=== PATIENT | male | born 1995 | race Caucasian/White ===

== ENCOUNTER 2023-01-29 21:25 | Inpatient (IN) ==
[2023-01-29] MEDS ORDERED: SODIUM CHLORIDE 0.9% 500 ML IV STA (22:14)
[2023-01-29 22:34] LABS: Basophils # (auto) 0.02 K/uL (0-0.2); Basophils % (auto) 0.1 %; Hematocrit (blood only) 40.9 % (42.0-52.0); Hemoglobin 14.8 g/dl (14.0-18.0); Immature Granulocytes # (auto) 0.35 K/uL (0.01-0.20); Immature Granulocytes % (auto) 2.4 %; Lymphocytes # (auto) 1.27 K/uL (1.2-3.4); Lymphocytes % (auto) 8.5 %; Mean Corpuscular Hemoglobin 31.3 pg (25.0-34.0); Mean Corpuscular Hgb Conc 36.2 g/dL (32.0-36.0); Mean Corpuscular Volume 86.5 fL (80.0-100.0); Mean Platelet Volume 11.3 fL (9.4-12.4); Monocytes # (auto) 0.65 K/uL (0.11-0.59); Monocytes % (auto) 4.4 %; Neutrophils % (auto) 84.6 %; Platelet Count 280 K/uL (130-400); RDW Coefficient of Variation 12.8 % (11.5-14.5); Red Blood Count 4.73 M/uL (4.70-6.10); White Blood Count 14.89 K/ul (4.8-10.8)
[2023-01-29 22:42] LABS: Albumin Globulin Ratio 0.9 (0.9-2); Albumin Level 3.5 gm/dl (3.4-5.0); BUN Creatinine Ratio 12.9 (10-20); Bilirubin,Total 0.7 mg/dl (0.2-1.0); Calcium 8.8 mg/dl (8.6-10.3); Creatinine Clr Calc Pharmacy 159.5 ml/min; Est GFR (African American) 117.6 ml/min; Est GFR (Non-African American) 101.5 ml/min; Total Protein 7.5 gm/dl (6.0-8.3)
[2023-01-29] MEDS ORDERED: PANTOprazole 40 MG in SYRINGE 0 ML IV ONE (23:22)
[2023-01-29] MEDS ORDERED: SODIUM CHLORIDE 0.9% 1000ML 1,000 ML IV ONE (23:22)
[2023-01-29] MEDS ORDERED: ACETAMINOPHEN 1,000 MG/100 ML VIAL IV STA (23:22)
--- NOTE | 2023-01-29 23:49 | Emergency Department Note ---
Impression & Plan Abdominal pain, Nausea & vomiting, Diarrhea, Pleural effusion ED Provider Note ED Provider Note NAME: LEONORA SHEARER AGE:27 SEX: Male : 1995 ARRIVES VIA: Private vehicle INFORMANT: Patient ED PROVIDER(s): Alda Estrada DO CHIEF COMPLAINT: Nausea, vomiting, diarrhea, abdominal pain HPI: This is a 27-year-old male presents emergency department due to concern for nausea, vomiting, diarrhea, abdominal pain. Patient states he first started feeling nauseated 1-1/2 to 2 weeks ago. He states several days later he began noticing some intermittent crampy abdominal pain. He states he did see his PCP and was given Zofran that did not improve his nausea. He states he then began having dry heaving was bringing up small bits of mucus and bile. He states he then began having diarrhea that was initially soft but is now fulminant watery diarrhea that is nonbloody. He denies any known sick contacts, change in medications, recent travel. Patient has had multiple prior abdominal surgeries including a fundoplication. PAST MEDICAL HISTORY:See Below PAST SURGICAL HISTORY:See Below FAMILY HISTORY:See Below SOCIAL HISTORY:See Below HOME MEDICATIONS:See Below ALLERGIES:See Below VITALS:See Below PHYSICAL EXAMINATION: GENERAL: alert, uncomfortable appearing, well nourished, no distress, non-toxic, BMI 41 EYE EXAM: normal conjunctiva, PERRL and EOM's grossly intact OROPHARYNX: no exudate, no erythema, lips, buccal mucosa, and tongue normal and mucous membranes are moist NECK: supple, no nuchal rigidity, no adenopathy, non-tender LUNGS: Clear to auscultation. Normal chest wall mechanics, no w/r/r HEART: no murmurs, S1 normal and S2 normal ABDOMEN: abdomen soft, diffuse abdominal tenderness with palpation, umbilical hernia noted with coughing although this is reducible, normo-active bowel sounds, no rebound or guarding. BACK: Back is symmetrical on inspection and there is no deformity, no midline tenderness, no CVA tenderness. SKIN: no rashes, petechiae, orbruising UPPER EXTREMITIES: upper extremities are grossly normal. FROM, nml pulses b/l. LOWER EXTREMITIES: No pitting edema. FROM, nml pulses b/l. NEURO EXAM: Normal sensorium, cranial nerves II-XII grossly intact, normal speech, no facial droop,nogross weakness of arms, no gross weakness of legs. Gross sensation intact. No ataxia. Vital Signs: reviewed and remarkable Differential Diagnosis: colitis, sbo, viral syndrome, diverticulitis, PUD, GI bleed, perforation, pancreatitis, as well as others were considered MEDICAL DECISION MAKING: This is a 27 yo male who presents with concern for 1.5-2 weeks of worsening GI symptoms. Patient was tachycardia on arrival, but other VS stable. Labs drawn and sent, IV established, EKG and CXR performed and interpreted at bedside, and patient placed on telemetry. Patient given IV fluids, IV tylenol, IV protonix, IV metoclopromide, and IV benadryl. He was sent for CT a/p. Umbilical hernia noted, not incarcerated, no SBO, no acute GI pathology, however left pleural effusion noted. CXR then added which revealed left pleural effusion additionally. I discussed all results with patient and family at bedside. Patient does have hx of asthma and states he previously had pna as a child. Blood cultures, covid swab, procal added and patient started on IV antibiotics. Case discussed with hospitalist for additional evaluation and mgmt. Patient without any respiratory distress or hypoxia in the ER. Mild hyponatremia and hypokalemia also noted. Consultation(s): [] ER Treatment Provided: See below Diagnostics Interpreted By Me: -ECG: sinus tachycardia at 124, nml axis, nml intervals, nonspecific ST/T wave changes -Cardiac Monitoring: An order was placed for continuous cardiac monitoring. The monitor shows a rate of 113 with sinus tachycardia rhythm. -Laboratory studies: As stated above and show below. -Imaging studies: X-ray Chest: A single view study of the chest was reviewed and was negative for cardiomegaly, focal infiltrate, pulmonary edema, or wide me diastinum. Left pleural effusion noted. Triage Nursing Note Reviewed Prior/Outside Records Reviewed Past Med/Surg History Medical History Anxiety and depression Asthma last exacerbation > 3 months ago, rescue inhaler use daily in the morning and HS Cervical radiculopathy Environmental and seasonal allergies Eosinophilic esophagitis GERD (gastroesophageal reflux disease) no current medications, controlled per pt History of atrial septal defect "spontaneous ASD closure on echo 12/1998" History of COVID-19 06/14/20-denies residual issues Hypertension controlled, stable per pt Post traumatic stress disorder denies concerns regarding upcoming surgery, OR room securing restraints/claustrophobia Pre-diabetes pt denies, states was on metformin and then d/c by PCP. Pre-op A1c 5.1% Sleep apnea not currently on treatment Tachycardia reports intermittent history, denies palpitations, dizziness, lightheadedness Temporomandibular joint disorder JAW CLICKING/has locked twice-last 3 yrs ago-unrelated to procedure per pt Surgical History Family history of reaction to anesthesia FATHER-WAKES UP IN MIDDLE OF PROCEDURE History of anesthesia reaction WAKES UP WITH ANESTHESIA-endoscopy History of appendectomy History of bronchoscopy MULTIPLE TIMES History of colonoscopy History of esophagogastroduodenoscopy (EGD) History of Katherine fundoplication 2009 AT [facility] Hx laparoscopic cholecystectomy FREDY ortiz Family History Grandfather (Maternal) Family history of diabetes mellitus Social History Smoking Status: Never smoker Tobacco Type: Smokeless Tobacco (Dip or Chew) Second Hand Exposure: No; Do You Dip or Chew Tobacco: Yes ("rarely"); Hx Alcohol Use: Yes Alcohol type: hard liquor Hx Substance Use: No Preferred Language: Frisian Communication Ability: Effective Kiln Hand Required: No Beliefs That Will Affect Care: None Current Living Situation: Alone Feels Safe at Home: Yes Assistive Devices: Contacts Allergies Allergies Allergy/AdvReac Type Severity Reaction Status Date / Time nitroglycerin Allergy Severe TROUBLE Verified 01/30/23 01:09 BREATHING Sulfa (Sulfonamide Allergy Intermediate EYES Verified 01/30/23 01:09 Antibiotics) SWELLING/WITH EYE DROPS sulfamethoxazole Allergy Intermediate EYES Verified 01/30/23 01:09 SWELLING trimethoprim Allergy Intermediate EYES Verified 01/30/23 01:09 SWELLING Bactrim Allergy Unknown UNK Verified 11/16/15 23:40 Home Meds Home Medications Medication Instructions Recorded Confirmed dupilumab 100 mg/0.67 mL 100 mg subcut Q14D 08/31/21 01/30/23 subcutaneous syringe (Gorb) buspirone 10 mg tablet 10 mg PO TID 01/30/23 01/30/23 cyclobenzaprine 10 mg tablet 10 mg PO TID PRN Spasms 01/30/23 01/30/23 gabapentin 300 mg capsule 300 mg PO TID 01/30/23 01/30/23 mirtazapine 15 mg disintegrating 15 mg translingual HS 01/30/23 01/30/23 tablet naltrexone 50 mg tablet 50 mg PO DAILY 01/30/23 01/30/23 ondansetron 4 mg disintegrating 4 mg translingual BID PRN Nausea 01/30/23 01/30/23 tablet prednisone 20 mg tablet 20 mg PO UD 01/30/23 01/30/23 Previous Rx's Medication Instructions Recorded albuterol sulfate 2.5 mg/3 mL 2.5 mg (3 mL) inhalation Q4H PRN 12/07/19 (0.083 %) solution for nebulization shortness of breath or wheezing #180 mL albuterol sulfate 90 mcg/actuation 2 puffs inhalation QID PRN 12/07/19 aerosol inhaler (Ventolin HFA) shortness of breath or wheezing #18 grams Results & Data (ED) Vital Signs Vital Signs - 24 hr 01/29/23 21:30 01/29/23 22:35 01/29/23 22:36 Temperature 36.7 C Temperature Source Temporal Artery Scan Pulse Rate 131 H 123 H Pulse Rate [Apical] 121 H Pulse Rate from SpO2 Sensor Respiratory Rate 16 20 Respiratory Effort / Characteristics Non-Labored Spontaneous Respiratory Depth Normal Blood Pressure 145/90 H Blood Pressure [Right Arm] 124/92 Blood Pressure Mean 108 Blood Pressure Mean [Right Arm] 102 Blood Pressure Position Sitting Pulse Oximetry 94 98 Oxygen Delivery Method Room Air Room Air Sepsis Recent Fever Within 48 Hours No Sepsis New/Unexplained Change in Mental Status No Sepsis Action Taken by Nursing No Action Required 01/29/23 23:30 01/30/23 02:00 01/30/23 02:34 Temperature Temperature Source Pulse Rate 113 H Pulse Rate [Apical] 121 H 112 H Pulse Rate from SpO2 Sensor Respiratory Rate 20 20 Respiratory Effort / Characteristics Respiratory Depth Blood Pressure Blood Pressure [Right Arm] 117/76 126/93 Blood Pressure Mean Blood Pressure Mean [Right Arm] 89 104 Blood Pressure Position Pulse Oximetry 96 92 Oxygen Delivery Method Room Air Room Air Sepsis Recent Fever Within 48 Hours Sepsis New/Unexplained Change in Mental Status Sepsis Action Taken by Nursing 01/29/23 22:33 01/29/23 22:34 01/29/23 23:00 Temperature Temperature Source Pulse Rate 121 H Pulse Rate [Apical] Pulse Rate from SpO2 Sensor Respiratory Rate 22 Respiratory Effort / Characteristics Respiratory Depth Blood Pressure 124/92 122/78 Blood Pressure [Right Arm] Blood Pressure Mean 105 89 Blood Pressure Mean [Right Arm] Blood Pressure Position Pulse Oximetry Oxygen Delivery Method Sepsis Recent Fever Within 48 Hours Sepsis New/Unexplained Change in Mental Status Sepsis Action Taken by Nursing 01/29/23 23:00 01/29/23 23:30 01/29/23 23:30 Temperature Temperature Source Pulse Rate 124 H 119 H Pulse Rate [Apical] Pulse Rate from SpO2 Sensor Respiratory Rate 17 10 L Respiratory Effort / Characteristics Respiratory Depth Blood Pressure 117/76 Blood Pressure [Right Arm] Blood Pressure Mean 91 Blood Pressure Mean [Right Arm] Blood Pressure Position Pulse Oximetry Oxygen Delivery Method Sepsis Recent Fever Within 48 Hours Sepsis New/Unexplained Change in Mental Status Sepsis Action Taken by Nursing 01/30/23 00:00 01/30/23 00:00 01/30/23 00:25 Temperature Temperature Source Pulse Rate 116 H Pulse Rate [Apical] Pulse Rate from SpO2 Sensor Respiratory Rate 16 Respiratory Effort / Characteristics Respiratory Depth Blood Pressure 80/54 L 96/79 L Blood Pressure [Right Arm] Blood Pressure Mean 69 86 Blood Pressure Mean [Right Arm] Blood Pressure Position Pulse Oximetry Oxygen Delivery Method Sepsis Recent Fever Within 48 Hours Sepsis New/Unexplained Change in Mental Status Sepsis Action Taken by Nursing 01/30/23 00:25 01/30/23 00:30 01/30/23 00:30 Temperature Temperature Source Pulse Rate 118 H 118 H Pulse Rate [Apical] Pulse Rate from SpO2 Sensor Respiratory Rate 11 L 13 Respiratory Effort / Characteristics Respiratory Depth Blood Pressure 101/72 Blood Pressure [Right Arm] Blood Pressure Mean 82 Blood Pressure Mean [Right Arm] Blood Pressure Position Pulse Oximetry Oxygen Delivery Method Sepsis Recent Fever Within 48 Hours Sepsis New/Unexplained Change in Mental Status Sepsis Action Taken by Nursing 01/30/23 01:00 01/30/23 01:59 01/30/23 01:59 Temperature Temperature Source Pulse Rate 109 H 111 H Pulse Rate [Apical] Pulse Rate from SpO2 Sensor 110 H 112 H Respiratory Rate 20 18 Respiratory Effort / Characteristics Respiratory Depth Blood Pressure 126/93 Blood Pressure [Right Arm] Blood Pressure Mean 104 Blood Pressure Mean [Right Arm] Blood Pressure Position Pulse Oximetry 95 93 Oxygen Delivery Method Sepsis Recent Fever Within 48 Hours Sepsis New/Unexplained Change in Mental Status Sepsis Action Taken by Nursing 01/30/23 02:00 Temperature Temperature Source Pulse Rate 112 H Pulse Rate [Apical] Pulse Rate from SpO2 Sensor 111 H Respiratory Rate 15 Respiratory Effort / Characteristics Respiratory Depth Blood Pressure Blood Pressure [Right Arm] Blood Pressure Mean Blood Pressure Mean [Right Arm] Blood Pressure Position Pulse Oximetry 93 Oxygen Delivery Method Sepsis Recent Fever Within 48 Hours Sepsis New/Unexplained Change in Mental Status Sepsis Action Taken by Nursing Laboratory Data 01/29/23 22:00 01/29/23 22:00 Lab Results 01/29/23 01/29/23 01/29/23 Range/Units 22:00 22:00 22:00 WBC 14.89 H (4.8-10.8) K/ul RBC 4.73 (4.70-6.10) M/uL Hgb 14.8 (14.0-18.0) g/dl Hct 40.9 L (42.0-52.0) % MCV 86.5 (80.0-100.0) fL MCH 31.3 (25.0-34.0) pg MCHC 36.2 H (32.0-36.0) g/dL RDW Std Deviation 40.0 (36.4-46.3) fL RDW Coeff of Pacheco 12.8 (11.5-14.5) % Plt Count 280 (130-400) K/uL MPV 11.3 (9.4-12.4) fL Immature Gran % (Auto) 2.4 % Neut % (Auto) 84.6 % Lymph % (Auto) 8.5 % Gaston % (Auto) 4.4 % Eos % (Auto) 0.0 % Baso % (Auto) 0.1 % Neut # (Auto) 12.60 H (1.40-6.50) K/uL Lymph # (Auto) 1.27 (1.2-3.4) K/uL Gaston # (Auto) 0.65 H (0.11-0.59) K/uL Eos # (Auto) 0.00 (0-0.50) K/uL Baso # (Auto) 0.02 (0-0.2) K/uL Immature Gran # (Auto) 0.35 H (0.01-0.20) K/uL Sodium 129 L (136-145) mmol/L Potassium 3.0 L (3.5-5.1) mmol/L Chloride 90 L (98-107) mmol/L Carbon Dioxide 27 (21-32) mmol/L Anion Gap 12 H (3-11) BUN 13 (6-23) mg/dl Creatinine 1.01 (0.6-1.4) mg/dl Est Cr Clr Drug Dosing 159.5 ml/min Est GFR ( Amer) 117.6 ml/min Est GFR (Non-Af Amer) 101.5 ml/min BUN/Creatinine Ratio 12.9 (10-20) Glucose 123 H (70-99(Fasting)) mg/dl Calcium 8.8 (8.6-10.3) mg/dl Magnesium 2.1 (1.7-2.4) mg/dl Total Bilirubin 0.7 (0.2-1.0) mg/dl AST 42 H (13-39) U/L ALT 29 (7-52) U/L Alkaline Phosphatase 59 (34-104) U/L Total Protein 7.5 (6.0-8.3) gm/dl Albumin 3.5 (3.4-5.0) gm/dl Globulin 4.0 (2.5-4.0) gm/dl Albumin/Globulin Ratio 0.9 (0.9-2) Procalcitonin Cancelled Adenovirus (PCR) (NotDetected) B. pertussis DNA (PCR) (NotDetected) B.parapertussis DNA PCR (NotDetected) C. pneumoniae DNA (PCR) (NotDetected) Coronavirus OC43 (PCR) (NotDetected) Coronavirus HKU1 (PCR) (NotDetected) Coronavirus 229E (PCR) (NotDetected) SARS-CoV-2 (PCR) (NotDetected) Coronavirus NL63 (PCR) (NotDetected) Human Metapneumovir PCR (NotDetected) Influenza Type A (PCR) (NotDetected) Influenza Type B (PCR) (NotDetected) M. pneumoniae (PCR) (NotDetected) Parainfluenza 1 (PCR) (NotDetected) Parainfluenza 2 (PCR) (NotDetected) Parainfluenza 3 (PCR) (NotDetected) Parainfluenza 4 (PCR) (NotDetected) RSV (PCR) (NotDetected) Entero/Rhino (PCR) (NotDetected) 01/30/23 01/30/23 Range/Units 02:09 02:13 WBC (4.8-10.8) K/ul RBC (4.70-6.10) M/uL Hgb (14.0-18.0) g/dl Hct (42.0-52.0) % MCV (80.0-100.0) fL MCH (25.0-34.0) pg MCHC (32.0-36.0) g/dL RDW Std Deviation (36.4-46.3) fL RDW Coeff of Pacheco (11.5-14.5) % Plt Count (130-400) K/uL MPV (9.4-12.4) fL Immature Gran % (Auto) % Neut % (Auto) % Lymph % (Auto) % Gaston % (Auto) % Eos % (Auto) % Baso % (Auto) % Neut # (Auto) (1.40-6.50) K/uL Lymph # (Auto) (1.2-3.4) K/uL Gaston # (Auto) (0.11-0.59) K/uL Eos # (Auto) (0-0.50) K/uL Baso # (Auto) (0-0.2) K/uL Immature Gran # (Auto) (0.01-0.20) K/uL Sodium (136-145) mmol/L Potassium (3.5-5.1) mmol/L Chloride (98-107) mmol/L Carbon Dioxide (21-32) mmol/L Anion Gap (3-11) BUN (6-23) mg/dl Creatinine (0.6-1.4) mg/dl Est Cr Clr Drug Dosing ml/min Est GFR ( Amer) ml/min Est GFR (Non-Af Amer) ml/min BUN/Creatinine Ratio (10-20) Glucose (70-99(Fasting)) mg/dl Calcium (8.6-10.3) mg/dl Magnesium (1.7-2.4) mg/dl Total Bilirubin (0.2-1.0) mg/dl AST (13-39) U/L ALT (7-52) U/L Alkaline Phosphatase (34-104) U/L Total Protein (6.0-8.3) gm/dl Albumin (3.4-5.0) gm/dl Globulin (2.5-4.0) gm/dl Albumin/Globulin Ratio (0.9-2) Procalcitonin 0.72 H Adenovirus (PCR) Not Detected (NotDetected) B. pertussis DNA (PCR) Not Detected (NotDetected) B.parapertussis DNA PCR Not Detected (NotDetected) C. pneumoniae DNA (PCR) Not Detected (NotDetected) Coronavirus OC43 (PCR) Not Detected (NotDetected) Coronavirus HKU1 (PCR) Not Detected (NotDetected) Coronavirus 229E (PCR) Not Detected (NotDetected) SARS-CoV-2 (PCR) Not Detected (NotDetected) Coronavirus NL63 (PCR) Not Detected (NotDetected) Human Metapneumovir PCR Not Detected (NotDetected) Influenza Type A (PCR) Not Detected (NotDetected) Influenza Type B (PCR) Not Detected (NotDetected) M. pneumoniae (PCR) Not Detected (NotDetected) Parainfluenza 1 (PCR) Not Detected (NotDetected) Parainfluenza 2 (PCR) Not Detected (NotDetected) Parainfluenza 3 (PCR) Not Detected (NotDetected) Parainfluenza 4 (PCR) Not Detected (NotDetected) RSV (PCR) Not Detected (NotDetected) Entero/Rhino (PCR) Not Detected (NotDetected) Administered Medications Buspirone HCl (Buspirone 5 Mg Tab) 10 mg PO TID [facility] Stop: 03/01/23 08:59 Last Admin: 01/30/23 09:33 Dose: 10 mg Documented By: JACK Enoxaparin Sodium (Enoxaparin Inj 40 Mg/0.4 Ml Syr) 40 mg SQ QAM OMI Stop: 03/01/23 08:59 Last Admin: 01/30/23 09:34 Dose: Not Given Documented By: JACK Folic Acid (Folic Acid 1 Mg Tab) 1 mg PO QAM OMI Stop: 03/01/23 08:59 Last Admin: 01/30/23 09:33 Dose: 1 mg Documented By: JACK Gabapentin (Gabapentin 300 Mg Cap) 300 mg PO TID OMI Stop: 03/01/23 08:59 Last Admin: 01/30/23 09:33 Dose: 300 mg Documented By: JACK Ampicillin Sodium/Sulbactam Sodium 3,000 mg/ Sodium Chloride 108 mls @ 200 mls/hr IV Q6H OMI; Protocol Stop: 02/06/23 09:59 Last Infusion: 01/30/23 11:55 Dose: 0 mls/hr Documented By: Admin: 01/30/23 10:26 Dose: 200 mls/hr Documented By: LILA Alteplase, Recombinant 10 mg/ (Syringe) 60 mls @ 0.0006 mls/min IPL Q12H OMI; Protocol Stop: 02/02/23 08:59 Last Admin: 01/30/23 10:18 Dose: 0.0006 mls/min Documented By: TRAVIS Co-signed By: LILA Dornase Ang 5 ml/ Syringe 30 mls @ 0.0006 mls/min IPL Q12H OMI; Protocol Stop: 02/02/23 09:59 Last Admin: 01/30/23 11:35 Dose: 0.0006 mls/min Documented By: TRAVIS Morphine Sulfate (Morphine Sulfate 4 Mg/Ml 1 Ml Carp\\Vial) 4 mg IV Q6H PRN PRN Reason: Pain Stop: 02/13/23 02:55 Last Admin: 01/30/23 09:55 Dose: 4 mg Documented By: JACK Multivitamins (Multivitamin Tab) 1 tab PO QAM OMI Stop: 03/01/23 08:59 Last Admin: 01/30/23 09:33 Dose: 1 tab Documented By: JACK Discontinued Medications Diphenhydramine HCl (Diphenhydramine 50 Mg/Ml Vial) 25 mg IV NOW STA Stop: 01/30/23 00:17 Last Admin: 01/30/23 00:32 Dose: 25 mg Documented By: YAQUELIN Sodium Chloride (Nss) 500 mls @ 999 mls/hr IV .Q31M STA Stop: 01/29/23 22:44 Last Infusion: 01/29/23 23:42 Dose: 0 mls/hr Documented By: Admin: 01/29/23 22:33 Dose: 999 mls/hr Documented By: JASPREET Sodium Chloride (Nss 1000ml) 1,000 mls @ 999 mls/hr IV .Q1H1M ONE Stop: 01/30/23 00:22 Last Infusion: 01/30/23 01:06 Dose: 0 mls/hr Documented By: Admin: 01/29/23 23:37 Dose: 999 mls/hr Documented By: YAQUELIN Pantoprazole Sodium 40 mg/ (Syringe) 10 mls @ 5 mls/min IV NOW ONE Stop: 01/29/23 23:23 Last Admin: 01/29/23 23:37 Dose: 5 mls/min Documented By: YAQUELIN Acetaminophen (Ofirmev) 1,000 mg in 100 mls @ 400 mls/hr IV NOW STA Stop: 01/29/23 23:36 Last Infusion: 01/30/23 00:19 Dose: 0 mls/hr Documented By: Admin: 01/29/23 23:37 Dose: 400 mls/hr Documented By: YAQUELIN Ceftriaxone Sodium (Rocephin) 2,000 mg in 70 mls @ 140 mls/hr IV NOW STA Stop: 01/30/23 02:07 Last Infusion: 01/30/23 03:06 Dose: 0 mls/hr Documented By: Admin: 01/30/23 01:57 Dose: 140 mls/hr Documented By: YAQUELIN Metronidazole (Flagyl) 500 mg in 100 mls @ 100 mls/hr IV NOW STA; Protocol Stop: 01/30/23 02:37 Last Infusion: 01/30/23 03:05 Dose: 0 mls/hr Documented By: Admin: 01/30/23 01:58 Dose: 100 mls/hr Documented By: YAQUELIN Sodium Chloride (Nss 1000ml) 1,000 mls @ 125 mls/hr IV .Q8H OMI Stop: 03/01/23 01:44 Last Admin: 01/30/23 03:05 Dose: Not Given Documented By: ALMITA Thiamine HCl 100 mg/ Syringe 10 mls @ 2 mls/min IV NOW STA Stop: 01/30/23 02:39 Last Admin: 01/30/23 04:08 Dose: 2 mls/min Documented By: ALMITA Potassium Chloride (K Matthew / Wtr) 10 meq in 100 mls @ 100 mls/hr IV Q1H OMI Stop: 01/30/23 07:59 Last Admin: 01/30/23 12:37 Dose: 50 mls/hr Documented By: Infusion: 01/30/23 12:37 Dose: 50 mls/hr Documented By: Admin: 01/30/23 11:07 Dose: 50 mls/hr Documented By: Infusion: 01/30/23 09:40 Dose: 0 mls/hr Documented By: Admin: 01/30/23 07:06 Dose: 50 mls/hr Documented By: Infusion: 01/30/23 07:05 Dose: 0 mls/hr Documented By: Infusion: 01/30/23 05:06 Dose: 50 mls/hr Documented By: Admin: 01/30/23 05:05 Dose: 100 mls/hr Documented By: ALMITA Ampicillin Sodium/Sulbactam Sodium 3,000 mg/ Sodium Chloride 108 mls @ 200 mls/hr IV NOW STA Stop: 01/30/23 03:29 Last Infusion: 01/30/23 05:06 Dose: 0 mls/hr Documented By: Admin: 01/30/23 04:07 Dose: 200 mls/hr Documented By: ALMITA Lactated Ringer's (Lr) 1,000 mls @ 100 mls/hr IV .Q10H ONE Stop: 01/30/23 12:55 Last Infusion: 01/30/23 10:20 Dose: 0 mls/hr Documented By: Admin: 01/30/23 04:09 Dose: 100 mls/hr Documented By: ALMITA Ioversol (Ioversol 350 Mg 125ml Prefilled Syringe) 125 ml IV ONCE ONE Stop: 01/30/23 00:25 Last Admin: 01/30/23 00:24 Dose: 114 ml Documented By: BRENDAN Ipratropium Dover (Ipratropium [place] Neb Soln 0.02% 2.5 Ml Vial) 0.5 mg INH NOW STA Stop: 01/30/23 04:32 Last Admin: 01/30/23 05:06 Dose: 0.5 mg Documented By: ALMITA Levalbuterol HCl (Levalbuterol 1.25 Mg/3 Ml Neb) 1.25 mg NEB NOW STA Stop: 01/30/23 04:32 Last Admin: 01/30/23 05:06 Dose: 1.25 mg Documented By: ALMITA Lidocaine HCl (Lidocaine 1% Local 20 Ml Vial) Confirm Administered Dose 1 ml .ROUTE .STK-MED ONE Stop: 01/30/23 08:16 Last Admin: 01/30/23 08:30 Dose: 10 ml Documented By: JACK Metoclopramide HCl (Metoclopramide Hcl Inj 5 Mg/Ml 2 Ml Vial) 5 mg IV ONE ONE Stop: 01/30/23 00:17 Last Admin: 01/30/23 00:32 Dose: 5 mg Documented By: YAQUELIN Imaging Data Radiologist's Impression: Chest X-Ray 01/30/23 01:31 XR chest 1V portable CLINICAL HISTORY: pleural effusion TECHNIQUE: Single frontal radiograph of the chest was obtained. Comparison: Comparison is made to chest radiograph 09/07/2021 FINDINGS: No lines and tubes are seen. Cardiomegaly is noted. Loculated hydropneumothorax is seen in the left pleura. IMPRESSION: Loculated hydropneumothorax is in the left hemithorax. ACT 112: Negative or not required by law. Electronically signed by: Froilan Galvan M.D. 01/30/2023 7:50 AM Discharge Plan Visit Data Chief Complaint: Dehydration Stated Complaint: DEGYDRATED, NOT RETAINING ED Provider: Alda Estrada Discharge Problem: Abdominal pain, Nausea & vomiting, Diarrhea, Pleural effusion Patient Disposition: Admitted As Inpatient Discharge Instructions Interventions: ED Discharge Assessment Last Done: 01/30/23 03:12
[2023-01-30] MEDS ORDERED: diphenhydrAMINE 50 MG/ML VIAL IV STA (00:16)
[2023-01-30] MEDS ORDERED: METOCLOPRAMIDE HCL INJ 5 MG/ML 2 ML VIAL IV ONE (00:16)
[2023-01-30] MEDS ORDERED: IOVERSOL 350 MG 125mL Prefilled Syringe IV ONE (00:24)
--- NOTE | 2023-01-30 01:06 | CT Scan Report ---
Exam(s): CT ABDOMEN + PELVIS With Contrast IV Amt: 114 ML OPTIRAY 350 EXAM: CT Abdomen and Pelvis With Intravenous Contrast CLINICAL HISTORY: Reason for exam: n/v/d, abd pain. TECHNIQUE: Axial computed tomography images of the abdomen and pelvis with intravenous contrast. CTDI is 36 mGy and DLP is 2013.73 mGy-cm. Automated exposure control was utilized for the study. A dose lowering technique was utilized adhering to the principles of ALARA. CONTRAST: Patient received 114 ML OPTIRAY 350 of IV contrast COMPARISON: No relevant prior studies available. FINDINGS: Lung bases: Unremarkable. No mass. No consolidation. Pleural space: Large left pleural effusion which is partially loculated and contains large volume air. Correlate for empyema with possibility of gas-forming bacteria. Chest tube should be considered. ABDOMEN: Liver: Hepatic steatosis. Gallbladder and bile ducts: Cholecystectomy. No ductal dilation. Pancreas: Unremarkable. No mass. No ductal dilation. Spleen: Unremarkable. No splenomegaly. Adrenals: Unremarkable. No mass. Kidneys and ureters: Unremarkable. No solid mass. No hydronephrosis. Stomach and bowel: Unremarkable. No obstruction. No mucosal thickening. PELVIS: Appendix: No findings to suggest acute appendicitis. Bladder: Unremarkable. No mass. Reproductive: Unremarkable as visualized. ABDOMEN and PELVIS: Intraperitoneal space: Unremarkable. No free air. No significant fluid collection. Bones/joints: No acute fracture. No dislocation. Soft tissues: Fat-containing umbilical hernia measures 4.4 x 3.7 cm. Vasculature: Unremarkable. No abdominal aortic aneurysm. Lymph nodes: Unremarkable. No enlarged lymph nodes. IMPRESSION: 1. Large left pleural effusion which is partially loculated and contains large volume air. Correlate for empyema with possibility of gas-forming bacteria. Chest tube should be considered. 2. Hepatic steatosis. 3. Cholecystectomy. 4. Fat-containing umbilical hernia measures 4.4 x 3.7 cm. Electronically signed by: Edis Noyola MD 01/30/23 01:05 AM
[2023-01-30] MEDS ORDERED: cefTRIAXone SODIUM 2,000 MG/70 ML BAG IV STA (01:38)
[2023-01-30] MEDS ORDERED: metroNIDAZOLE 500 MG/100 ML BAG IV STA (01:38)
[2023-01-30] MEDS ORDERED: SODIUM CHLORIDE 0.9% 1000ML 1,000 ML IV SCH (01:45)
[2023-01-30] MEDS ORDERED: THIAMINE HCL 100 MG in SYRINGE 9 ML IV STA (02:35)
--- NOTE | 2023-01-30 02:52 | History & Physical Report ---
Date of Service January 30, 2023 Assessment & Plan (1) Sepsis: Plan: Secondary to left-sided empyema Patient predisposed to aspiration episodes given alcohol abuse. Hypokalemia secondary to gastroenteritis rule out bacterial causes HTN, BP on the lower side, not on maintenance medications hx ASD bronchial asthma, not in acute exacerbation hx eosinophilic esophagitis/GERD prediabetes, hemoglobin A1c of 5.1 last year anxiety/mood disorder, at baseline Medical telemetry CS, Unasyn Dedicated CT chest for empyema Pulmonology consult re: empyema Replace electrolytes stool CS, C. difficile DVT prophylaxis. Lovenox subcu Full code Text document was generated using Voalte voice recognition software. It may contain grammatical or spelling errors. Kindly contact undersigned for clarification of any documentation item in question. History of Present Illness Chief Complaint: Cough, abdominal pain Primary Care Provider: Lorenza Mcdonough DO History obtained from patient, family, and records. Medical history significant for HTN, ASD, bronchial asthma, eosinophilic esophag itis, GERD status post surgery, prediabetes, [place]-Schlatter disease, anxiety/mood disorder, alcohol abuse. Last confinement November 2015 for chest pain. ACS ruled out. 2 weeks ago, patient passed out outside a local gasoline station. Patient evaluated at [facility] ER. Symptoms attributed to alcohol abuse as per patient. Last week, patient noted cough symptoms productive of junky yellow-green sputum. No chest pain, no SOB. Patient unaware of aspiration episodes. Patient noted achy abdominal pain worsened by cough symptoms followed by watery diarrhea symptoms. 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 No recent antibiotic Rx. IV Ceftriaxone and Flagyl administered at the ER for empyema on CT imaging. 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 Allergies Allergy/AdvReac Type Severity Reaction Status Date / Time medel Allergy Severe EOSINPHILS Verified 01/30/23 01:09 IN THROAT corn Allergy Severe EOSINOPHILS Verified 01/30/23 01:09 IN THROAT nitroglycerin Allergy Severe TROUBLE Verified 01/30/23 01:09 BREATHING oats Allergy Severe EOSINOPHILS Verified 09/27/21 14:39 IN THROAT peas Allergy Severe EOSINOPHILS Verified 01/30/23 01:09 IN THROAT pork derived (porcine) Allergy Severe EOSINOPHILS Verified 01/30/23 01:09 IN THROAT soy Allergy Severe ESINOPHILS Verified 01/30/23 01:09 IN THROAT Sulfa (Sulfonamide Allergy Intermediate EYES Verified 01/30/23 01:09 Antibiotics) SWELLING/WITH EYE DROPS sulfamethoxazole Allergy Intermediate EYES Verified 01/30/23 01:09 SWELLING trimethoprim Allergy Intermediate EYES Verified 01/30/23 01:09 SWELLING Bactrim Allergy Unknown UNK Verified 11/16/15 23:40 Home Medications Medication Instructions Recorded Confirmed Type albuterol sulfate 2.5 mg/3 mL 2.5 mg (3 mL) inhalation Q4H PRN 12/07/19 01/30/23 Rx (0.083 %) solution for nebulization shortness of breath or wheezing #180 mL albuterol sulfate 90 mcg/actuation 2 puffs inhalation QID PRN 12/07/19 01/30/23 Rx aerosol inhaler (Ventolin HFA) shortness of breath or wheezing #18 grams dupilumab 100 mg/0.67 mL 100 mg subcut Q14D 08/31/21 01/30/23 History subcutaneous syringe (Dupixent) buspirone 10 mg tablet 10 mg PO TID 01/30/23 01/30/23 History cyclobenzaprine 10 mg tablet 10 mg PO TID PRN Spasms 01/30/23 01/30/23 History gabapentin 300 mg capsule 300 mg PO TID 01/30/23 01/30/23 History mirtazapine 15 mg disintegrating 15 mg translingual HS 01/30/23 01/30/23 History tablet naltrexone 50 mg tablet 50 mg PO DAILY 01/30/23 01/30/23 History ondansetron 4 mg disintegrating 4 mg translingual BID PRN Nausea 01/30/23 01/30/23 History tablet prednisone 20 mg tablet 20 mg PO UD 01/30/23 01/30/23 History Past Med/Surg History Medical History Anxiety and depression Asthma last exacerbation > 3 months ago, rescue inhaler use daily in the morning and HS Cervical radiculopathy Environmental and seasonal allergies Eosinophilic esophagitis GERD (gastroesophageal reflux disease) no current medications, controlled per pt History of atrial septal defect "spontaneous ASD closure on echo 12/1998" History of COVID-19 06/14/20-denies residual issues Hypertension controlled, stable per pt Post traumatic stress disorder denies concerns regarding upcoming surgery, OR room securing restraints/claustrophobia Pre-diabetes pt denies, states was on metformin and then d/c by PCP. Pre-op A1c 5.1% Sleep apnea not currently on treatment Tachycardia reports intermittent history, denies palpitations, dizziness, lightheadedness Temporomandibular joint disorder JAW CLICKING/has locked twice-last 3 yrs ago-unrelated to procedure per pt Surgical History Family history of reaction to anesthesia FATHER-WAKES UP IN MIDDLE OF PROCEDURE History of anesthesia reaction WAKES UP WITH ANESTHESIA-endoscopy History of appendectomy History of bronchoscopy MULTIPLE TIMES History of colonoscopy History of esophagogastroduodenoscopy (EGD) History of Katherine fundoplication 2009 AT [place] Hx laparoscopic cholecystectomy [place] Family History Grandfather (Maternal) Family history of diabetes mellitus Social History Smoking Status: Never smoker Tobacco Type: Smokeless Tobacco (Dip or Chew) Second Hand Exposure: No; Do You Dip or Chew Tobacco: Yes ("rarely"); Hx Alcohol Use: Yes Alcohol type: hard liquor Hx Substance Use: No Preferred Language: Yi Communication Ability: Effective Clothing Man Required: No Beliefs That Will Affect Care: None Current Living Situation: Alone Feels Safe at Home: Yes Safety Concerns: Feels Safe At This Time Assistive Devices: Contacts Review of Systems Review of Systems: As per HPI, all other systems reviewed and negative Physical Exam Physical Exam: GENERAL: Slightly uncomfortable, pleasant, morbidly obese, looks older than stated age, no respiratory distress SKIN: Normal color, warm HEENT: [place] palpebral conjunctivae, no ptosis, dry buccal mucosa NECK : Supple, short neck, no tenderness CHEST : Decreased breath sounds, no tenderness HEART : Tachycardic, no obvious murmurs ABDOMEN: Some distention, central abdominal tenderness EXTREMITIES : Minimal LE swelling, no LE tenderness, no other conspicuous deformities noted NEUROLOGIC : Coherent, no facial asymmetry, no other gross focality Results & Data Results & Data Vital Signs (Past 12 Hours) Vital Signs Temp Pulse Pulse Resp BP BP Pulse Ox 01/30/23 02:34 113 H 01/30/23 02:00 112 H 20 126/93 92 01/29/23 23:30 121 H 20 117/76 96 01/29/23 22:36 123 H 01/29/23 22:35 121 H 20 124/92 98 01/29/23 21:30 36.7 C 131 H 16 145/90 H 94 O2 Del Method 01/30/23 02:34 01/30/23 02:00 Room Air 01/29/23 23:30 Room Air 01/29/23 22:36 01/29/23 22:35 Room Air 01/29/23 21:30 Room Air Laboratory Results Laboratory Results WBC 14.89 K/ul (4.8-10.8) H 01/29/23 22:00 RBC 4.73 M/uL (4.70-6.10) 01/29/23 22:00 Hgb 14.8 g/dl (14.0-18.0) 01/29/23 22:00 Hct 40.9 % (42.0-52.0) L 01/29/23 22:00 MCV 86.5 fL (80.0-100.0) 01/29/23 22:00 MCH 31.3 pg (25.0-34.0) 01/29/23 22:00 MCHC 36.2 g/dL (32.0-36.0) H 01/29/23 22:00 RDW Std Deviation 40.0 fL (36.4-46.3) 01/29/23 22:00 RDW Coeff of Pacheco 12.8 % (11.5-14.5) 01/29/23 22:00 Plt Count 280 K/uL (130-400) 01/29/23 22:00 MPV 11.3 fL (9.4-12.4) 01/29/23 22:00 Immature Gran % (Auto) 2.4 % 01/29/23 22:00 Neut % (Auto) 84.6 % 01/29/23 22:00 Lymph % (Auto) 8.5 % 01/29/23 22:00 [place] % (Auto) 4.4 % 01/29/23 22:00 Eos % (Auto) 0.0 % 01/29/23 22:00 Baso % (Auto) 0.1 % 01/29/23 22:00 Neut # (Auto) 12.60 K/uL (1.40-6.50) H 01/29/23 22:00 Lymph # (Auto) 1.27 K/uL (1.2-3.4) 01/29/23 22:00 [place] # (Auto) 0.65 K/uL (0.11-0.59) H 01/29/23 22:00 Eos # (Auto) 0.00 K/uL (0-0.50) 01/29/23 22:00 Baso # (Auto) 0.02 K/uL (0-0.2) 01/29/23 22:00 Immature Gran # (Auto) 0.35 K/uL (0.01-0.20) H 01/29/23 22:00 Sodium 129 mmol/L (136-145) L 01/29/23 22:00 Potassium 3.0 mmol/L (3.5-5.1) L 01/29/23 22:00 Chloride 90 mmol/L (98-107) L 01/29/23 22:00 Carbon Dioxide 27 mmol/L (21-32) 01/29/23 22:00 Anion Gap 12 (3-11) H 01/29/23 22:00 BUN 13 mg/dl (6-23) 01/29/23 22:00 Creatinine 1.01 mg/dl (0.6-1.4) 01/29/23 22:00 Est Cr Clr Drug Dosing 159.5 ml/min 01/29/23 22:00 Est GFR ( Amer) 117.6 ml/min 01/29/23 22:00 Est GFR (Non-Af Amer) 101.5 ml/min 01/29/23 22:00 BUN/Creatinine Ratio 12.9 (10-20) 01/29/23 22:00 Glucose 123 mg/dl (70-99(Fasting)) H 01/29/23 22:00 Calcium 8.8 mg/dl (8.6-10.3) 01/29/23 22:00 Total Bilirubin 0.7 mg/dl (0.2-1.0) 01/29/23 22:00 AST 42 U/L (13-39) H 01/29/23 22:00 ALT 29 U/L (7-52) 01/29/23 22:00 Alkaline Phosphatase 59 U/L (34-104) 01/29/23 22:00 Total Protein 7.5 gm/dl (6.0-8.3) 01/29/23 22:00 Albumin 3.5 gm/dl (3.4-5.0) 01/29/23 22:00 Globulin 4.0 gm/dl (2.5-4.0) 01/29/23 22:00 Albumin/Globulin Ratio 0.9 (0.9-2) 01/29/23 22:00 Procalcitonin Cancelled 01/29/23 22:00 Impressions Abdomen/Pelvis CT 01/29/23 23:22 Exam(s): CT ABDOMEN + PELVIS With Contrast IV Amt: 114 ML OPTIRAY 350 EXAM: CT Abdomen and Pelvis With Intravenous Contrast CLINICAL HISTORY: Reason for exam: n/v/d, abd pain. TECHNIQUE: Axial computed tomography images of the abdomen and pelvis with intravenous contrast. CTDI is 36 mGy and DLP is 2013.73 mGy-cm. Automated exposure control was utilized for the study. A dose lowering technique was utilized adhering to the principles of ALARA. CONTRAST: Patient received 114 ML OPTIRAY 350 of IV contrast COMPARISON: No relevant prior studies available. FINDINGS: Lung bases: Unremarkable. No mass. No consolidation. Pleural space: Large left pleural effusion which is partially loculated and contains large volume air. Correlate for empyema with possibility of gas-forming bacteria. Chest tube should be considered. ABDOMEN: Liver: Hepatic steatosis. Gallbladder and bile ducts: Cholecystectomy. No ductal dilation. Pancreas: Unremarkable. No mass. No ductal dilation. Spleen: Unremarkable. No splenomegaly. Adrenals: Unremarkable. No mass. Kidneys and ureters: Unremarkable. No solid mass. No hydronephrosis. Stomach and bowel: Unremarkable. No obstruction. No mucosal thickening. PELVIS: Appendix: No findings to suggest acute appendicitis. Bladder: Unremarkable. No mass. Reproductive: Unremarkable as visualized. ABDOMEN and PELVIS: Intraperitoneal space: Unremarkable. No free air. No significant fluid collection. Bones/joints: No acute fracture. No dislocation. Soft tissues: Fat-containing umbilical hernia measures 4.4 x 3.7 cm. Vasculature: Unremarkable. No abdominal aortic aneurysm. Lymph nodes: Unremarkable. No enlarged lymph nodes. IMPRESSION: 1. Large left pleural effusion which is partially loculated and contains large volume air. Correlate for empyema with possibility of gas-forming bacteria. Chest tube should be considered. 2. Hepatic steatosis. 3. Cholecystectomy. 4. Fat-containing umbilical hernia measures 4.4 x 3.7 cm. Electronically signed by: Edis Noyola MD 01/30/23 01:05 AM Diagnostic Findings EKG as per my interpretation :Rate 125, sinus tachycardia, normal axis, T wave abnormalities inferior leads
[2023-01-30 02:53] LABS: Magnesium 2.1 mg/dl (1.7-2.4)
[2023-01-30] MEDS ORDERED: LORazepam 2 MG/1 ML VIAL IV PRN (02:56)
[2023-01-30] MEDS ORDERED: LACTATED RINGER'S 1,000 ML IV ONE (02:56)
[2023-01-30] MEDS ORDERED: AMPICILLIN/SULBACTAM SOD 3,000 MG in 0.9 % SODIUM CHLORIDE 100 ML IV STA (02:57)
[2023-01-30 03:12] LABS: Adenovirus PCR Not Detected (NotDetected); Bordetella parapertussis PCR Not Detected (NotDetected); Bordetella pertussis PCR Not Detected (NotDetected); Chlamydia pneumoniae PCR Not Detected (NotDetected); Coronavirus 229E PCR Not Detected (NotDetected); Coronavirus CoV-2 (COVID19)PCR Not Detected (NotDetected); Coronavirus HKU1 PCR Not Detected (NotDetected); Coronavirus NL63 PCR Not Detected (NotDetected); Coronavirus OC43PCR Not Detected (NotDetected); Human Metapneumovirus PCR Not Detected (NotDetected); Influenza A PCR Not Detected (NotDetected); Influenza B PCR Not Detected (NotDetected); Mycoplasma pneumoniae PCR Not Detected (NotDetected); Parainfluenza Virus 1 PCR Not Detected (NotDetected); Parainfluenza Virus 2 PCR Not Detected (NotDetected); Parainfluenza Virus 3 PCR Not Detected (NotDetected); Parainfluenza Virus 4 PCR Not Detected (NotDetected); Respiratory Syncytial VirusPCR Not Detected (NotDetected); Rhinovirus/Enterovirus PCR Not Detected (NotDetected)
--- NOTE | 2023-01-30 04:20 | CT Scan Report ---
Exam(s): CT CHEST Without Contrast EXAM: CT Chest Without Intravenous Contrast CLINICAL HISTORY: Reason for exam: empyema. TECHNIQUE: Axial computed tomography images of the chest without intravenous contrast. CTDI is Automated exposure control was utilized for the study. A dose lowering technique was utilized adhering to the principles of ALARA. COMPARISON: CT chest August 05, 2018. FINDINGS: Lungs: Unremarkable. No mass. No consolidation. Pleural space: Large left pleural effusion which is partially loculated and contains large volume air. Correlate for empyema with possibility of gas-forming bacteria. Chest tube should be considered. No right infiltrate or pneumothorax. Heart: Mild soft tissue density overlying the pericardium measuring approximately 6 x 1 x 1.4 cm, which is indeterminate (series 400 image 27). This is new when compared to August 05, 2018. Correlate with cardiac echocardiogram. No significant coronary artery calcifications. Normal heart size. Bones/joints: Unremarkable. No acute fracture. No dislocation. Soft tissues: Unremarkable. Vasculature: Unremarkable. No thoracic aortic aneurysm. Lymph nodes: Unremarkable. No enlarged lymph nodes. Liver: Severe hepatic steatosis. Other findings: 28.14 mGy and DLP is 1040.36 mGy-cm. IMPRESSION: 1. Large left pleural effusion which is partially loculated and contains large volume air. Correlate for empyema with possibility of gas-forming bacteria. Chest tube should be considered. 2. Mild soft tissue density overlying the pericardium measuring approximately 6 x 1 x 1.4 cm, which is indeterminate (series 400 image 27). This is new when compared to August 05, 2018. Correlate with cardiac echocardiogram. Electronically signed by: Edis Noyola MD 01/30/23 04:19 AM
[2023-01-30] MEDS ORDERED: IPRATROPIUM BROMIDE NEB SOLN 0.02% 2.5 ML VIAL INH STA (04:31)
[2023-01-30] MEDS ORDERED: XOPENEX/ATROVENT 1.25mg/0.5MG NEB COMBO NEB STA (04:31)
[2023-01-30] MEDS ORDERED: LEVALBUTEROL 1.25 MG/3 ML NEB NEB STA (04:31)
[2023-01-30 04:45] LABS: Thyroid Stimulating Hormone 6.091 uIu/ml (0.300-4.500)
[2023-01-30 04:59] LABS: INR 1.1 (0.9-1.1); Prothrombin Time 12.4 Seconds (9.0-12.0)
[2023-01-30] MEDS: POTASSIUM CHLORIDE / WTR 10 MEQ/100 ML PLCT IV SCH ×5 (05:05→14:47)
[2023-01-30 05:21] LABS: T4 Free Thyroxine 1.07 ng/dl (0.61-1.60)
--- NOTE | 2023-01-30 07:51 | XRay Report ---
XR chest 1V portable CLINICAL HISTORY: pleural effusion TECHNIQUE: Single frontal radiograph of the chest was obtained. Comparison: Comparison is made to chest radiograph 09/07/2021 FINDINGS: No lines and tubes are seen. Cardiomegaly is noted. Loculated hydropneumothorax is seen in the left p leura. IMPRESSION: Loculated hydropneumothorax is in the left hemithorax. ACT 112: Negative or not required by law. Electronically signed by: Froilan Galvan M.D. 01/30/2023 7:50 AM
[2023-01-30] MEDS ORDERED: LIDOCAINE 1% LOCAL 20 ML VIAL ONE (08:15)
--- NOTE | 2023-01-30 08:44 | XRay Report ---
SINGLE VIEW CHEST CLINICAL HISTORY: Status post thoracentesis. Chest tube placement. FINDINGS: An AP, portable, upright chest radiograph is compared to chest x-ray and chest CT dated 01/21. The cardiomediastinal silhouette is top normal for projection. The right lung is clear. A lef t-sided chest tube has been placed. There is a small residual left pleural effusion with consolidatio n of the left lower lung. There is a small to moderate pneumothorax versus collapsing bleb in the lef t lower lung. The trachea is midline. No pneumothorax is seen on the right. The bony thorax is grossl y intact. IMPRESSION: 1. A left-sided chest tube has been placed. 2. There is a small residual left pleural effusion with consolidation in the left lower lung. The eff usion has decreased in size from today's earlier examinations. 3. Pneumothorax versus collapsing bleb in the left lung. ACT 112: Negative or not required by law. Electronically signed by: Avelino Griffin M.D. 01/30/2023 8:43 AM
--- NOTE | 2023-01-30 08:55 | Pulmonary Consultation ---
Date of Consultation January 30, 2023 Assessment & Plan (1) Hydropneumothorax: (2) Parapneumonic effusion: Plan Impression: 27-year-old male with prior history of asthma presenting with loculated likely parapneumonic effusion. Recommendations: 1. Parapneumonic effusion: Discussed with patient and mother at bedside. Recommended catheter drainage. They are agreeable. Will proceed with placement of 14 Persian pigtail catheter and collect pleural fluid for analysis. Given the extensive nature of the disease, consultation with thoracic surgery is recommended as the patient could potentially require VATS. Will initiate mist 2 protocol. Agree with empiric antibiotics in the form of Unasyn for now. Antibiotics will be dictated based on culture data and clinical response to therapy. Daily chest x-rays. 2. Asthma: Not bronchospastic currently. No indication for systemic steroids. Inhalers as needed. 3. Patient's remaining medical issues are deferred to the admitting service. Will follow with you. Feel free to contact us with questions or concerns History of Present Illness Attending Physician: Naresh Segovia MD History of Present Illness Asked by hospitalist to assist in evaluation management this patient with complicated pleural space. History is obtained from discussion with the patient as well as review the electronic medical record. Patient is a 27-year-old male who is followed several years ago by the pulmonary PA at [facility]. He carries a diagnosis of asthma. He states he has had issues for about 2 weeks with low-grade fevers and shortness of breath. He was apparently seen at the emergency room at [facility] as well as urgent care and diagnosed with asthma exacerbation. It is unclear if imaging was performed at that time. He was prescribed prednisone and given an inhaler. The patient does describe a few syncopal episodes a few weeks ago. He states he was evaluated in the emergency room as he passed out several times at a local store. It is unclear what evaluation was conducted but the patient reports that he was advised this was related to alcohol intoxication although he adamantly denies drinking. He was dismissed home without any follow-up or therapy. The patient felt poorly today and had nausea and vomiting. He is also had some intermittent abdominal pain. He does complain of some left-sided chest discomfort. He was seen in the emergency room and found to be septic with tachycardia and elevated white blood cell count. CT of the abdomen was performed which revealed a complicated pleural space on the lung windows. This was followed up with a dedicated CT of the chest which demonstrated septated pleural fluid with a large amount of pleural gas. He was initiated on antibiotics and the form of Unasyn and cultures were obtained. He has been admitted to the hospitalist service and pulmonary was consulted for additional evaluation management. The patient has not had pleural effusion or pleural issues previously. He does report about a 20 pound weight loss over the last 6 to 8 weeks. He had some chills and sweats but no overt fevers. Allergies Allergy/AdvReac Type Severity Reaction Status Date / Time medel Allergy Severe EOSINPHILS Verified 01/30/23 01:09 IN THROAT corn Allergy Severe EOSINOPHILS Verified 01/30/23 01:09 IN THROAT nitroglycerin Allergy Severe TROUBLE Verified 01/30/23 01:09 BREATHING oats Allergy Severe EOSINOPHILS Verified 09/27/21 14:39 IN THROAT peas Allergy Severe EOSINOPHILS Verified 01/30/23 01:09 IN THROAT pork derived (porcine) Allergy Severe EOSINOPHILS Verified 01/30/23 01:09 IN THROAT soy Allergy Severe ESINOPHILS Verified 01/30/23 01:09 IN THROAT Sulfa (Sulfonamide Allergy Intermediate EYES Verified 01/30/23 01:09 Antibiotics) SWELLING/WITH EYE DROPS sulfamethoxazole Allergy Intermediate EYES Verified 01/30/23 01:09 SWELLING trimethoprim Allergy Intermediate EYES Verified 01/30/23 01:09 SWELLING Bactrim Allergy Unknown UNK Verified 11/16/15 23:40 Home Medications Medication Instructions Recorded Confirmed Type albuterol sulfate 2.5 mg/3 mL 2.5 mg (3 mL) inhalation Q4H PRN 12/07/19 01/30/23 Rx (0.083 %) solution for nebulization shortness of breath or wheezing #180 mL albuterol sulfate 90 mcg/actuation 2 puffs inhalation QID PRN 12/07/19 01/30/23 Rx aerosol inhaler (Ventolin HFA) shortness of breath or wheezing #18 grams dupilumab 100 mg/0.67 mL 100 mg subcut Q14D 08/31/21 01/30/23 History subcutaneous syringe ([email or web address]) buspirone 10 mg tablet 10 mg PO TID 01/30/23 01/30/23 History cyclobenzaprine 10 mg tablet 10 mg PO TID PRN Spasms 01/30/23 01/30/23 History gabapentin 300 mg capsule 300 mg PO TID 01/30/23 01/30/23 History mirtazapine 15 mg disintegrating 15 mg translingual HS 01/30/23 01/30/23 History tablet naltrexone 50 mg tablet 50 mg PO DAILY 01/30/23 01/30/23 History ondansetron 4 mg disintegrating 4 mg translingual BID PRN Nausea 01/30/2304/14 History tablet prednisone 20 mg tablet 20 mg PO UD 01/30/23 01/30/23 History Patient History Medical History Anxiety and depression Asthma last exacerbation > 3 months ago, rescue inhaler use daily in the morning and HS Cervical radiculopathy Environmental and seasonal allergies Eosinophilic esophagitis GERD (gastroesophageal reflux disease) no current medications, controlled per pt History of atrial septal defect "spontaneous ASD closure on echo 12/1998" History of COVID-19 06/14/20-denies residual issues Hypertension controlled, stable per pt Post traumatic stress disorder denies concerns regarding upcoming surgery, OR room securing restraints/claustrophobia Pre-diabetes pt denies, states was on metformin and then d/c by PCP. Pre-op A1c 5.1% Sleep apnea not currently on treatment Tachycardia reports intermittent history, denies palpitations, dizziness, lightheadedness Temporomandibular joint disorder JAW CLICKING/has locked twice-last 3 yrs ago-unrelated to procedure per pt Surgical History Family history of reaction to anesthesia FATHER-WAKES UP IN MIDDLE OF PROCEDURE History of anesthesia reaction WAKES UP WITH ANESTHESIA-endoscopy History of appendectomy History of bronchoscopy MULTIPLE TIMES History of colonoscopy History of esophagogastroduodenoscopy (EGD) History of Katherine fundoplication 2009 AT [facility] Hx laparoscopic cholecystectomy 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 This limits the sensitivity of physical exam. Neck: trachea midline, no thyromegaly Respiratory: no respiratory distress, no labored breathing, no cough and not tachypneic Auscultation: + diminished lung sounds Left lung base Cardiovascular: Rate/Rhythm: regular rate and + tachycardic Heart Sounds: normal S1 and normal S2; no murmur Extremities: no edema Gastrointestinal (Abdomen): normal bowel sounds, soft, nontender, no hepatosplenomegaly Musculoskeletal: Extremities: extremities normal to inspection Skin: no rashes, warm and dry Multiple striae Neurologic: Nonfocal exam Lymphatic: no cervical lymphadenopathy Results & Data Results & Data Vital Signs (Past 12 Hours) Vital Signs Temp Pulse Pulse Resp BP BP Pulse Ox 01/30/23 07:00 105 H 18 122/83 95 01/30/23 07:03 105 H 01/30/23 05:00 105 H 15 96 01/30/23 04:00 94 01/30/23 03:00 93 01/30/23 02:00 112 H 15 93 01/30/23 01:59 126/93 01/30/23 01:59 111 H 18 93 01/30/23 01:00 109 H 20 95 01/30/23 00:30 101/72 01/30/23 00:30 118 H 13 01/30/23 00:25 118 H 11 L 01/30/23 00:25 96/79 L 01/30/23 00:00 116 H 16 01/30/23 00:00 80/54 L 01/29/23 23:30 119 H 10 L 01/29/23 23:30 117/76 01/29/23 23:00 124 H 17 01/29/23 23:00 122/78 01/29/23 22:34 121 H 22 01/29/23 22:33 124/92 01/30/23 03:12 01/30/23 04:21 108 H 20 95 01/30/23 02:34 113 H 01/30/23 02:00 112 H 20 126/93 92 01/29/23 23:30 121 H 20 117/76 96 01/29/23 22:36 123 H 01/29/23 22:35 121 H 20 124/92 98 01/29/23 21:30 36.7 C 131 H 16 145/90 H 94 Pulse Ox O2 Del Method O2 Del Method 01/30/23 07:00 Room Air 01/30/23 07:03 01/30/23 05:00 01/30/23 04:00 01/30/23 03:00 01/30/23 02:00 01/30/23 01:59 01/30/23 01:59 01/30/23 01:00 01/30/23 00:30 01/30/23 00:30 01/30/23 00:25 01/30/23 00:25 01/30/23 00:00 01/30/23 00:00 01/29/23 23:30 01/29/23 23:30 01/29/23 23:00 01/29/23 23:00 01/29/23 22:34 01/29/23 22:33 01/30/23 03:12 96 Room Air 01/30/23 04:21 Room Air 01/30/23 02:34 01/30/23 02:00 Room Air 01/29/23 23:30 Room Air 01/29/23 22:36 01/29/23 22:35 Room Air 01/29/23 21:30 Room Air Critical Care Results & Data Vital Signs (Past 12 Hours) Vital Signs Temp Pulse Pulse Resp BP BP Pulse Ox 01/30/23 07:00 105 H 18 122/83 95 01/30/23 07:03 105 H 01/30/23 05:00 105 H 15 96 01/30/23 04:00 94 01/30/23 03:00 93 01/30/23 02:00 112 H 15 93 01/30/23 01:59 126/93 01/30/23 01:59 111 H 18 93 01/30/23 01:00 109 H 20 95 01/30/23 00:30 101/72 01/30/23 00:30 118 H 13 01/30/23 00:25 118 H 11 L 01/30/23 00:25 96/79 L 01/30/23 00:00 116 H 16 01/30/23 00:00 80/54 L 01/29/23 23:30 119 H 10 L 01/29/23 23:30 117/76 01/29/23 23:00 124 H 17 01/29/23 23:00 122/78 01/29/23 22:34 121 H 22 01/29/23 22:33 124/92 01/30/23 03:12 01/30/23 04:21 108 H 20 95 01/30/23 02:34 113 H 01/30/23 02:00 112 H 20 126/93 92 01/29/23 23:30 121 H 20 117/76 96 01/29/23 22:36 123 H 01/29/23 22:35 121 H 20 124/92 98 01/29/23 21:30 36.7 C 131 H 16 145/90 H 94 Pulse Ox O2 Del Method O2 Del Method 01/30/23 07:00 Room Air 01/30/23 07:03 01/30/23 05:00 01/30/23 04:00 01/30/23 03:00 01/30/23 02:00 01/30/23 01:59 01/30/23 01:59 01/30/23 01:00 01/30/23 00:30 01/30/23 00:30 01/30/23 00:25 01/30/23 00:25 01/30/23 00:00 01/30/23 00:00 01/29/23 23:30 01/29/23 23:30 01/29/23 23:00 01/29/23 23:00 01/29/23 22:34 01/29/23 22:33 01/30/23 03:12 96 Room Air 01/30/23 04:21 Room Air 01/30/23 02:34 01/30/23 02:00 Room Air 01/29/23 23:30 Room Air 01/29/23 22:36 01/29/23 22:35 Room Air 01/29/23 21:30 Room Air Lab & Micro Results (Past 24 Hours) RBC 4.73 M/uL (4.70-6.10) 01/29/23 WBC 14.89 K/ul (4.8-10.8) H 01/29/23 Hgb 14.8 g/dl (14.0-18.0) 01/29/23 Hct 40.9 % (42.0-52.0) L 01/29/23 MCV 86.5 fL (80.0-100.0) 01/29/23 MCH 31.3 pg (25.0-34.0) 01/29/23 MCHC 36.2 g/dL (32.0-36.0) H 01/29/23 RDW Standard Deviation 40.0 fL (36.4-46.3) 01/29/23 RDW Coefficient of Variation 12.8 % (11.5-14.5) 01/29/23 Plt Count 280 K/uL (130-400) 01/29/23 MPV 11.3 fL (9.4-12.4) 01/29/23 Neutrophils (%) (Auto) 84.6 % 01/29/23 Lymphocytes (%) (Auto) 8.5 % 01/29/23 Monocytes # (Auto) 0.65 K/uL (0.11-0.59) H 01/29/23 Eosinophils # (Auto) 0.00 K/uL (0-0.50) 01/29/23 Immature Granulocyte % (Auto) 2.4 % 01/29/23 Neutrophils # (Auto) 12.60 K/uL (1.40-6.50) H 01/29/23 Lymphocytes # (Auto) 1.27 K/uL (1.2-3.4) 01/29/23 Monocytes # (Auto) 0.65 K/uL (0.11-0.59) H 01/29/23 Eosinophils # (Auto) 0.00 K/uL (0-0.50) 01/29/23 Basophils # (Auto) 0.02 K/uL (0-0.2) 01/29/23 Immature Granulocyte # (Auto) 0.35 K/uL (0.01-0.20) H 01/29 Na 129 mmol/L (136-145) L 01/29/23 K 3.0 mmol/L (3.5-5.1) L 01/29/23 Cl 90 mmol/L (98-107) L 01/29/23 CO2 27 mmol/L (21-32) 01/29/23 Anion Gap 12 (3-11) H 01/29/23 BUN 13 mg/dl (6-23) 01/29/23 Creatinine 1.01 mg/dl (0.6-1.4) 01/29/23 Estimated GFR ( Amer) 117.6 ml/min 01/29/23 Estimated GFR (Non-Af Amer) 101.5 ml/min 01/29/23 BUN/Creatinine Ratio 12.9 (10-20) 01/29/23 Glu 123 mg/dl (70-99(Fasting)) H 01/29/23 Ca 8.8 mg/dl (8.6-10.3) 01/29/23 Total Bilirubin 0.7 mg/dl (0.2-1.0) 01/29/23 AST 42 U/L (13-39) H 01/29/23 ALT 29 U/L (7-52) 01/29/23 Alkaline Phosphatase 59 U/L (34-104) 01/29/23 TP 7.5 gm/dl (6.0-8.3) 01/29/23 Albumin 3.5 gm/dl (3.4-5.0) 01/29/23 Globulin 4.0 gm/dl (2.5-4.0) 01/29/23 Albumin/Globulin Ratio 0.9 (0.9-2) 01/29/23 Mg 2.1 mg/dl (1.7-2.4) 01/29/23 22:00 Calcium Level 8.8 mg/dl (8.6-10.3) 01/29/23 22:00 Prothromb Time International Ratio 1.1 (0.9-1.1) 01/30/23 03:5 7 Diagnostic Findings (Past 24 Hours) Abdomen/Pelvis CT 01/29/23 23:22 Exam(s): CT ABDOMEN + PELVIS With Contrast IV Amt: 114 ML OPTIRAY 350 EXAM: CT Abdomen and Pelvis With Intravenous Contrast CLINICAL HISTORY: Reason for exam: n/v/d, abd pain. TECHNIQUE: Axial computed tomography images of the abdomen and pelvis with intravenous contrast. CTDI is 36 mGy and DLP is 2013.73 mGy-cm. Automated exposure control was utilized for the study. A dose lowering technique was utilized adhering to the principles of ALARA. CONTRAST: Patient received 114 ML OPTIRAY 350 of IV contrast COMPARISON: No relevant prior studies available. FINDINGS: Lung bases: Unremarkable. No mass. No consolidation. Pleural space: Large left pleural effusion which is partially loculated and contains large volume air. Correlate for empyema with possibility of gas-forming bacteria. Chest tube should be considered. ABDOMEN: Liver: Hepatic steatosis. Gallbladder and bile ducts: Cholecystectomy. No ductal dilation. Pancreas: Unremarkable. No mass. No ductal dilation. Spleen: Unremarkable. No splenomegaly. Adrenals: Unremarkable. No mass. Kidneys and ureters: Unremarkable. No solid mass. No hydronephrosis. Stomach and bowel: Unremarkable. No obstruction. No mucosal thickening. PELVIS: Appendix: No findings to suggest acute appendicitis. Bladder: Unremarkable. No mass. Reproductive: Unremarkable as visualized. ABDOMEN and PELVIS: Intraperitoneal space: Unremarkable. No free air. No significant fluid collection. Bones/joints: No acute fracture. No dislocation. Soft tissues: Fat-containing umbilical hernia measures 4.4 x 3.7 cm. Vasculature: Unremarkable. No abdominal aortic aneurysm. Lymph nodes: Unremarkable. No enlarged lymph nodes. IMPRESSION: 1. Large left pleural effusion which is partially loculated and contains large volume air. Correlate for empyema with possibility of gas-forming bacteria. Chest tube should be considered. 2. Hepatic steatosis. 3. Cholecystectomy. 4. Fat-containing umbilical hernia measures 4.4 x 3.7 cm. Electronically signed by: Edis Noyola MD 01/30/23 01:05 AM Chest X-Ray 01/30/23 01:31 XR chest 1V portable CLINICAL HISTORY: pleural effusion TECHNIQUE: Single frontal radiograph of the chest was obtained. Comparison: Comparison is made to chest radiograph 09/07/2021 FINDINGS: No lines and tubes are seen. Cardiomegaly is noted. Loculated hydropneumothorax is seen in the left pleura. IMPRESSION: Loculated hydropneumothorax is in the left hemithorax. ACT 112: Negative or not required by law. Electronically signed by: Froilan Galvan M.D. 01/30/2023 7:[address] 01/30/23 03:00 Exam(s): CT CHEST Without Contrast EXAM: CT Chest Without Intravenous Contrast CLINICAL HISTORY: Reason for exam: empyema. TECHNIQUE: Axial computed tomography images of the chest without intravenous contrast. CTDI is Automated exposure control was utilized for the study. A dose lowering technique was utilized adhering to the principles of ALARA. COMPARISON: CT chest August 05, 2018. FINDINGS: Lungs: Unremarkable. No mass. No consolidation. Pleural space: Large left pleural effusion which is partially loculated and contains large volume air. Correlate for empyema with possibility of gas-forming bacteria. Chest tube should be considered. No right infiltrate or pneumothorax. Heart: Mild soft tissue density overlying the pericardium measuring approximately 6 x 1 x 1.4 cm, which is indeterminate (series 400 image 27). This is new when compared to August 05, 2018. Correlate with cardiac echocardiogram. No significant coronary artery calcifications. Normal heart size. Bones/joints: Unremarkable. No acute fracture. No dislocation. Soft tissues: Unremarkable. Vasculature: Unremarkable. No thoracic aortic aneurysm. Lymph nodes: Unremarkable. No enlarged lymph nodes. Liver: Severe hepatic steatosis. Other findings: 28.14 mGy and DLP is 1040.36 mGy-cm. IMPRESSION: 1. Large left pleural effusion which is partially loculated and contains large volume air. Correlate for empyema with possibility of gas-forming bacteria. Chest tube should be considered. 2. Mild soft tissue density overlying the pericardium measuring approximately 6 x 1 x 1.4 cm, which is indeterminate (series 400 image 27). This is new when compared to August 05, 2018. Correlate with cardiac echocardiogram. Electronically signed by: Edis Noyola MD 01/30/23 04:19 AM Chest X-Ray 01/30/23 08:19 SINGLE VIEW CHEST CLINICAL HISTORY: Status post thoracentesis. Chest tube placement. FINDINGS: An AP, portable, upright chest radiograph is compared to chest x-ray and chest CT dated 01/30/2023. The cardiomediastinal silhouette is top normal for projection. The right lung is clear. A left-sided chest tube has been placed. There is a small residual left pleural effusion with consolidation of the left lower lung. There is a small to moderate pneumothorax versus collapsing bleb in the left lower lung. The trachea is midline. No pneumothorax is seen on the right. The bony thorax is grossly intact. IMPRESSION: 1. A left-sided chest tube has been placed. 2. There is a small residual left pleural effusion with consolidation in the left lower lung. The effusion has decreased in size from today's earlier examinations. 3. Pneumothorax versus collapsing bleb in the left lung. ACT 112: Negative or not required by law. Electronically signed by: Avelino Griffin M.D. 01/30/2023 8:43 AM I & O Totals 24 Hours 01/29/23 01/30/23 01/31/23 06:59 06:59 06:59 Intake Total 1879.667 / 1879.667 98.333 / 98.333 Balance 1879.667 / 1879.667 98.333 / 98.333 Cumulative 01/29/23 21:25 thru 01/30/23 07:05 Intake Total 1977.000 Balance 1977.000 RT Ventilator Mngmt (Last Documented) Ventilator Ordered Settings Respiratory Rate 18 01/30/23 07:00 Ventilator - PT Measurements Respiratory Rate 18 PG Care Time/CCT Total # of Minutes Spent Total Time Spent with Patient: Total time spent is greater than 50% in coordination of care (as documented) at patient's floor/unit and/or counseling patient: Coding Level of Care Code 70190 IN/OBS CONSULT LVL 5,80M Diagnoses Hydropneumothorax J94.8 Parapneumonic effusion J18.9; J91.8
[2023-01-30] MEDS ORDERED: NALTREXONE HCL 50 MG TAB PO SCH (09:00)
--- NOTE | 2023-01-30 09:00 | Procedure Note ---
Procedure Note Date of Service January 30, 2023 Note Procedure: 14 Welsh pigtail catheter placement, left Indication: Loculated hydropneumothorax, likely parapneumonic Consent risk and benefits were discussed with the patient. He agreed. Written consent was verified prior to commencement of the procedure. Purification Supervisor Dr. Rae Estimated blood loss: Less than 5 mL Anesthesia: 10 mL 1% lidocaine without epinephrine locally. Procedure: Patient was placed in the left side up decubitus position. Landmarks were difficult to identify due to the patient's body habitus. Limited thoracic ultrasound was performed. The kidney and diaphragm were easily visualized. The loculated pleural fluid collection was also identified. A area in the posterior axillary line was marked. Skin was prepped and draped in normal sterile fashion. Skin and subcutaneous tissues were anesthetized with lidocaine. The muscle and deeper soft tissues were anesthetized using a finder needle. A small skin isabella was made with a scalpel. An 18-gauge needle was then advanced on a similar line until I was able to aspirate turbid yellow to brown fluid. The syringe was withdrawn leaving the needle in place. A wire was passed through the needle and then the needle was withdrawn leaving the wire in the pleural space. A 14 Welsh dilator was then passed over the wire to dilate the skin and soft tissues. This passed with ease. The dilator was removed leaving the wire in place. A 14 Welsh pigtail catheter was then loaded on a straightening catheter and advanced over the wire into the pleural space. The straightening catheter and wire were removed leaving the pigtail catheter in place. A three- way stopcock was attached. A total of 240 mL were collected for analysis through the stopcock and the tube was attached to suction with an additional 400 cc of turbid yellow fluid removed. No air leak was identified. The skater catheter fixation system was attached to the chest wall and the catheter secured. 2-0 silk sutures were used to suture the catheter to the skin. Catheter was attached to suction at 20 cm of water. Post procedure chest x-ray demonstrated decrease in the size of the pleural effusion with the catheter in good position. The patient tolerated the procedure well. Will initiate mist 2 protocol and follow-up with daily chest x-rays. Additional recommendations will be based on characterization of pleural fluid Coding CPT Codes Pulmonary/Thoracic - Pulmonary and Thoracic: 26754 Pleural drainage w/imaging ([id number]) Pulmonary/Thoracic - Pulmonary and Thoracic: 30746 Lyse chest fibrin initial day ([id number]) [facility] [place] Procedure Codes (Charges) Pulmonary/Thoracic Procedure 1: Pulmonary and Thoracic: 52731 Pleural drainage w/imaging Procedure 2: Pulmonary and Thoracic: 07554 Lyse chest fibrin initial day
[2023-01-30 09:04] LABS: Appearance Urine Clear (Clear); Bacteria Urine Automated Negative (Negative); Bilirubin Urine Negative (Negative); Blood Urine Negative (Negative); Cast Urine Automated 0 /lpf (0-5); Color Urine Yellow; Epithelial Cell Urine Auto 20-30 /lpf (0-5); Glucose Urine UA Negative (Negative); Ketones Urine Negative (Negative); Leukocyte Esterase Urine Negative (Negative); Nitrite Urine Negative (Negative); Protein Urine Trace (Negative); RBC Urine Automated 0-4 /hpf (0-4); Specific Gravity Urine > 1.045 (1.000-1.030); Urobilinogen Urine Negative (Negative); pH Urine 6.5 (4.5-7.5)
[2023-01-30 09:23] LABS: Estimated Average Glucose 114 mg/dl; Hemoglobin A1C 5.6 % (4.5-5.6)
[2023-01-30] MEDS: FOLIC ACID 1 MG TAB PO SCH (09:33)
[2023-01-30] MEDS: busPIRone 5 MG TAB PO SCH ×3 (09:33→21:46)
[2023-01-30] MEDS: GABAPENTIN 300 MG CAP PO SCH ×3 (09:33→21:46)
[2023-01-30] MEDS: MULTIVITAMIN TAB PO SCH (09:33)
[2023-01-30] MEDS: ENOXAPARIN INJ 40 MG/0.4 ML SYR SQ SCH (09:34)
[2023-01-30 09:47] LABS: Basophils # (auto) 0.01 K/uL (0-0.2); Basophils % (auto) 0.2 %; Eosinophils # (auto) 0.02 K/uL (0-0.50); Eosinophils % (auto) 0.3 %; Hematocrit (blood only) 37.3 % (42.0-52.0); Hemoglobin 12.9 g/dl (14.0-18.0); Immature Granulocytes # (auto) 0.05 K/uL (0.01-0.20); Immature Granulocytes % (auto) 0.8 %; Lymphocytes # (auto) 1.17 K/uL (1.2-3.4); Lymphocytes % (auto) 18.6 %; Mean Corpuscular Hemoglobin 30.9 pg (25.0-34.0); Mean Corpuscular Hgb Conc 34.6 g/dL (32.0-36.0); Mean Corpuscular Volume 89.2 fL (80.0-100.0); Mean Platelet Volume 11.4 fL (9.4-12.4); Monocytes % (auto) 6.4 %; Neutrophils # (auto) 4.64 K/uL (1.40-6.50); Neutrophils % (auto) 73.7 %; Platelet Count 214 K/uL (130-400); RDW Coefficient of Variation 13.3 % (11.5-14.5); RDW Standard Deviation 43.6 fL (36.4-46.3); Red Blood Count 4.18 M/uL (4.70-6.10); White Blood Count 6.29 K/ul (4.8-10.8)
[2023-01-30] MEDS: MoRPHine SULFATE 4 MG/ML 1 ML CARP\\VIAL IV PRN ×4 (09:55→23:50)
[2023-01-30 10:00] LABS: BUN Creatinine Ratio 12.1 (10-20); Calcium 7.9 mg/dl (8.6-10.3); Creatinine Clr Calc Pharmacy 176.9 ml/min; Est GFR (African American) 133.4 ml/min; Est GFR (Non-African American) 115.1 ml/min; Potassium 3.1 mmol/L (3.5-5.1)
[2023-01-30 10:03] LABS: Total Protein Pleural Fluid 4.9 gm/dl
[2023-01-30] MEDS: ALTEPLASE, RECOMBINANT 10 MG in SYRINGE 50 ML IPL SCH ×2 (10:18→22:17)
[2023-01-30] MEDS: AMPICILLIN/SULBACTAM SOD 3,000 MG in 0.9 % SODIUM CHLORIDE 100 ML IV SCH ×3 (10:26→21:45)
[2023-01-30 10:55] LABS: Appearance Pleural Fluid Cloudy; Color Pleural Fluid Amber; Lymphocytes, Fluid 2 %; Mono,Macrophage,Mesothelial 11 %; Neutrophils, Fluid 87 %; RBC Pleural Fluid Auto 15000 /uL; Source Pleural Fluid Left Lung; WBC Pleural Fluid Auto 4770 /uL
--- NOTE | 2023-01-30 11:08 | Electrocardiogram Report ---
Test Reason : Blood Pressure : / mmHG Vent. Rate : 124 BPM Atrial Rate : 124 BPM P-R Int : 156 ms QRS Dur : 102 ms QT Int : 310 ms P-R-T Axes : 042 030 018 degrees QTc Int : 445 ms Sinus tachycardia Otherwise normal ECG When compared with ECG of 07-SEP-2021 11:48, Nonspecific T wave abnormality now evident in Inferior leads T wave amplitude has decreased in Anterior leads Confirmed by Rei Vernon ([id number]) on 01/30/2023 11:08:08 AM Referred By: REFERRED SELF Confirmed By:Darin Vernon
[2023-01-30] MEDS: DORNASE ALFA 5 ML in SYRINGE 25 ML IPL SCH ×2 (11:35→23:38)
[2023-01-30] MEDS: ACETAMINOPHEN 1,000 MG/100 ML VIAL IV SCH ×2 (15:42→21:52)
[2023-01-30] MEDS: LEVALBUTEROL 1.25 MG/3 ML NEB NEB PRN (20:00)
[2023-01-30] MEDS: MIRTAZAPINE SOLTAB 15 MG PO SCH (21:46)
[2023-01-31] MEDS: oxyCODONE HCL IR 5 MG TAB (IMMEDIATE RELEASE) PO PRN ×5 (02:06→21:26)
[2023-01-31] MEDS: MoRPHine SULFATE 4 MG/ML 1 ML CARP\\VIAL IV PRN ×4 (03:52→19:32)
[2023-01-31] MEDS: AMPICILLIN/SULBACTAM SOD 3,000 MG in 0.9 % SODIUM CHLORIDE 100 ML IV SCH ×4 (03:59→21:26)
[2023-01-31] MEDS: ACETAMINOPHEN 1,000 MG/100 ML VIAL IV SCH ×3 (05:41→22:33)
--- NOTE | 2023-01-31 07:47 | Pulmonology Progress Note ---
Date of Service January 31, 2023 Assessment & Plan (1) Hydropneumothorax: (2) Parapneumonic effusion: Plan Impression: 27-year-old male with prior history of asthma presenting with l oculated parapneumonic effusion with significant pleural gas. He is status post placement of a 14 Macedonian pigtail catheter with significant improvement in his chest x-ray. He is having some postprocedural pain. Recommendations: 1. Parapneumonic effusion: Continue mist 2 protocol. Will keep drain in place until output decreases below 200 cc/day and chest x-ray improved. Will follow- up on cytology and final culture data. Currently on Unasyn. Can likely transition to Augmentin at discharge but will await culture data. Will need 2 weeks of antimicrobial therapy. Continue pain control. Will add Toradol to his regiment to see if this offers him some clinical relief 2. Asthma: Not bronchospastic currently. No indication for systemic steroids. Inhalers as needed. 3. Patient's remaining medical issues are deferred to the admitting service. Will follow with you. Feel free to contact us with questions or concerns Admission and Anticipated Discharge Date Admission Date: January 30, 2023 Subjective Patient seen and examined. EMR reviewed. The patient is complaining of some pain. It seems to be reasonably well- controlled with morphine as well as OxyContin. He has had 2-1/2 L of output from the chest tube. He is not having any breathing issues. He denies any wheezing or coughing. No fevers chills or night sweats overnight. He remains tachycardic. Review of Systems Review of Systems: All systems reviewed & are unremarkable except as noted in Subjective Physical Exam Constitutional: WD/WN, vitals as above Neck: trachea midline, no thyromegaly Respiratory: no respiratory distress, no labored breathing, no cough and not tachypneic Auscultation: + diminished lung sounds Cardiovascular: Rate/Rhythm: regular rate and + tachycardic Heart Sounds: normal S1 and normal S2; no murmur Extremities: no edema Gastrointestinal (Abdomen): normal bowel sounds, soft, nontender, no hepatosplenomegaly Musculoskeletal: Extremities: extremities normal to inspection Skin: no rashes, warm and dry Lymphatic: no cervical lymphadenopathy Results & Data Results & Data Vital Signs (Past 12 Hours) Vital Signs Temp Pulse Pulse Pulse Resp BP BP 01/31/23 07:26 36.6 C 120 H 18 122/84 01/31/23 06:19 37.1 C 119 H 16 136/81 01/31/23 05:01 37.5 C 113 H 24 159/95 H 01/30/23 21:58 112 H 01/30/23 22:34 37.2 C 110 H 20 148/96 H 01/30/23 20:03 105 H 18 Pulse Ox O2 Del Method 01/31/23 07:26 93 Room Air 01/31/23 06:19 93 Room Air 01/31/23 05:01 90 Room Air 01/30/23 21:58 01/30/23 22:34 94 Room Air 01/30/23 20:03 94 Room Air Laboratory Results 01/30/23 09:18 01/30/23 09:18 Pleural fluid studies: Differential: 87% neutrophils, 2% lymphocytes, 11% mesothelial cells Culture pending, Gram stain with many white blood cells no organisms LDH 905 Glucose 67 Total protein 4.9 Cytology pending PG Care Time/CCT Total # of Minutes Spent Total Time Spent with Patient: Total time spent is greater than 50% in coordination of care (as documented) at patient's floor/unit and/or counseling patient: Coding Level of Care Code 64457 SUB INP/OBS CARE 235MIN Diagnoses Hydropneumothorax J94.8 Parapneumonic effusion J18.9; J91.8
--- NOTE | 2023-01-31 07:56 | XRay Report ---
XR chest 1V portable HISTORY: Follow-up pneumothorax. Chest tube ? MIST 2 protocol COMPARISON: Chest 01/30/2023. FINDINGS: A left basilar chest tube is unchanged in position. Decrease in size in the small left hydr opneumothorax. Left basilar densities have improved. The right lung is clear. The heart remains mildl y enlarged. IMPRESSION: 1. Decrease in size in the small left hydropneumothorax. 2. A left basilar chest tube is unchanged in position. ACT 112: Negative or not required by law. Electronically signed by: Levi Nascimento M.D. 01/31/2023 7:54 AM
[2023-01-31] MEDS: KETOROLAC 30 MG/ML VIAL IV PRN ×2 (09:01→17:05)
[2023-01-31] MEDS: MULTIVITAMIN TAB PO SCH (09:07)
[2023-01-31] MEDS: ENOXAPARIN INJ 40 MG/0.4 ML SYR SQ SCH (09:07)
[2023-01-31] MEDS: THIAMINE HCL 100 MG TAB PO SCH (09:07)
[2023-01-31] MEDS: FOLIC ACID 1 MG TAB PO SCH (09:07)
[2023-01-31] MEDS: GABAPENTIN 300 MG CAP PO SCH ×3 (09:08→21:04)
[2023-01-31] MEDS: busPIRone 5 MG TAB PO SCH ×3 (09:08→21:02)
[2023-01-31] MEDS: ALTEPLASE, RECOMBINANT 10 MG in SYRINGE 50 ML IPL SCH ×2 (09:29→21:06)
[2023-01-31 10:17] LABS: Calcium 8.2 mg/dl (8.6-10.3); Creatinine Clr Calc Pharmacy 181.5 ml/min; Est GFR (African American) 136.4 ml/min; Est GFR (Non-African American) 117.7 ml/min; Potassium 3.4 mmol/L (3.5-5.1)
[2023-01-31] MEDS: DORNASE ALFA 5 ML in SYRINGE 25 ML IPL SCH ×2 (10:34→22:31)
[2023-01-31] MEDS: SODIUM CHLORIDE 0.9% 1000ML 1,000 ML IV SCH ×2 (11:27→17:45)
[2023-01-31] MEDS: ACETAMINOPHEN 500 MG TAB PO PRN (11:27)
[2023-01-31] MEDS: POLYETHYLENE (MIRALAX) 17 GM PACK PO PRN (13:34)
--- NOTE | 2023-01-31 16:02 | Hospitalist Progress Note ---
Date of Service January 31, 2023 Assessment & Plan (1) Sepsis: Plan: SECONDARY TO LEFT-SIDED EMPYEMA Status post pigtail catheter insertion, left lung January 30, 2023 Blood cultures: Negative so far Pleural fluid culture: Pending Continue IV Unasyn day #2 Pigtail catheter management per pulmonary service HYPOKALEMIA Potassium 3.4 Replaced HTN BP stable hx ASD bronchial asthma, not in acute exacerbation hx eosinophilic esophagitis/GERD prediabetes, hemoglobin A1c of 5.1 last year anxiety/mood disorder, at baseline DVT prophylaxis. Lovenox subcu Full code plan of care discussed with patient in detail and at length all questions answered He is understanding, agreeable, comfortable with the plan of care Admission and Anticipated Discharge Date Admission Date: January 30, 2023 Subjective Follow-up for empyema, etc. Seen resting in bed, not in distress States left-sided pain still significant but seems to be improved compared to yesterday Breathing is also improving No fevers or chills, cough, sputum production No other new symptom Review of Systems Review of Systems: all noted and negative except for above Physical Exam Physical Exam: General- oriented x 3, not in distress, speaks in sentences with no effort or accessory muscle use Eyes- anicteric Neck- no JVD Lungs- mild rhonchi at the left base, pigtail catheter in place, draining serosanguineous fluid Clear on the right Heart- normal rate, regular rhythm; no murmurs Abdomen- normal bowel sounds, nondistended, soft, nontender Extremities- no pretibial edema, no calf tenderness Neuro- alert, oriented x 3; no gross focal neurologic deficits Skin- warm & dry Results & Data Results & Data Vital Signs (Past 12 Hours) Vital Signs Temp Pulse Pulse Resp BP BP Pulse Ox 01/31/23 15:10 36.7 C 103 H 20 113/78 95 01/31/23 07:30 01/31/23 11:28 36.6 C 107 H 20 124/84 93 01/31/23 07:26 36.6 C 120 H 18 122/84 93 01/31/23 06:19 37.1 C 119 H 16 136/81 93 01/31/23 05:01 37.5 C 113 H 24 159/95 H 90 O2 Del Method 01/31/23 15:10 Room Air 01/31/23 07:30 Room Air 01/31/23 11:28 Room Air 01/31/23 07:26 Room Air 01/31/23 06:19 Room Air 01/31/23 05:01 Room Air all noted and reviewed including below
[2023-01-31] MEDS: LEVALBUTEROL 1.25 MG/3 ML NEB NEB PRN (17:19)
[2023-01-31] MEDS: PROMETHAZINE HCL 12.5 MG in SODIUM CHLORIDE 0.9% 50 ML IV PRN (17:44)
[2023-01-31] MEDS ORDERED: POTASSIUM CHLORIDE CRTAB 20 MEQ TABCR PO STA (18:37)
--- NOTE | 2023-01-31 19:20 | XRay Report ---
XR chest 1V portable CLINICAL HISTORY: shortness of breath, ff up L empyema TECHNIQUE: Single frontal radiograph of the chest was obtained. Comparison: Comparison is made to chest radiograph dated 1122 FINDINGS: Exam is limited by underpenetration. There is a left chest tube. The cardiomediastinal silhouette is normal. Lungs are underinflated but clear. Small left hydropneumothorax is seen, comparable in size t o prior exam. IMPRESSION: Stable small left hydropneumothorax compatible with history of empyema. ACT 112: Negative or not required by law. Electronically signed by: Froilan Galvan M.D. 01/31/2023 7:19 PM
[2023-01-31] MEDS: MIRTAZAPINE SOLTAB 15 MG PO SCH (21:02)
[2023-02-01] MEDS: KETOROLAC 30 MG/ML VIAL IV PRN ×2 (00:10→12:48)
[2023-02-01] MEDS: SODIUM CHLORIDE 0.9% 1000ML 1,000 ML IV SCH ×3 (03:09→19:52)
[2023-02-01] MEDS: AMPICILLIN/SULBACTAM SOD 3,000 MG in 0.9 % SODIUM CHLORIDE 100 ML IV SCH ×4 (03:16→21:39)
[2023-02-01] MEDS: MoRPHine SULFATE 4 MG/ML 1 ML CARP\\VIAL IV PRN ×4 (03:16→22:49)
[2023-02-01] MEDS: ACETAMINOPHEN 1,000 MG/100 ML VIAL IV SCH ×3 (06:11→22:49)
[2023-02-01] MEDS: ACETAMINOPHEN 500 MG TAB PO PRN (06:21)
[2023-02-01] MEDS: POLYETHYLENE (MIRALAX) 17 GM PACK PO PRN (06:22)
[2023-02-01] MEDS: oxyCODONE HCL IR 5 MG TAB (IMMEDIATE RELEASE) PO PRN ×3 (06:22→21:30)
[2023-02-01 06:33] LABS: Basophils # (auto) 0.03 K/uL (0-0.2); Basophils % (auto) 0.3 %; Eosinophils # (auto) 0.16 K/uL (0-0.50); Eosinophils % (auto) 1.7 %; Hematocrit (blood only) 44.3 % (42.0-52.0); Hemoglobin 14.6 g/dl (14.0-18.0); Immature Granulocytes # (auto) 0.15 K/uL (0.01-0.20); Immature Granulocytes % (auto) 1.6 %; Lymphocytes # (auto) 1.22 K/uL (1.2-3.4); Lymphocytes % (auto) 12.8 %; Mean Corpuscular Hemoglobin 30.6 pg (25.0-34.0); Mean Corpuscular Volume 92.9 fL (80.0-100.0); Mean Platelet Volume 11.3 fL (9.4-12.4); Monocytes # (auto) 0.61 K/uL (0.11-0.59); Monocytes % (auto) 6.4 %; Neutrophils # (auto) 7.39 K/uL (1.40-6.50); Neutrophils % (auto) 77.2 %; Platelet Count 260 K/uL (130-400); RDW Coefficient of Variation 13.6 % (11.5-14.5); RDW Standard Deviation 46.4 fL (36.4-46.3); Red Blood Count 4.77 M/uL (4.70-6.10); White Blood Count 9.56 K/ul (4.8-10.8)
[2023-02-01] MEDS: DOCUSATE SODIUM/SENNA 50/8.6MG TAB PO SCH (06:45)
[2023-02-01] MEDS: LEVALBUTEROL 1.25 MG/3 ML NEB NEB PRN ×5 (06:56→23:08)
[2023-02-01 07:02] LABS: BUN Creatinine Ratio 10.1 (10-20); Calcium 8.1 mg/dl (8.6-10.3); Creatinine Clr Calc Pharmacy 201.4 ml/min; Est GFR (African American) 142.6 ml/min; Est GFR (Non-African American) 123.1 ml/min; Potassium 3.4 mmol/L (3.5-5.1)
--- NOTE | 2023-02-01 08:42 | XRay Report ---
XR chest 1V portable HISTORY: Chest tube ? MIST 2 protocol COMPARISON: Chest 01/31/2023. FINDINGS: A left basilar chest tube is unchanged in position. A small left hydropneumothorax persists . Left basilar linear densities remain unchanged. The right lung is clear. The heart remains mildly e nlarged. There are low lung volumes. IMPRESSION: Left basilar chest tube is unchanged in position. A small left hydropneumothorax persists. ACT 112: Negative or not required by law. Electronically signed by: Levi Nascimento M.D. 02/01/2023 8:39 AM
--- NOTE | 2023-02-01 09:48 | Pulmonology Progress Note ---
Date of Service February 01, 2023 Assessment & Plan (1) Hydropneumothorax: (2) Parapneumonic effusion: Plan Impression: 27-year-old male with prior history of asthma presenting with l oculated parapneumonic effusion with significant pleural gas. He is status post placement of a 14 Dutch pigtail catheter with significant improvement in his chest x-ray. He is having some postprocedural pain. Recommendations: 1. Parapneumonic effusion: Continue mist 2 protocol. Will keep drain in place until output decreases below 200 cc/day and chest x-ray improved. Continue Unasyn. Continue Toradol for pain management. Cultures no growth to date and cytology unrevealing.. Will likely need 2 weeks of antimicrobial therapy 2. Asthma: Not bronchospastic currently. No indication for systemic steroids. Inhalers as needed. 3. Patient's remaining medical issues are deferred to the admitting service. Will follow with you. Feel free to contact us with questions or concerns Admission and Anticipated Discharge Date Admission Date: January 30, 2023 Subjective Patient reports some continued pain issues but overall breathing pain is better. He is not having any fevers chills or night sweats. He remains intermittently tachycardic. Review of Systems Review of Systems: All systems reviewed & are unremarkable except as noted in Subjective Physical Exam Constitutional: WD/WN, vitals as above Neck: trachea midline, no thyromegaly Respiratory: no respiratory distress, no labored breathing, no cough and not tachypneic Auscultation: + diminished lung sounds Cardiovascular: Rate/Rhythm: regular rate and + tachycardic Heart Sounds: n ormal S1 and normal S2; no murmur Extremities: no edema Gastrointestinal (Abdomen): normal bowel sounds, soft, nontender, no hepatosplenomegaly Musculoskeletal: Extremities: extremities normal to inspection Skin: no rashes, warm and dry Lymphatic: no cervical lymphadenopathy Results & Data Results & Data Vital Signs (Past 12 Hours) Vital Signs Temp Pulse Pulse Resp BP Pulse Ox O2 Del Method 02/01/23 07:15 36.9 C 122 H 18 119/80 96 Room Air 02/01/23 06:56 115 H 19 98 Room Air 02/01/23 00:00 103 H 02/01/23 03:09 36.9 C 116 H 22 130/85 96 Room Air 01/31/23 23:12 36.5 C 105 H 20 137/81 96 Room Air Chest tube output: 650 mL Laboratory Results 02/01/23 06:16 02/01/23 06:16 Microbiology 01/30/23 02:20 Blood Aerobic Blood Culture - Preliminary No growth in Aerobic bottle after 48 hours. 01/30/23 02:20 Blood Anaerobic Blood Culture - Preliminary No growth in Anaerobic bottle after 48 hours. 01/30/23 02:27 Blood Aerobic Blood Culture - Preliminary No growth in Aerobic bottle after 48 hours. 01/30/23 02:27 Blood Anaerobic Blood Culture - Preliminary No growth in Anaerobic bottle after 48 hours. 01/30/23 08:25 Pleural Fluid,Left Gram Stain - Final 01/30/23 08:25 Pleural Fluid,Left Aerobic and Anaerobic Culture - Preliminary No growth to date. 01/30/23 08:25 Pleural Fluid,Left Acid Fast Bacilli Smear - Final Diagnostic Findings Chest x-ray from today was reviewed. There does appear to be layering fluid of the lateral aspect of the left chest wall. The tube still appears to be in good position. No air leak PG Care Time/CCT Total # of Minutes Spent Total Time Spent with Patient: Total time spent is greater than 50% in coordination of care (as documented) at patient's floor/unit and/or counseling patient: Coding Level of Care Code 54372 SUB INP/OBS CARE 2/35MIN Diagnoses Hydropneumothorax J94.8 Parapneumonic effusion J18.9; J91.8
[2023-02-01] MEDS: FOLIC ACID 1 MG TAB PO SCH (10:13)
[2023-02-01] MEDS: THIAMINE HCL 100 MG TAB PO SCH (10:14)
[2023-02-01] MEDS: GABAPENTIN 300 MG CAP PO SCH ×3 (10:14→21:30)
[2023-02-01] MEDS: MULTIVITAMIN TAB PO SCH (10:14)
[2023-02-01] MEDS: busPIRone 5 MG TAB PO SCH ×3 (10:14→21:30)
[2023-02-01] MEDS: ENOXAPARIN INJ 40 MG/0.4 ML SYR SQ SCH (10:15)
[2023-02-01] MEDS: ALTEPLASE, RECOMBINANT 10 MG in SYRINGE 50 ML IPL SCH ×2 (10:16→21:19)
[2023-02-01] MEDS: DORNASE ALFA 5 ML in SYRINGE 25 ML IPL SCH ×2 (11:42→22:40)
--- NOTE | 2023-02-01 16:06 | Hospitalist Progress Note ---
Date of Service February 01, 2023 Assessment & Plan (1) Sepsis: Plan: SECONDARY TO LEFT-SIDED EMPYEMA Status post pigtail catheter insertion, left lung January 30, 2023 Blood cultures: Negative x2 days Pleural fluid culture: No growth to date Check H&H this afternoon Continue IV Unasyn day #3 Pigtail catheter management per pulmonary service Pain control, hold Toradol HYPOKALEMIA Potassium 3.4 Replace HTN BP stable hx ASD bronchial asthma, not in acute exacerbation hx eosinophilic esophagitis/GERD prediabetes, hemoglobin A1c of 5.1 last year anxiety/mood disorder, at baseline DVT prophylaxis. Lovenox subcu Full code plan of care discussed with patient in detail and at length all questions answered He is understanding, agreeable, comfortable with the plan of care Admission and Anticipated Discharge Date Admission Date: January 30, 2023 Subjective ff up for empyema, etc Seen resting in bed, not in distress States he still has significant left chest wall pain, Has some shortness of breath Denies other new symptom Review of Systems Review of Systems: all noted and negative except for above Physical Exam Physical Exam: General- oriented x 3, not in distress, speaks in sentences with no effort or accessory muscle use Eyes- anicteric Neck- no JVD Lungs- clear breath sounds bilaterally, no rales/wheezes Pigtail catheter left lung in place: Draining blood-tinged fluid Heart- normal rate, regular rhythm; no murmurs Abdomen- normal bowel sounds, nondistended, soft, nontender Extremities- no pretibial edema, no calf tenderness Neuro- alert, oriented x 3; no gross focal neurologic deficits Skin- warm & dry Results & Data Results & Data Vital Signs (Past 12 Hours) Vital Signs Temp Pulse Resp BP Pulse Ox O2 Del Method FiO2 02/01/23 07:15 Room Air 02/01/23 14:18 119 H 15 96 Room Air 21 02/01/23 11:34 111 H 16 99 Room Air 21 02/01/23 11:02 36.7 C 106 H 20 136/82 96 Room Air 02/01/23 07:15 36.9 C 122 H 18 119/80 96 Room Air 02/01/23 06:56 115 H 19 98 Room Air all noted and reviewed including below
[2023-02-01] MEDS ORDERED: POTASSIUM CHLORIDE CRTAB 20 MEQ TABCR PO STA (16:08)
[2023-02-01 16:36] LABS: Hematocrit (blood only) 42.4 % (42.0-52.0); Hemoglobin 14.4 g/dl (14.0-18.0)
[2023-02-01] MEDS: PROMETHAZINE HCL 12.5 MG in SODIUM CHLORIDE 0.9% 50 ML IV PRN (16:52)
[2023-02-01] MEDS: MIRTAZAPINE SOLTAB 15 MG PO SCH (21:29)
[2023-02-02] MEDS: oxyCODONE HCL IR 5 MG TAB (IMMEDIATE RELEASE) PO PRN ×4 (02:15→18:47)
[2023-02-02] MEDS: AMPICILLIN/SULBACTAM SOD 3,000 MG in 0.9 % SODIUM CHLORIDE 100 ML IV SCH ×4 (04:06→22:11)
[2023-02-02] MEDS: MoRPHine SULFATE 4 MG/ML 1 ML CARP\\VIAL IV PRN ×4 (05:27→20:50)
[2023-02-02] MEDS: PROMETHAZINE HCL 12.5 MG in SODIUM CHLORIDE 0.9% 50 ML IV PRN (05:27)
[2023-02-02] MEDS: LEVALBUTEROL 1.25 MG/3 ML NEB NEB PRN ×3 (05:36→13:22)
[2023-02-02] MEDS: ACETAMINOPHEN 1,000 MG/100 ML VIAL IV SCH (06:21)
[2023-02-02] MEDS ORDERED: MAGNESIUM HYDROXIDE SUSP 30 ML UDC PO PRN (07:31)
[2023-02-02 08:22] LABS: Basophils # (auto) 0.02 K/uL (0-0.2); Basophils % (auto) 0.2 %; Eosinophils % (auto) 3.1 %; Hematocrit (blood only) 38.5 % (42.0-52.0); Hemoglobin 13.2 g/dl (14.0-18.0); Immature Granulocytes # (auto) 0.28 K/uL (0.01-0.20); Immature Granulocytes % (auto) 2.9 %; Lymphocytes # (auto) 1.24 K/uL (1.2-3.4); Lymphocytes % (auto) 12.8 %; Mean Corpuscular Hgb Conc 34.3 g/dL (32.0-36.0); Mean Corpuscular Volume 90.4 fL (80.0-100.0); Monocytes # (auto) 0.88 K/uL (0.11-0.59); Monocytes % (auto) 9.1 %; Neutrophils # (auto) 6.95 K/uL (1.40-6.50); Neutrophils % (auto) 71.9 %; Platelet Count 351 K/uL (130-400); RDW Coefficient of Variation 13.6 % (11.5-14.5); RDW Standard Deviation 45.4 fL (36.4-46.3); Red Blood Count 4.26 M/uL (4.70-6.10); White Blood Count 9.67 K/ul (4.8-10.8)
[2023-02-02 08:59] LABS: Anion Gap 7 (3-11); Calcium 7.6 mg/dl (8.6-10.3); Carbon Dioxide 23 mmol/L (21-32); Chloride 101 mmol/L (98-107); Potassium 3.8 mmol/L (3.5-5.1); Sodium 131 mmol/L (136-145)
[2023-02-02 09:05] LABS: BUN Creatinine Ratio 4.6 (10-20); Blood Urea Nitrogen 3 mg/dl (6-23); Creatinine Clr Calc Pharmacy 257.8 ml/min; Est GFR (African American) > 150.0 ml/min; Est GFR (Non-African American) 133.3 ml/min; Glucose 103 mg/dl (70-99(Fasting))
[2023-02-02] MEDS: GABAPENTIN 300 MG CAP PO SCH ×3 (09:21→20:51)
[2023-02-02] MEDS: THIAMINE HCL 100 MG TAB PO SCH (09:22)
[2023-02-02] MEDS: busPIRone 5 MG TAB PO SCH ×3 (09:22→20:52)
[2023-02-02] MEDS: MULTIVITAMIN TAB PO SCH (09:24)
[2023-02-02] MEDS: FOLIC ACID 1 MG TAB PO SCH (09:24)
[2023-02-02] MEDS: SODIUM CHLORIDE 0.9% 1000ML 1,000 ML IV SCH ×3 (09:26→18:46)
--- NOTE | 2023-02-02 09:32 | Pulmonology Progress Note ---
Date of Service February 02, 2023 Assessment & Plan (1) Hydropneumothorax: (2) Parapneumonic effusion: Plan Impression: 27-year-old male with prior history of asthma presenting with loculated parapneumonic effusion with significant pleural gas. He is status post placement of a 14 German pigtail catheter with significant improvement in his chest x-ray. Patient continues with pain along the left flank. Recommendations: 1. Parapneumonic effusion: * 14 German pigtail catheter in place and secure. No air leak on Day Pleur- evac. Significant decrease in output to around 100 cc overnight. * MIST 2 protocol. * Keep drain in place but will change to waterseal. * Continue Toradol, oxycodone, morphine for pain management per primary team. * Cultures no growth to date and cytology unrevealing. * Currently receiving Unasyn. Would continue antibiotics for at least 2 weeks. * Patient was presented to the multidisciplinary thoracic conference last . Reviewed with thoracic surgery. They agreed with treatment plan. 2. Asthma: * Patient reports history of severe asthma and follows with Dr. Hobson * He reports his only inhaler at home is albuterol. * Patient does receive Dupixent 100 mg subcutaneously q. 14 days * Bronchospastic this morning. Will order nebulizer treatment with Xopenex and follow supportively Thank you for including us in the care of this patient. Please refer to Dr. Rae's addendum for further recommendations and corrections. Patient should be encouraged to get out of bed to chair and ambulate as tolerated. Continue with incentive spirometry as tolerated. Admission and Anticipated Discharge Date Admission Date: January 30, 2023 Subjective Attending: Dr. Rae 27-year-old male that came in with complicated left pleural effusion. A 14 German chest tube was placed and MIST 2 protocol was initiated with good initial evidence of broken up loculation and output. Patient does continue with discharge into Day but with significant decrease from 700 cc yesterday morning to 240 cc second shift yesterday to low but over 100 cc overnight. Patient complaining of increased pain along the left flank. Description of patient suggests pleural irritation as lung reexpands. Chest x-ray reviewed with evidence of persistent but decreasing pneumohydrothorax. Patient did receive 6 doses of Toradol yesterday with effect. Patient also continues to receive narcotics in the form of Percocet and morphine. Patient with large bowel movement this morning which was watery. This was post administration of MiraLAX, Senokot, Colace. No nausea or vomiting. No shortness of breath. No new acute pulmonary complaints. Review of Systems Review of Systems: A total of 10 systems was reviewed and is negative other than as listed in the HPI Physical Exam Physical Exam: GENERAL : No acute distress EYES: No icterus, gaze conjugate NOSE: No evidence of epistaxis MOUTH: No lesions or candidiasis NECK: Supple LUNGS: Scattered wheezes. No pronounced rales or rhonchi. Patient with decreased inspiratory effort secondary to pleuritic type pain on the left. However, patient able to effectively use incentive spirometer with deep inspiration. HEART: Regular, rate controlled ABDOMEN: Soft, NT, ND, BS Present EXTREMITIES: No LE edema, pedal pulses intact NEURO: A&OX3 Results & Data Results & Data Vital Signs (Past 12 Hours) Vital Signs Temp Pulse Pulse Pulse Resp BP Pulse Ox 02/02/23 07:27 37.1 C 111 H 18 133/85 97 02/02/23 05:37 111 H 18 96 02/02/23 00:00 115 H 02/02/23 03:45 37.2 C 99 H 18 130/85 100 02/01/23 23:57 37.3 C 111 H 21 111/77 93 02/01/23 23:09 118 H 18 93 O2 Del Method 02/02/23 07:27 Room Air 02/02/23 05:37 Room Air 02/02/23 00:00 02/02/23 03:45 Room Air 02/01/23 23:57 Room Air 02/01/23 23:09 Room Air Critical Care Results & Data Vital Signs (Past 12 Hours) Vital Signs Temp Pulse Pulse Pulse Resp BP Pulse Ox 02/02/23 07:27 37.1 C 111 H 18 133/85 97 02/02/23 05:37 111 H 18 96 02/02/23 00:00 115 H 02/02/23 03:45 37.2 C 99 H 18 130/85 100 02/01/23 23:57 37.3 C 111 H 21 111/77 93 02/01/23 23:09 118 H 18 93 O2 Del Method 02/02/23 07:27 Room Air 02/02/23 05:37 Room Air 02/02/23 00:00 02/02/23 03:45 Room Air 02/01/23 23:57 Room Air 02/01/23 23:09 Room Air Lab & Micro Results (Past 24 Hours) RBC 4.26 M/uL (4.70-6.10) L 02/02/23 WBC 9.67 K/ul (4.8-10.8) 02/02/23 Hgb 13.2 g/dl (14.0-18.0) L 02/02/23 Hct 38.5 % (42.0-52.0) L 02/02/23 MCV 90.4 fL (80.0-100.0) 02/02/23 MCH 31.0 pg (25.0-34.0) 02/02/23 MCHC 34.3 g/dL (32.0-36.0) 02/02/23 RDW Standard Deviation 45.4 fL (36.4-46.3) 02/02/23 RDW Coefficient of Variation 13.6 % (11.5-14.5) 02/02/23 Plt Count 351 K/uL (130-400) 02/02/23 MPV 11.0 fL (9.4-12.4) 02/02/23 Neutrophils (%) (Auto) 71.9 % 02/02/23 Lymphocytes (%) (Auto) 12.8 % 02/02/23 Monocytes # (Auto) 0.88 K/uL (0.11-0.59) H 02/02/23 Eosinophils # (Auto) 0.30 K/uL (0-0.50) 02/02/23 Immature Granulocyte % (Auto) 2.9 % 02/02/23 Neutrophils # (Auto) 6.95 K/uL (1.40-6.50) H 02/02/23 Lymphocytes # (Auto) 1.24 K/uL (1.2-3.4) 02/02/23 Monocytes # (Auto) 0.88 K/uL (0.11-0.59) H 02/02/23 Eosinophils # (Auto) 0.30 K/uL (0-0.50) 02/02/23 Basophils # (Auto) 0.02 K/uL (0-0.2) 02/02/23 Immature Granulocyte # (Auto) 0.28 K/uL (0.01-0.20) H 02/02 Na 131 mmol/L (136-145) L 02/02/23 K 3.8 mmol/L (3.5-5.1) 02/02/23 Cl 101 mmol/L (98-107) 02/02/23 CO2 23 mmol/L (21-32) 02/02/23 Anion Gap 7 (3-11) 02/02/23 BUN 3 mg/dl (6-23) L 02/02/23 Creatinine 0.65 mg/dl (0.6-1.4) 02/02/23 Estimated GFR ( Amer) > 150.0 ml/min 02/02/23 Estimated GFR (Non-Af Amer) 133.3 ml/min 02/02/23 BUN/Creatinine Ratio 4.6 (10-20) L 02/02/23 Glu 103 mg/dl (70-99(Fasting)) H 02/02/23 Ca 7.6 mg/dl (8.6-10.3) L 02/02/23 Calcium Level 7.6 mg/dl (8.6-10.3) L 02/02/23 06:39 I & O Totals 24 Hours 02/01/23 02/02/23 02/03/23 06:59 06:59 06:59 Intake Total 4030.0 / 4030.0 3797.583 / 3797.583 Output Total 1360 / 1360 430 / 430 Balance 2670.0 / 2670.0 3367.583 / 3367.583 Cumulative 01/29/23 21:25 thru 02/02/23 06:43 Intake Total 66790.916 Output Total 4260 Balance 8150.916 RT Ventilator Mngmt (Last Documented) Ventilator Ordered Settings Respiratory Rate 18 02/02/23 07:27 Fraction of Inspired Oxygen 21 02/01/23 14:18 Ventilator - PT Measurements Respiratory Rate 18 PG Care Time/CCT Total # of Minutes Spent Total Time Spent with Patient: Total time spent is greater than 50% in coordination of care (as documented) at patient's floor/unit and/or counseling patient:20 Coding Level of Care Code 82766 SUB INP/OBS CARE 1/25MIN Diagnoses Hydropneumothorax J94.8 Parapneumonic effusion J18.9; J91.8
[2023-02-02] MEDS: DOCUSATE SODIUM/SENNA 50/8.6MG TAB PO SCH (10:35)
--- NOTE | 2023-02-02 14:44 | Hospitalist Progress Note ---
Date of Service February 02, 2023 Assessment & Plan (1) Sepsis: Plan: SECONDARY TO LEFT-SIDED EMPYEMA HISTORY OF BRONCHIAL ASTHMA Status post pigtail catheter insertion, left lung January 30, 2023 Blood cultures: Negative x2 days Pleural fluid culture: No growth to date Hemoglobin 13 Continue IV Unasyn day #4 Pigtail catheter management per pulmonary service Pain control, hold Toradol As needed nebs HYPOKALEMIA Potassium 3.8 Replace HTN BP stable hx ASD hx eosinophilic esophagitis/GERD prediabetes, hemoglobin A1c of 5.1 last year anxiety/mood disorder, at baseline DVT prophylaxis. Lovenox subcu Full code plan of care discussed with patient in detail all questions answered He is understanding, agreeable, comfortable with the plan of care Admission and Anticipated Discharge Date Admission Date: January 30, 2023 Subjective Follow-up for empyema, etc. Seen resting in bed, not in distress, comfortable States he feels somewhat more comfortable today Breathing is improving Has intermittent dry cough No fevers or chills, chest pain, palpitations, dizziness No any other symptoms Review of Systems Review of Systems: all noted and negative except for above Physical Exam Physical Exam: General- oriented x 3, not in distress, speaks in sentences with no effort or accessory muscle use Eyes- anicteric Neck- no JVD Lungs- clear breath sounds bilaterally, no rales/wheezes Chest tube in place, suction turned off Heart- normal rate, regular rhythm; no murmurs Abdomen- normal bowel sounds, nondistended, soft, nontender Extremities- no pretibial edema, no calf tenderness Neuro- alert, oriented x 3; no gross focal neurologic deficits Skin- warm & dry Results & Data Results & Data Vital Signs (Past 12 Hours) Vital Signs Temp Pulse Pulse Resp BP Pulse Ox O2 Del Method 02/02/23 13:25 112 H 16 95 Room Air 02/02/23 10:50 37 C 114 H 18 118/68 96 Room Air 02/02/23 09:32 18 96 Room Air 02/02/23 07:27 37.1 C 111 H 18 133/85 97 Room Air 02/02/23 05:37 111 H 18 96 Room Air 02/02/23 03:45 37.2 C 99 H 18 130/85 100 Room Air all noted and reviewed including below
[2023-02-02] MEDS: LEVALBUTEROL 1.25 MG/3 ML NEB NEB SCH ×3 (15:22→23:07)
--- NOTE | 2023-02-02 17:43 | XRay Report ---
XR chest 1V portable CLINICAL HISTORY: Chest tube ? MIST 2 protocol TECHNIQUE: Single frontal radiograph of the chest was obtained. Comparison: Comparison is made to chest radiograph 02/01/2023 FINDINGS: A left chest tube is seen. Cardiomegaly is noted. The lungs are clear. Left pleural effusion is seen. The component of pneumothorax is further decreased from prior exam. IMPRESSION: Left pleural effusion, drained by pleural catheter. The degree of pneumothorax has further decreased from prior exam. ACT 112: Negative or not required by law. Electronically signed by: Froilan Galvan M.D. 02/02/2023 5:42 PM
[2023-02-02] MEDS: MIRTAZAPINE SOLTAB 15 MG PO SCH (20:52)
[2023-02-03] MEDS: oxyCODONE HCL IR 5 MG TAB (IMMEDIATE RELEASE) PO PRN ×4 (00:50→19:32)
[2023-02-03] MEDS: SODIUM CHLORIDE 0.9% 1000ML 1,000 ML IV SCH ×3 (00:53→19:18)
[2023-02-03] MEDS: LEVALBUTEROL 1.25 MG/3 ML NEB NEB SCH ×6 (03:57→22:57)
[2023-02-03] MEDS: AMPICILLIN/SULBACTAM SOD 3,000 MG in 0.9 % SODIUM CHLORIDE 100 ML IV SCH ×4 (04:01→21:28)
[2023-02-03] MEDS: MoRPHine SULFATE 4 MG/ML 1 ML CARP\\VIAL IV PRN ×5 (04:01→23:02)
[2023-02-03 06:06] LABS: Basophils # (auto) 0.02 K/uL (0-0.2); Basophils % (auto) 0.3 %; Eosinophils # (auto) 0.27 K/uL (0-0.50); Eosinophils % (auto) 3.8 %; Hematocrit (blood only) 36.9 % (42.0-52.0); Hemoglobin 12.4 g/dl (14.0-18.0); Immature Granulocytes # (auto) 0.31 K/uL (0.01-0.20); Immature Granulocytes % (auto) 4.4 %; Lymphocytes # (auto) 1.37 K/uL (1.2-3.4); Lymphocytes % (auto) 19.4 %; Mean Corpuscular Hemoglobin 30.8 pg (25.0-34.0); Mean Corpuscular Hgb Conc 33.6 g/dL (32.0-36.0); Mean Corpuscular Volume 91.6 fL (80.0-100.0); Mean Platelet Volume 10.5 fL (9.4-12.4); Monocytes # (auto) 0.76 K/uL (0.11-0.59); Monocytes % (auto) 10.8 %; Neutrophils # (auto) 4.32 K/uL (1.40-6.50); Neutrophils % (auto) 61.3 %; Platelet Count 347 K/uL (130-400); RDW Coefficient of Variation 13.7 % (11.5-14.5); RDW Standard Deviation 46.6 fL (36.4-46.3); Red Blood Count 4.03 M/uL (4.70-6.10); White Blood Count 7.05 K/ul (4.8-10.8)
[2023-02-03 06:13] LABS: BUN Creatinine Ratio 2.7 (10-20); Calcium 7.7 mg/dl (8.6-10.3); Creatinine Clr Calc Pharmacy 229.5 ml/min; Est GFR (African American) 147.3 ml/min; Est GFR (Non-African American) 127.1 ml/min; Potassium 3.1 mmol/L (3.5-5.1)
--- NOTE | 2023-02-03 07:22 | XRay Report ---
XR chest 1V portable HISTORY: Chest tube ? MIST 2 protocol COMPARISON: Chest 02/02/2023. FINDINGS: Slight improvement in the small left hydropneumothorax/empyema. The left basilar chest tube is unchanged in position. Trace left chest wall subcutaneous emphysema again noted. No right-sided p neumothorax. Right basilar linear densities favor subsegmental atelectasis. The heart remains mildly enlarged. IMPRESSION: Slight improvement in the small left hydropneumothorax. The left basilar chest tube is unchanged in p osition. ACT 112: Negative or not required by law. Electronically signed by: Levi Nascimento M.D. 02/03/2023 7:21 AM
[2023-02-03] MEDS: THIAMINE HCL 100 MG TAB PO SCH (07:45)
[2023-02-03] MEDS: busPIRone 5 MG TAB PO SCH ×3 (07:45→21:29)
[2023-02-03] MEDS: GABAPENTIN 300 MG CAP PO SCH ×3 (07:45→21:26)
[2023-02-03] MEDS: FOLIC ACID 1 MG TAB PO SCH (07:45)
[2023-02-03] MEDS: MULTIVITAMIN TAB PO SCH (07:45)
[2023-02-03] MEDS: DOCUSATE SODIUM/SENNA 50/8.6MG TAB PO SCH (07:46)
[2023-02-03] MEDS: ACETAMINOPHEN 500 MG TAB PO PRN ×2 (09:17→23:30)
--- NOTE | 2023-02-03 10:05 | Pulmonology Progress Note ---
Date of Service February 03, 2023 Assessment & Plan (1) Hydropneumothorax: (2) Parapneumonic effusion: Plan Impression: 27-year-old male with prior history of asthma presenting with loculated parapneumonic effusion with significant pleural gas. He is status post placement of a 14 [place] pigtail catheter with significant improvement in his chest x-ray. Patient continues with pain along the left flank. Recommendations: 1. Parapneumonic effusion: No air leak noted on exam today. Slight bloody drainage at the insertion site noted. 345 mL out overnight. Patient completed MIST 2 protocol. Doing well on water seal now. Continue with antibiotic coverage. Catheter to remain in place given ongoing output. Continue OOB as tolerated. Pain control as needed. 2. Asthma: Follows with Dr. Hobson. Slight wheeze noted on exam today. Patient has requested scheduled nebs from RT. May need to escalate care pending changes response to nebs. Thank you for including us in the care of this patient. Please refer to Dr. Rae's addendum for further recommendations and corrections. Admission and Anticipated Discharge Date Admission Date: January 30, 2023 Subjective Patient was seen and evaluated at bedside. He complains of some LEFT-sided chest pain at the site of catheter placement. He also complains of ongoing abdominal discomfort which has been present. No fevers or chills. No productive cough. Review of Systems Review of Systems: A total of 10 systems was reviewed and is negative other than as listed in the HPI Physical Exam Physical Exam: VITAL SIGNS - Vital signs and nursing notes were reviewed. GENERAL - 27-year-old male appearing his stated age who is in no acute distress. Communicates well with provider and answers questions appropriately. SKIN - LEFT sided pigtail catheter in place to the lateral chest wall. Mild bloody drainage collected around the insertion site. No surrounding erythema, edema, or ecchymosis. LUNGS - Chest tube site as described above. Auscultation reveals normal breath sounds with slight inspiratory wheezes predominately of the RIGHT lung field. CARDIAC - RRR with S1/S2. No murmur, rubs, or gallops appreciated. ABDOMEN - Abdominal inspection demonstrates an obese abdomen. BS normoactive all four quadrants. Mild TTP without rebound tenderness or guarding. PSYCH - A&Ox3 and cooperates fully with examiner. Pt is very pleasant and interacts well with examiner. Results & Data Results & Data Vital Signs (Past 12 Hours) Vital Signs Temp Pulse Pulse Resp BP Pulse Ox O2 Del Method 02/03/23 07:17 37.3 C 108 H 20 120/80 99 Room Air 02/03/23 07:12 103 H 18 97 Room Air 02/03/23 00:00 119 H 02/03/23 03:57 111 H 18 95 Room Air 02/03/23 03:18 37.1 C 118 H 23 132/85 97 Room Air 02/02/23 23:08 118 H 19 95 Room Air 02/02/23 23:00 37.6 C H 112 H 20 122/65 95 Room Air PG Care Time/CCT Total # of Minutes Spent Total Time Spent with Patient: Total time spent is greater than 50% in coordination of care (as documented) at patient's floor/unit and/or counseling patient: Coding Level of Care Code 94299 SUB INP/OBS CARE 2/35MIN Diagnoses Hydropneumothorax J94.8 Parapneumonic effusion J18.9; J91.8
[2023-02-03] MEDS ORDERED: SIMETHICONE 80 MG CHEW PO PRN (15:27)
[2023-02-03] MEDS: PANTOprazole 40 MG in SYRINGE 0 ML IV SCH (17:28)
[2023-02-03] MEDS ORDERED: POTASSIUM CHLORIDE CRTAB 20 MEQ TABCR PO STA (18:26)
--- NOTE | 2023-02-03 18:27 | Hospitalist Progress Note ---
Date of Service February 03, 2023 Assessment & Plan (1) Sepsis: Plan: SECONDARY TO LEFT-SIDED EMPYEMA HISTORY OF BRONCHIAL ASTHMA Status post pigtail catheter insertion, left lung January 30, 2023 Blood cultures: Negative x2 days Pleural fluid culture: No growth to date Hemoglobin 14-->13--> 12 Continue IV Unasyn day #5 Pigtail catheter management per pulmonary service Pain control, hold Toradol As needed nebs HYPOKALEMIA Potassium 3.8 Replace HTN BP stable hx ASD hx eosinophilic esophagitis/GERD prediabetes, hemoglobin A1c of 5.1 last year anxiety/mood disorder, at baseline DVT prophylaxis. Lovenox subcu Full code plan of care discussed with patient in detail all questions answered He is understanding, agreeable, comfortable with the plan of care Admission and Anticipated Discharge Date Admission Date: January 30, 2023 Subjective Follow-up for empyema, etc. Seen resting in bed, comfortable, not in distress States he is still having significant left-sided pain, from pigtail insertion Breathing is somewhat better today Less cough, no shortness of breath No fevers or chills no any other symptoms Review of Systems Review of Systems: all noted and negative except for above Physical Exam Physical Exam: General- oriented x 3, not in distress, speaks in sentences with no effort or accessory muscle use Eyes- anicteric Neck- no JVD Lungs-left lung: Last diminished, mild rales at the bases, clear on the right Heart- normal rate, regular rhythm; no murmurs Abdomen- normal bowel sounds, nondistended, soft, nontender Extremities- no pretibial edema, no calf tenderness Neuro- alert, oriented x 3; no gross focal neurologic deficits Skin- warm & dry Results & Data Results & Data Vital Signs (Past 12 Hours) Vital Signs Temp Pulse Resp BP Pulse Ox O2 Del Method FiO2 02/03/23 15:37 37.4 C 106 H 18 135/90 100 Room Air 02/03/23 15:35 110 H 15 99 Room Air 21 02/03/23 11:12 36.8 C 102 H 18 139/85 99 Room Air 02/03/23 11:11 102 H 16 96 Room Air 02/03/23 07:15 Room Air 02/03/23 07:17 37.3 C 108 H 20 120/80 99 Room Air 02/03/23 07:12 103 H 18 97 Room Air all noted and reviewed including below
[2023-02-03] MEDS: MIRTAZAPINE SOLTAB 15 MG PO SCH (21:27)
[2023-02-03] MEDS ORDERED: NSS + 20MEQ KCL 20 MEQ/1,000 ML BAG IV ONE (23:59)
[2023-02-04] MEDS: PROMETHAZINE HCL 12.5 MG in SODIUM CHLORIDE 0.9% 50 ML IV PRN (01:01)
[2023-02-04] MEDS: oxyCODONE HCL IR 5 MG TAB (IMMEDIATE RELEASE) PO PRN ×3 (01:31→14:39)
[2023-02-04] MEDS: LEVALBUTEROL 1.25 MG/3 ML NEB NEB SCH ×4 (02:13→15:45)
[2023-02-04] MEDS: AMPICILLIN/SULBACTAM SOD 3,000 MG in 0.9 % SODIUM CHLORIDE 100 ML IV SCH ×3 (04:06→16:06)
[2023-02-04] MEDS: MoRPHine SULFATE 4 MG/ML 1 ML CARP\\VIAL IV PRN ×4 (04:58→17:24)
[2023-02-04 06:16] LABS: Hemoglobin 12.6 g/dl (14.0-18.0); Mean Corpuscular Hemoglobin 30.2 pg (25.0-34.0); Mean Corpuscular Hgb Conc 33.2 g/dL (32.0-36.0); Mean Corpuscular Volume 91.1 fL (80.0-100.0); Mean Platelet Volume 10.2 fL (9.4-12.4); Platelet Count 365 K/uL (130-400); RDW Coefficient of Variation 13.9 % (11.5-14.5); RDW Standard Deviation 46.8 fL (36.4-46.3); Red Blood Count 4.17 M/uL (4.70-6.10); White Blood Count 6.52 K/ul (4.8-10.8)
[2023-02-04 06:33] LABS: BUN Creatinine Ratio 2.6 (10-20); Calcium 7.9 mg/dl (8.6-10.3); Creatinine Clr Calc Pharmacy 214.8 ml/min; Est GFR (African American) 143.4 ml/min; Est GFR (Non-African American) 123.7 ml/min; Potassium 3.5 mmol/L (3.5-5.1)
[2023-02-04 06:41] LABS: Basophils # (auto) 0.02 K/uL (0-0.2); Basophils % (auto) 0.3 %; Eosinophils # (auto) 0.27 K/uL (0-0.50); Eosinophils % (auto) 4.1 %; Immature Granulocytes # (auto) 0.34 K/uL (0.01-0.20); Immature Granulocytes % (auto) 5.2 %; Lymphocytes # (auto) 1.41 K/uL (1.2-3.4); Lymphocytes % (auto) 21.6 %; Monocytes # (auto) 0.85 K/uL (0.11-0.59); Neutrophils # (auto) 3.63 K/uL (1.40-6.50); Neutrophils % (auto) 55.8 %
[2023-02-04] MEDS: DOCUSATE SODIUM/SENNA 50/8.6MG TAB PO SCH (08:15)
[2023-02-04] MEDS: FOLIC ACID 1 MG TAB PO SCH (08:17)
[2023-02-04] MEDS: MULTIVITAMIN TAB PO SCH (08:17)
[2023-02-04] MEDS: GABAPENTIN 300 MG CAP PO SCH ×2 (08:17→14:39)
[2023-02-04] MEDS: THIAMINE HCL 100 MG TAB PO SCH (08:17)
[2023-02-04] MEDS: busPIRone 5 MG TAB PO SCH ×2 (08:17→14:38)
--- NOTE | 2023-02-04 08:18 | Pulmonology Progress Note ---
Date of Service February 04, 2023 Assessment & Plan (1) Hydropneumothorax: (2) Parapneumonic effusion: Plan Impression: 27-year-old male with prior history of asthma presenting with l oculated parapneumonic effusion with significant pleural gas. He is status post placement of a 14 [place] pigtail catheter with significant improvement in his chest x-ray. He was febrile last night but his white blood cell count remains normal. He continues on Unasyn. His drain output is still too high to consider removal of the tube.. Recommendations: 1. Parapneumonic effusion: No air leak noted on exam today. Slight bloody drainage at the insertion site noted. 345 mL out overnight. Patient completed MIST 2 protocol. Doing well on water seal now. Continue with antibiotic coverage. Catheter to remain in place given ongoing output. Continue OOB as tolerated. Pain control as needed. 2. Asthma: Follows with Dr. Hobson. Continue bronchodilators as needed. 3. Fever: Unclear etiology. Recommend proceeding with noncontrast CT scan of the chest to evaluate pulmonary parenchyma as well as adequacy of the current chest tube in evacuating the pleural space. Recheck procalcitonin. Would have a low threshold for repeating cultures if patient were persistently febrile 4. Evaluation management of the patient's abdominal pain per the primary admitting service Thank you for including us in the care of this patient. We will continue to follow with Admission and Anticipated Discharge Date Admission Date: January 30, 2023 Subjective Patient seen and examined. Discussed with patient and mother at bedside. He continues to have pain although he states it is more abdominal pain than anything else at this point time. The chest tube is put out about 150 cc in the last 12 hours. Output is definitely decreasing. He had a fever last night. Tmax was 38.4. He was started on IV fluids. He has been eating and drinking okay Review of Systems Review of Systems: All systems reviewed & are unremarkable except as noted in Subjective Physical Exam Constitutional: WD/WN, vitals as above Neck: trachea midline, no thyromegaly Respiratory: no respiratory distress, no labored breathing, no cough and not tachypneic Auscultation: + diminished lung sounds Cardiovascular: Rate/Rhythm: regular rate and + tachycardic Heart Sounds: normal S1 and normal S2; no murmur Extremities: no edema Gastrointestinal (Abdomen): normal bowel sounds, soft, nontender, no hepatosplenomegaly Musculoskeletal: Extremities: extremities normal to inspection Skin: no rashes, warm and dry Lymphatic: no cervical lymphadenopathy Results & Data Results & Data Vital Signs (Past 12 Hours) Vital Signs Temp Pulse Pulse Resp BP Pulse Ox O2 Del Method 02/04/23 07:29 104 H 16 97 Room Air 02/04/23 00:00 114 H 02/04/23 07:07 36.6 C 112 H 20 114/73 96 Room Air 02/04/23 03:14 37.7 C H 117 H 16 120/71 98 Room Air 02/04/23 02:13 115 H 18 91 Room Air 02/03/23 23:00 38.4 C H 122 H 21 104/64 97 Room Air 02/03/23 22:57 18 93 Room Air Laboratory Results 02/04/23 05:38 02/04/23 05:38 Culture data shows no growth to date. Diagnostic Findings No imaging this morning PG Care Time/CCT Total # of Minutes Spent Total Time Spent with Patient: Total time spent is greater than 50% in coordination of care (as documented) at patient's floor/unit and/or counseling patient: Coding Level of Care Code 26904 SUB INP/OBS CARE 2/35MIN Diagnoses Hydropneumothorax J94.8 Parapneumonic effusion J18.9; J91.8
[2023-02-04] MEDS: PANTOprazole 40 MG in SYRINGE 0 ML IV SCH (09:54)
--- NOTE | 2023-02-04 09:59 | CT Scan Report ---
CT chest diagnostic wo con CT DOSE: 2984.98 mGy.cm CLINICAL HISTORY: 27 years-old Male with Follow-up empyema. Acute shortness of breath TECHNIQUE: Multiaxial CT images of the chest were performed without contrast. A dose lowering techni que was utilized adhering to the principles of ALARA. COMPARISON: CT abdomen and pelvis of same day, chest CT 01/30/2023 FINDINGS: Unremarkable thyroid. Borderline enlarged mediastinal and hilar lymph nodes measuring up to 10 mm artemio ear stable. The heart is normal in size without pericardial effusion. Unremarkable thoracic aorta. Mild subsegmental left greater than right bibasilar atelectasis. Consolidation and volume loss within the left lower lobe again noted however there is improved aeration compared to the prior study. Locu lated complex left-sided pleural effusion has decreased in size from prior and is largest posteriorly . Small left-sided pneumothorax component with pleural separation measuring up to 8 mm anterolaterall y. Loculated air and fluid filled collection within the posterior medial left hemithorax measures up to 4.7 x 9.8 x 20 cm. A pigtail drainage catheter is noted with distal tip in the left pleural space at the level of the left lung base. Pleural thickening is noted throughout the left chest wall. This is located approximately 6.5 cm from the center of the residual empyema. Subcutaneous emphysema deep tissue air left chest wall. Hepatomegaly with hepatic steatosis. Cholecystectomy. No acute process of the imaged upper abdomen. N onspecific subcutaneous edema of the right anterior abdominal wall. No acute fracture identified. IMPRESSION: 1. Decreased size of the left-sided empyema compared to the 01/30/2023 study. Residual empyema she is now largest posteromedially. The pigtail pleural drainage catheter is positioned several centimeters lateral to the residual fluid collection. 2. Small left-sided pneumothorax. 3. Mild likely reactive mediastinal and hilar lymphadenopathy again noted. 4. Improved aeration of the left lower lobe with persistent consolidation and volume loss. 5. Hepatic steatosis with hepatomegaly. ACT 112: Negative or not required by law. Electronically signed by: Faustino [facility] M.D. 02/04/2023 9:57 AM
--- NOTE | 2023-02-04 12:31 | CT Scan Report ---
CT abd pelvis wo con CLINICAL HISTORY: abdominal pain TECHNIQUE: Helical axial images of the abdomen and pelvis were obtained. Automated dose lowering tech niques and/or adjustment according to patient size were utilized for this exam. This exam was perfor med without intravenous contrast. COMPARISON: Comparison is made to CT abdomen pelvis 01/30/2023 FINDINGS: Lower chest: For findings above the diaphragm, please see CT chest performed same day. Liver: Hepatic steatosis is noted. Gallbladder and biliary tree: Patient is status post cholecystectomy. No intra- or extrahepatic bilia ry ductal dilation. Pancreas: Unremarkable, no focal lesions. Spleen: Unremarkable. Adrenals: Unremarkable. Kidneys and ureters: Nonobstructive nephrolithiasis is seen. Bladder: Unremarkable. Reproductive organs: Unremarkable. Bowel: Gas and liquid contents are seen in the colon. Lymph nodes Retroperitoneal: Unremarkable. Pelvic: Unremarkable. Mesenteric: Unremarkable. Peritoneum: Normal. Vessels: Unremarkable. Abdominal wall: Edema is seen in the right anterior abdominal wall. There is an umbilical hernia. Bones: Degenerative changes in the visualized spine. IMPRESSION: 1. Diarrhea is seen without other acute abnormalities. 2. Hepatic steatosis. 3. Please see CT chest performed same day for findings below the diaphragm. ACT 112: Negative or not required by law. Electronically signed by: Froilan Galvan M.D. 02/04/2023 12:29 PM
--- NOTE | 2023-02-04 13:55 | Hospitalist Progress Note ---
Date of Service February 04, 2023 Assessment & Plan (1) Sepsis: Plan: SECONDARY TO LEFT-SIDED EMPYEMA, PARAPNEUMONIC EFFUSION HISTORY OF BRONCHIAL ASTHMA Status post pigtail catheter insertion, left lung January 30, 2023 Blood cultures: Negative x2 days Pleural fluid culture: No growth to date Pigtail catheter still draining around [address] chest today: 1. Decreased size of the left-sided empyema compared to the 01/30/2023 study. Res idual empyema she is now largest posteromedially. The pigtail pleural drainage catheter is positioned several centimeters lateral to the residual fluid collection. 2. Small left-sided pneumothorax. 3. Mild likely reactive mediastinal and hilar lymphadenopathy again noted. 4. Improved aeration of the left lower lobe with persistent consolidation and volume loss. 5. Hepatic steatosis with hepatomegaly. Discussed with pulmonary service recommended to transfer patient to [facility] for VATS procedure Discussed with Dr. Sandy and From [facility] They have kindly accepted the patient for transfer Accepting physician is Dr. Jha Hemoglobin 14-->13--> 12 Continue IV Unasyn day #6 Pigtail catheter management per pulmonary service Pain control As needed nebs GENERALIZED ABDOMINAL DISCOMFORT, WITH DIARRHEA Reports diarrhea for the past few weeks CT abdomen pelvis: 1. Diarrhea is seen without other acute abnormalities. 2. Hepatic steatosis. 3. Please see CT chest performed same day for findings below the diaphragm. Stool for PCR and C. difficile ordered Protonix IV ordered HYPOKALEMIA Potassium 3.5 Replace HTN BP stable hx ASD hx eosinophilic esophagitis/GERD prediabetes, hemoglobin A1c 5.6 anxiety/mood disorder, at baseline DVT prophylaxis. Lovenox subcu Full code plan of care discussed with patient in detail all questions answered He is understanding, agreeable, comfortable with the plan of care Admission and Anticipated Discharge Date Admission Date: January 30, 2023 Subjective Follow-up for empyema, etc. Seen resting, sleeping but easily awakened States he feels okay overall Still having significant left-sided chest wall pain Had a fever spike overnight Breathing is improving Was having some generalized abdominal discomfort, with some loose stools No other new symptoms Review of Systems Review of Systems: all noted and negative except for above Physical Exam Physical Exam: General- oriented x 3, not in distress, speaks in sentences with no effort or accessory muscle use Eyes- anicteric Neck- no JVD Lungs-mild decreased breath sounds at the left base, clear on the right Pigtail catheter on the left chest wall: With very small leakage of serosanguineous fluid Heart- normal rate, regular rhythm; no murmurs Abdomen- normal bowel sounds, nondistended, soft, mild generalized tenderness Extremities- no pretibial edema, no calf tenderness Neuro- alert, oriented x 3; no gross focal neurologic deficits Skin- warm & dry Results & Data Results & Data Vital Signs (Past 12 Hours) Vital Signs Temp Pulse Pulse Resp BP Pulse Ox O2 Del Method 02/04/23 11:56 105 H 16 96 Room Air 02/04/23 11:04 36.6 C 106 H 20 112/65 95 Room Air 02/04/23 08:51 110 H 02/04/23 08:51 Room Air 02/04/23 07:29 104 H 16 97 Room Air 02/04/23 07:07 36.6 C 112 H 20 114/73 96 Room Air 02/04/23 03:14 37.7 C H 117 H 16 120/71 98 Room Air 02/04/23 02:13 115 H 18 91 Room Air all noted and reviewed including below
--- NOTE | 2023-02-05 16:53 | Discharge Summary ---
Discharge Summary Date of Service February 05, 2023 delayed entry date of service 02/04/23 Notes For Next Care Provider Medication Changes From Visit [facility] Admission HPI Per Admitting Provider History obtained from patient, family, and records. Medical history significant for HTN, ASD, bronchial asthma, eosinophilic esophagitis, GERD status post surgery, prediabetes, [place]-Sch[place] disease, anxiety/mood disorder, alcohol abuse. Last confinement November 2015 for chest pain. ACS ruled out. 2 weeks ago, patient passed out outside a local gasoline station. Patient evaluated at [facility] ER. Symptoms attributed to alcohol abuse as per patient. Last week, patient noted cough symptoms productive of junky yellow-green sputum. No chest pain, no SOB. Patient unaware of aspiration episodes. Patient noted achy abdominal pain worsened by cough symptoms followed by watery diarrhea symptoms. 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 No recent antibiotic Rx. IV Ceftriaxone and Flagyl administered at the ER for empyema on CT imaging. 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 Exam Per Admitting Provider GENERAL: Slightly uncomfortable, pleasant, morbidly obese, looks older than stated age, no respiratory distress SKIN: Normal color, warm HEENT: [place] palpebral conjunctivae, no ptosis, dry buccal mucosa NECK : Supple, short neck, no tenderness CHEST : Decreased breath sounds, no tenderness HEART : Tachycardic, no obvious murmurs ABDOMEN: Some distention, central abdominal tenderness EXTREMITIES : Minimal LE swelling, no LE tenderness, no other conspicuous deformities noted NEUROLOGIC : Coherent, no facial asymmetry, no other gross focality Principal Dx & Hospital Course #1 = Principal Diagnosis (1) Sepsis: SECONDARY TO LEFT-SIDED EMPYEMA, PARAPNEUMONIC EFFUSION HISTORY OF BRONCHIAL ASTHMA Status post pigtail catheter insertion, left lung January 30, 2023 Blood cultures: Negative x2 days Pleural fluid culture: No growth to date Pigtail catheter still draining around [address] chest today: 1. Decreased size of the left-sided empyema compared to the 01/30/2023 study. Residual empyema she is now largest posteromedially. The pigtail pleural drainage catheter is positioned several centimeters lateral to the residual f luid collection. 2. Small left-sided pneumothorax. 3. Mild likely reactive mediastinal and hilar lymphadenopathy again noted. 4. Improved aeration of the left lower lobe with persistent consolidation and volume loss. 5. Hepatic steatosis with hepatomegaly. Discussed with pulmonary service recommended to transfer patient to [facility] for VATS procedure Discussed with Dr. Sandy and [facility] They have kindly accepted the patient for transfer Accepting physician is Dr. Jha Hemoglobin 14-->13--> 12 Continue IV Unasyn day #6 Pigtail catheter management per pulmonary service Pain control As needed nebs GENERALIZED ABDOMINAL DISCOMFORT, WITH DIARRHEA Reports diarrhea for the past few weeks CT abdomen pelvis: 1. Diarrhea is seen without other acute abnormalities. 2. Hepatic steatosis. 3. Please see CT chest performed same day for findings below the diaphragm. Stool for PCR and C. difficile ordered Protonix IV ordered HEPATIC STEATOSIS WITH HEPATOMEGALY. Please follow-up as an outpatient HYPOKALEMIA Potassium 3.5 Replace HTN BP stable hx ASD hx eosinophilic esophagitis/GERD prediabetes, hemoglobin A1c 5.6 anxiety/mood disorder, at baseline DVT prophylaxis. Lovenox subcu Full code plan of care discussed with patient in detail all questions answered He is understanding, agreeable, comfortable with the plan of care Discharge Exam General- oriented x 3, not in distress, speaks in sentences with no effort or accessory muscle use Eyes- anicteric Neck- no JVD Lungs-mild decreased breath sounds at the left base, clear on the right Pigtail catheter on the left chest wall: With very small leakage of serosanguineous fluid Heart- normal rate, regular rhythm; no murmurs Abdomen- normal bowel sounds, nondistended, soft, mild generalized tenderness Extremities- no pretibial edema, no calf tenderness Neuro- alert, oriented x 3; no gross focal neurologic deficits Skin- warm & dry Updated Medication List Medication Instructions Recorded Confirmed Type albuterol sulfate 2.5 mg/3 mL 2.5 mg (3 mL) inhalation Q4H PRN 12/06/01/30/23 Rx (0.083 %) solution for nebulization shortness of breath or wheezing #180 mL albuterol sulfate 90 mcg/actuation 2 puffs inhalation QID PRN 12/06/01/30/23 Rx aerosol inhaler (Ventolin HFA) shortness of breath or wheezing #18 grams buspirone 10 mg tablet 10 mg PO TID 01/30/23 01/30/23 History cyclobenzaprine 10 mg tablet 10 mg PO TID PRN Spasms 01/30/23 01/30/23 History gabapentin 300 mg capsule 300 mg PO TID 01/30/23 01/30/23 History mirtazapine 15 mg disintegrating 15 mg translingual HS 01/30/23 01/30/23 History tablet naltrexone 50 mg tablet 50 mg PO DAILY 01/30/23 01/30/23 History ondansetron 4 mg disintegrating 4 mg translingual BID PRN Nausea 01/30/23 01/30/23 History tablet morphine 4 mg/mL intravenous 4 mg IV Q3H PRN pain #10 mL 02/04/23 Rx syringe sennosides 8.6 mg-docusate sodium 1 tab PO QAM #30 tabs 02/04/23 Rx 50 mg tablet (Senokot-S) Hospital Stay Data Consultations 01/30/23 02:21 ED Decision to Admit Stat 01/30/23 03:12 Consult Pulmonology Routine 02/04/23 16:11 Burn CD for patient Stat Diagnostic Imagining Performed Laboratory Results WBC 6.52 K/ul (4.8-10.8) 02/04/23 05:38 RBC 4.17 M/uL (4.70-6.10) L 02/04/23 05:38 Hgb 12.6 g/dl (14.0-18.0) L 02/04/23 05:38 Hct 38.0 % (42.0-52.0) L 02/04/23 05:38 MCV 91.1 fL (80.0-100.0) 02/04/23 05:38 MCH 30.2 pg (25.0-34.0) 02/04/23 05:38 MCHC 33.2 g/dL (32.0-36.0) 02/04/23 05:38 RDW Std Deviation 46.8 fL (36.4-46.3) H 02/04/23 05:38 RDW Coeff of Pacheco 13.9 % (11.5-14.5) 02/04/23 05:38 Plt Count 365 K/uL (130-400) 02/04/23 05:38 MPV 10.2 fL (9.4-12.4) 02/04/23 05:38 Immature Gran % (Auto) 5.2 % 02/04/23 05:38 Neut % (Auto) 55.8 % 02/04/23 05:38 Lymph % (Auto) 21.6 % 02/04/23 05:38 Elliott % (Auto) 13.0 % 02/04/23 05:38 Eos % (Auto) 4.1 % 02/04/23 05:38 Baso % (Auto) 0.3 % 02/04/23 05:38 Neut # (Auto) 3.63 K/uL (1.40-6.50) 02/04/23 05:38 Lymph # (Auto) 1.41 K/uL (1.2-3.4) 02/04/23 05:38 Elliott # (Auto) 0.85 K/uL (0.11-0.59) H 02/04/23 05:38 Eos # (Auto) 0.27 K/uL (0-0.50) 02/04/23 05:38 Baso # (Auto) 0.02 K/uL (0-0.2) 02/04/23 05:38 Immature Gran # (Auto) 0.34 K/uL (0.01-0.20) H 02/04/23 05:38 PT 12.4 Seconds (9.0-12.0) H 01/30/23 03:57 INR 1.1 (0.9-1.1) 01/30/23 03:57 Sodium 133 mmol/L (136-145) L 02/04/23 05:38 Potassium 3.5 mmol/L (3.5-5.1) 02/04/23 05:38 Chloride 101 mmol/L (98-107) 02/04/23 05:38 Carbon Dioxide 26 mmol/L (21-32) 02/04/23 05:38 Anion Gap 6 (3-11) 02/04/23 05:38 BUN 2 mg/dl (6-23) L 02/04/23 05:38 Creatinine 0.78 mg/dl (0.6-1.4) 02/04/23 05:38 Est Cr Clr Drug Dosing 214.8 ml/min 02/04/23 05:38 Est GFR ( Amer) 143.4 ml/min 02/04/23 05:38 Est GFR (Non-Af Amer) 123.7 ml/min 02/04/23 05:38 BUN/Creatinine Ratio 2.6 (10-20) L 02/04/23 05:38 Glucose 110 mg/dl (70-99(Fasting)) H 02/04/23 05:38 Estimat Average Glucose 114 mg/dl 01/30/23 03:57 Hemoglobin A1c 5.6 % (4.5-5.6) 01/30/23 03:57 Osmolality 271 mOsm/kg (280-300) L 01/30/23 03:57 Lactate 1.3 mmol/L (0.4-2.0) 01/30/23 03:57 Calcium 7.9 mg/dl (8.6-10.3) L 02/04/23 05:38 Magnesium 2.0 mg/dl (1.7-2.4) 01/31/23 09:23 Total Bilirubin 0.7 mg/dl (0.2-1.0) 01/29/23 22:00 AST 42 U/L (13-39) H 01/29/23 22:00 ALT 29 U/L (7-52) 01/29/23 22:00 Alkaline Phosphatase 59 U/L (34-104) 01/29/23 22:00 Total Protein 7.5 gm/dl (6.0-8.3) 01/29/23 22:00 Albumin 3.5 gm/dl (3.4-5.0) 01/29/23 22:00 Globulin 4.0 gm/dl (2.5-4.0) 01/29/23 22:00 Albumin/Globulin Ratio 0.9 (0.9-2) 01/29/23 22:00 Procalcitonin 0.16 ng/ml (0-0.5) 02/04/23 08:32 TSH 6.091 uIu/ml (0.300-4.500) H 01/30/23 03:57 Free T4 1.07 ng/dl (0.61-1.60) 01/30/23 03:57 Urine Color Yellow 01/30/23 08:44 Urine Appearance Clear (Clear) 01/30/23 08:44 Urine pH 6.5 (4.5-7.5) 01/30/23 08:44 Ur Specific [place] > 1.045 (1.000-1.030) H 01/30/23 08:44 Urine Protein Trace (Negative) H 01/30/23 08:44 Urine Glucose (UA) Negative (Negative) 01/30/23 08:44 Urine Ketones Negative (Negative) 01/30/23 08:44 Urine Blood Negative (Negative) 01/30/23 08:44 Urine Nitrite Negative (Negative) 01/30/23 08:44 Urine Bilirubin Negative (Negative) 01/30/23 08:44 Urine Urobilinogen Negative (Negative) 01/30/23 08:44 Ur Leukocyte Esterase Negative (Negative) 01/30/23 08:44 Urine WBC (Auto) 1-5 /hpf (0-5) 01/30/23 08:44 Urine RBC (Auto) 0-4 /hpf (0-4) 01/30/23 08:44 U Hyaline Cast (Auto) 0 /lpf (0-5) 01/30/23 08:44 U Epithel Cells (Auto) 20-30 /lpf (0-5) H 01/30/23 08:44 Urine Bacteria (Auto) Negative (Negative) 01/30/23 08:44 Fluid Neutrophils % 87 % 01/30/23 08:25 Fluid Lymphocytes % 2 % 01/30/23 08:25 Fluid [place]/Elliott % 11 % 01/30/23 08:25 Fluid Comment 01/30/23 08:25 Pleural Fluid Source Left Lung 01/30/23 08:25 Pleural Color Fabi 01/30/23 08:25 Pleural Appearance Cloudy 01/30/23 08:25 Pleural pH 7.37 (7.3-7.4) 01/30/23 08:25 Pleural WBC (Auto) 4770 /uL 01/30/23 08:25 Pleural RBC (Auto) 03392 /uL 01/30/23 08:25 Pleural Total Protein 4.9 gm/dl 01/30/23 08:25 Pleural LDH 905 U/L 01/30/23 08:25 Pleural Glucose 67 mg/dl 01/30/23 08:25 Nasal Screen MRSA (PCR) Negative (Negative) 01/30/23 04:55 Stl C. cayetanensis PCR Cancelled 02/04/23 Unknown Stool Rotavirus A PCR Cancelled 02/04/23 Unknown Stl Adenov F 40/41 PCR Cancelled 02/04/23 Unknown Stool Astrovirus (PCR) Cancelled 02/04/23 Unknown Stool Campylobacter PCR Cancelled 02/04/23 Unknown Stool Cryptosporidium PCR Cancelled 02/04/23 Unknown Stl E.coli Shiga Tox PCR Cancelled 02/04/23 Unknown Stool E coli O157 PCR Cancelled 02/04/23 Unknown Stl Enterotoxigenic E PCR Cancelled 02/04/23 Unknown Stool EPEC (PCR) Cancelled 02/04/23 Unknown Stool EAEC (PCR) Cancelled 02/04/23 Unknown Stl E. histolytica PCR Cancelled 02/04/23 Unknown Stool Giardia Lamblia PCR Cancelled 02/04/23 Unknown Stool Salmonella PCR Cancelled 02/04/23 Unknown Stool Sapovirus (PCR) Cancelled 02/04/23 Unknown Stl P. shigelloides PCR Cancelled 02/04/23 Unknown Stl Shigella/EIEC PCR Cancelled 02/04/[address] Y.enterocolitica PCR Cancelled 02/04/23 Unknown Stool Vibrio (PCR) Cancelled 02/04/23 Unknown Stl Vibrio cholerae PCR Cancelled 02/04/23 Unknown Stl Norovirus GI/GII PCR Cancelled 02/04/23 Unknown Ethyl Alcohol mg/dL < 10.0 mg/dl (<10.0) 01/30/23 03:57 Adenovirus (PCR) Not Detected (NotDetected) 01/30/23 02:09 B. pertussis DNA (PCR) Not Detected (NotDetected) 01/30/23 02:09 B.parapertussis DNA PCR Not Detected (NotDetected) 01/30/23 02:09 C. pneumoniae DNA (PCR) Not Detected (NotDetected) 01/30/23 02:09 Coronavirus OC43 (PCR) Not Detected (NotDetected) 01/30/23 02:09 Coronavirus HKU1 (PCR) Not Detected (NotDetected) 01/30/23 02:09 Coronavirus 229E (PCR) Not Detected (NotDetected) 01/30/23 02:09 SARS-CoV-2 (PCR) Not Detected (NotDetected) 01/30/23 02:09 Coronavirus NL63 (PCR) Not Detected (NotDetected) 01/30/23 02:09 Human Metapneumovir PCR Not Detected (NotDetected) 01/30/23 02:09 Influenza Type A (PCR) Not Detected (NotDetected) 01/30/23 02:09 Influenza Type B (PCR) Not Detected (NotDetected) 01/30/23 02:09 M. pneumoniae (PCR) Not Detected (NotDetected) 01/30/23 02:09 Parainfluenza 1 (PCR) Not Detected (NotDetected) 01/30/23 02:09 Parainfluenza 2 (PCR) Not Detected (NotDetected) 01/30/23 02:09 Parainfluenza 3 (PCR) Not Detected (NotDetected) 01/30/23 02:09 Parainfluenza 4 (PCR) Not Detected (NotDetected) 01/30/23 02:09 RSV (PCR) Not Detected (NotDetected) 01/30/23 02:09 Entero/Rhino (PCR) Not Detected (NotDetected) 01/30/23 02:09 Impressions Chest X-Ray 02/03/23 08:00 XR chest 1V portable HISTORY: Chest tube ? MIST 2 protocol COMPARISON: Chest 02/02/2023. FINDINGS: Slight improvement in the small left hydropneumothorax/empyema. The left basilar chest tube is unchanged in position. Trace left chest wall subcutaneous emphysema again noted. No right-sided pneumothorax. Right basilar linear densities favor subsegmental atelectasis. The heart remains mildly enlarged. IMPRESSION: Slight improvement in the small left hydropneumothorax. The left basilar chest tube is unchanged in position. ACT 112: Negative or not required by law. Electronically signed by: Levi Nascimento M.D. 02/03/2023 7:[address] 02/04/23 08:15 CT chest diagnostic wo con CT DOSE: 2984.98 mGy.cm CLINICAL HISTORY: 27 years-old Male with Follow-up empyema. Acute shortness of breath TECHNIQUE: Multiaxial CT images of the chest were performed without contrast. A dose lowering technique was utilized adhering to the principles of ALARA. COMPARISON: CT abdomen and pelvis of same day, chest CT 01/30/2023 FINDINGS: Unremarkable thyroid. Borderline enlarged mediastinal and hilar lymph nodes measuring up to 10 mm appear stable. The heart is normal in size without pericardial effusion. Unremarkable thoracic aorta. Mild subsegmental left greater than right bibasilar atelectasis. Consolidation and volume loss within the left lower lobe again noted however there is improved aeration compared to the prior study. Loculated complex left-sided pleural effusion has decreased in size from prior and is largest posteriorly. Small left-sided pneumothorax component with pleural separation measuring up to 8 mm anterolaterally. Loculated air and fluid filled collection within the posterior medial left hemithorax measures up to 4.7 x 9.8 x 20 cm. A pigtail drainage c atheter is noted with distal tip in the left pleural space at the level of the left lung base. Pleural thickening is noted throughout the left chest wall. This is located approximately 6.5 cm from the center of the residual empyema. Subcutaneous emphysema deep tissue air left chest wall. Hepatomegaly with hepatic steatosis. Cholecystectomy. No acute process of the imaged upper abdomen. Nonspecific subcutaneous edema of the right anterior abdominal wall. No acute fracture identified. IMPRESSION: 1. Decreased size of the left-sided empyema compared to the 01/30/2023 study. Residual empyema she is now largest posteromedially. The pigtail pleural drainage catheter is positioned several centimeters lateral to the residual fluid collection. 2. Small left-sided pneumothorax. 3. Mild likely reactive mediastinal and hilar lymphadenopathy again noted. 4. Improved aeration of the left lower lobe with persistent consolidation and volume loss. 5. Hepatic steatosis with hepatomegaly. ACT 112: Negative or not required by law. Electronically signed by: Faustino Jefferson M.D. 02/04/2023 9:57 AM Abdomen/Pelvis CT 02/04/23 08:46 CT abd pelvis wo con CLINICAL HISTORY: abdominal pain TECHNIQUE: Helical axial images of the abdomen and pelvis were obtained. Automated dose lowering techniques and/or adjustment according to patient size were utilized for this exam. This exam was performed without intravenous contrast. COMPARISON: Comparison is made to CT abdomen pelvis 01/30/2023 FINDINGS: Lower chest: For findings above the diaphragm, please see CT chest performed same day. Liver: Hepatic steatosis is noted. Gallbladder and biliary tree: Patient is status post cholecystectomy. No intra- or extrahepatic biliary ductal dilation. Pancreas: Unremarkable, no focal lesions. Spleen: Unremarkable. Adrenals: Unremarkable. Kidneys and ureters: Nonobstructive nephrolithiasis is seen. Bladder: Unremarkable. Reproductive organs: Unremarkable. Bowel: Gas and liquid contents are seen in the colon. Lymph nodes Retroperitoneal: Unremarkable. Pelvic: Unremarkable. Mesenteric: Unremarkable. Peritoneum: Normal. Vessels: Unremarkable. Abdominal wall: Edema is seen in the right anterior abdominal wall. There is an umbilical hernia. Bones: Degenerative changes in the visualized spine. IMPRESSION: 1. Diarrhea is seen without other acute abnormalities. 2. Hepatic steatosis. 3. Please see CT chest performed same day for findings below the diaphragm. ACT 112: Negative or not required by law. Electronically signed by: Froilan Galvan M.D. 02/04/2023 12:29 PM 01/29/23 23:22 CT abd pelvis IV con only Stat 01/30/23 03:00 CT chest diagnostic wo con Stat 02/04/23 08:15 CT chest diagnostic wo con Routine 02/04/23 08:46 CT Abd and Pelvis [CT abd pelvis wo con] Routine Pending Results Patient Have Any Pending Studies at Discharge: Yes Discharge Instructions Given to Patient (Per Discharging Provider) Refer to accompanying hospital discharge summary Total Time Total Time Spent Total Time Spent (In Minutes): >30 minutes
== END 2023-02-04 18:48 | disposition short-term general hospital (02) | DRG 871 ==
LOC: ED 21:25 → EDINP 01-30 02:54 → 2S 01-30 03:12

== ENCOUNTER 2023-02-10 18:33 | Inpatient (IN) ==
[2023-02-10] MEDS ORDERED: SODIUM CHLORIDE 0.9% 1000ML 500 ML IV ONE (19:39)
[2023-02-10] MEDS ORDERED: methylPREDNISolone 125 MG/2 ML VIAL IV STA (19:39)
[2023-02-10] MEDS ORDERED: ALBUT/IPRATROP 3MG/0.5MG NEB 3 ML VIAL NEB STA (19:39)
--- NOTE | 2023-02-10 19:53 | Emergency Department Note ---
Impression & Plan SOB (shortness of breath), Pneumothorax, Wheezing, Tachycardia, History of chest tube placement ED Provider Note NAME: LEONORA SHEARER AGE: 27 SEX: M : 1995 ARRIVES VIA: Walk-In INFORMANT: [Patient] ED PROVIDER(S): [Avelino Cordoba MD] CHIEF COMPLAINT: Chest pain HISTORY OF PRESENT ILLNESS: The patient is a 27-year-old male who states that 3 days ago, he was discharged from [facility] in [place]. He had been at our facility before being transferred to [facility]. He had been admitted for empyema. He had a chest tube in place for 3 days while at [facility]. He had a chest tube in place at our facility as well before being sent to [facility]. [facility] removed the [place] chest tube and placed a new chest tube that was to drain a second pocket of fluid. The patient states that no bacteria grew from the fluid collected at our hospital or at [facility]. The patient states that he is on Augmentin now and is to take this for 1 month. The patient states that last night into today, he has felt more short of breath and his left chest is tight. He has tried a nebulizer every 4 hours. He is concerned that he has reaccumulated fluid. The patient is not currently on any steroids. He is moving his bowels in fact, he has diarrhea more so than anything. He has no fever, he is coughing slightly but nothing of worry. He does not have a stuffy nose or sore throat. PMHx/PSHx: See Below SOCIAL HISTORY: See Below. PHYSICAL EXAM: GENERAL: Patient is in no acute distress. HEENT: No acute trauma, normocephalic atraumatic, mucous membranes moist, no nasal congestion. NECK: No stridor, no adenopathy, no meningismus, trachea is midline. LUNGS: Diminished breath sounds with wheezing bilaterally, he has equal breath sounds bilaterally, no rhonchi. HEART: Mildly tachycardic, regular rhythm, no murmurs. ABDOMEN: Soft, nontender, bowel sounds positive, no peritonitis. EXTREMITIES: No cyanosis, mild bilateral pedal edema, full range of motion of all the joints without pain or difficulty, no signs for acute trauma. NEUROLOGIC: Oriented x 3, no acute motor or sensory deficits, no focal weakness. SKIN: No rash, no jaundice, no diaphoresis. DIFFERENTIAL DIAGNOSIS: Exacerbation of asthma, pneumonia, bronchitis, pneumothorax, pleural effusion, viral illness, anemia, electrolyte imbalance, among others. EMERGENCY DEPARTMENT COURSE/PROCEDURES: Prior/Outside records reviewed: Recent discharge summary. ECG per my interpretation: Indication was shortness of breath. The ECG shows a sinus tachycardia with a rate of 107. There is no ST elevation, no PVCs. The QTc is 445 Continuous Cardiac Monitoring per my interpretation: An order was placed for continuous cardiac monitoring. The monitor shows a rate of 105 with sinus tachycardia. MEDICAL DECISION MAKING: There is no leukocytosis. There is a mild anemia with a hemoglobin of 13.1. Platelet count was somewhat elevated at 453. No concerning coagulopathy. No renal failure or significant electrolyte abnormality. Lactic acid level is not elevated making sepsis less likely. No worrisome liver enzyme elevation. ECG showed a sinus tachycardia, no ischemia. Cardiac enzyme testing x1 was not consistent with acute cardiac injury. Respiratory bio fire was completely negative. Chest film per my review shows a trace pneumothorax on the left. There was no focal pneumonia. No CHF. I did not see a significant amount of pleural fluid. On exam, the patient was wheezing bilaterally with diminished breath sounds. He was tachycardic. The patient was given a DuoNeb, IV Solu-Medrol. He received a 500 cc saline bolus. The patient looks and feels improved. Given the findings on his chest x-ray, given his recent chest tube placement, I do think the patient requires a hos pital stay. We need to ensure that his breathing improves, we need to ensure that the pneumothorax does not expand. The patient was in agreement with the hospitalization. I did speak with case management, the on-call hospitalist was consulted. DISPOSITION: Patient's presentation and findings warrant a hospital stay. Past Med/Surg History Medical History Anxiety and depression Asthma last exacerbation > 3 months ago, rescue inhaler use daily in the morning and HS Cervical radiculopathy Environmental and seasonal allergies Eosinophilic esophagitis GERD (gastroesophageal reflux disease) no current medications, controlled per pt History of atrial septal defect "spontaneous ASD closure on echo 12/1998" History of COVID-19 06/14/20-denies residual issues Hypertension controlled, stable per pt Post traumatic stress disorder denies concerns regarding upcoming surgery, OR room securing restraints/claustrophobia Pre-diabetes pt denies, states was on metformin and then d/c by PCP. Pre-op A1c 5.1% Sleep apnea not currently on treatment Tachycardia reports intermittent history, denies palpitations, dizziness, lightheadedness Temporomandibular joint disorder JAW CLICKING/has locked twice-last 3 yrs ago-unrelated to procedure per pt Surgical History Family history of reaction to anesthesia FATHER-WAKES UP IN MIDDLE OF PROCEDURE History of anesthesia reaction WAKES UP WITH ANESTHESIA-endoscopy History of appendectomy History of bronchoscopy MULTIPLE TIMES History of colonoscopy History of esophagogastroduodenoscopy (EGD) History of [place] fundoplication 2009 AT [place] Hx laparoscopic cholecystectomy [facility]Y [facility] Family History Grandfather (Maternal) Family history of diabetes mellitus Social History Smoking Status: Never smoker Tobacco Type: Smokeless Tobacco (Dip or Chew) Second Hand Exposure: No; Do You Dip or Chew Tobacco: Yes ("rarely"); Hx Alcohol Use: Yes Alcohol type: hard liquor Hx Substance Use: No Preferred Language: Italian Communication Ability: Effective Family Coach Required: No Beliefs That Will Affect Care: None Current Living Situation: Alone Feels Safe at Home: Yes Assistive Devices: None Allergies Allergies Allergy/AdvReac Type Severity Reaction Status Date / Time nitroglycerin Allergy Severe TROUBLE Verified 02/10/23 20:50 BREATHING Sulfa (Sulfonamide Allergy Intermediate EYES Verified 02/10/23 20:50 Antibiotics) SWELLING/WITH EYE DROPS sulfamethoxazole Allergy Intermediate EYES Verified 02/10/23 20:50 SWELLING trimethoprim Allergy Intermediate EYES Verified 02/10/23 20:50 SWELLING Bactrim Allergy Unknown UNK Verified 11/16/15 23:40 Home Meds Home Medications Medication Instructions Recorded Confirmed buspirone 10 mg tablet 10 mg PO TID 01/30/23 02/10/23 cyclobenzaprine 10 mg tablet 10 mg PO TID PRN Spasms 01/30/23 02/10/23 gabapentin 300 mg capsule 300 mg PO TID 01/30/23 02/10/23 mirtazapine 15 mg disintegrating 15 mg translingual HS 01/30/23 02/10/23 tablet naltrexone 50 mg tablet 50 mg PO DAILY 01/30/23 02/10/23 ondansetron 4 mg disintegrating 4 mg translingual BID PRN Nausea 01/30/23 02/10/23 tablet amoxicillin 875 mg-potassium 1 tab PO BID 02/10/23 02/10/23 clavulanate 125 mg tablet Previous Rx's Medication Instructions Recorded albuterol sulfate 2.5 mg/3 mL 2.5 mg (3 mL) inhalation Q4H PRN 12/07/19 (0.083 %) solution for nebulization shortness of breath or wheezing #180 mL albuterol sulfate 90 mcg/actuation 2 puffs inhalation QID PRN 12/07/19 aerosol inhaler (Ventolin HFA) shortness of breath or wheezing #18 grams sennosides 8.6 mg-docusate sodium 1 tab PO QAM #30 tabs 02/04/23 50 mg tablet (Senokot-S) Results & Data (ED) Vital Signs Vital Signs - 24 hr 02/10/23 18:43 02/10/23 20:09 02/10/23 19:46 Temperature 36.8 C Temperature Source Temporal Artery Scan Pulse Rate 104 H 99 H Pulse Rate from SpO2 Sensor 100 H Respiratory Rate 18 18 Respiratory Effort / Characteristics Non-Labored Respiratory Depth Normal Blood Pressure 142/93 H Blood Pressure Mean 109 Pulse Oximetry 99 100 100 Oxygen Delivery Method Room Air Room Air Room Air Sepsis Recent Fever Within 48 Hours No Sepsis New/Unexplained Change in Mental Status No Sepsis Action Taken by Nursing No Action Required 02/10/23 19:50 02/10/23 20:00 02/10/23 20:10 Temperature Temperature Source Pulse Rate 101 H 96 H 92 H Pulse Rate from SpO2 Sensor 98 H 98 H 92 H Respiratory Rate 13 13 16 Respiratory Effort / Characteristics Respiratory Depth Blood Pressure Blood Pressure Mean Pulse Oximetry 96 97 100 Oxygen Delivery Method Room Air Room Air Room Air Sepsis Recent Fever Within 48 Hours Sepsis New/Unexplained Change in Mental Status Sepsis Action Taken by Nursing 02/10/23 20:20 02/10/23 19:47 Temperature Temperature Source Pulse Rate 103 H 98 H Pulse Rate from SpO2 Sensor 105 H Respiratory Rate 20 Respiratory Effort / Characteristics Respiratory Depth Blood Pressure Blood Pressure Mean Pulse Oximetry 97 Oxygen Delivery Method Room Air Sepsis Recent Fever Within 48 Hours Sepsis New/Unexplained Change in Mental Status Sepsis Action Taken by Usp Medications Current Medication List: was personally reviewed by me Laboratory Data Attestation: I reviewed the patient's lab results. 02/10/23 20:17 02/10/23 20:17 Lab Results 02/10/23 02/10/23 02/10/23 Range/Units 20:05 20:17 20:17 WBC 5.99 (4.8-10.8) K/ul RBC 4.31 L (4.70-6.10) M/uL Hgb 13.1 L (14.0-18.0) g/dl Hct 39.8 L (42.0-52.0) % MCV 92.3 (80.0-100.0) fL MCH 30.4 (25.0-34.0) pg MCHC 32.9 (32.0-36.0) g/dL RDW Std Deviation 47.7 H (36.4-46.3) fL RDW Coeff of Pacheco 14.0 (11.5-14.5) % Plt Count 453 H (130-400) K/uL MPV 9.9 (9.4-12.4) fL Immature Gran % (Auto) 0.8 % Neut % (Auto) 65.6 % Lymph % (Auto) 25.0 % [place] % (Auto) 4.5 % Eos % (Auto) 3.8 % Baso % (Auto) 0.3 % Neut # (Auto) 3.92 (1.40-6.50) K/uL Lymph # (Auto) 1.50 (1.2-3.4) K/uL [place] # (Auto) 0.27 (0.11-0.59) K/uL Eos # (Auto) 0.23 (0-0.50) K/uL Baso # (Auto) 0.02 (0-0.2) K/uL Immature Gran # (Auto) 0.05 (0.01-0.20) K/uL PT 12.2 H (9.0-12.0) Seconds INR 1.1 (0.9-1.1) APTT 26.7 (21.0-31.0) Seconds PTT Ratio 0.9 Sodium (136-145) mmol/L Potassium (3.5-5.1) mmol/L Chloride (98-107) mmol/L Carbon Dioxide (21-32) mmol/L Anion Gap (3-11) BUN (6-23) mg/dl Creatinine (0.6-1.4) mg/dl Est Cr Clr Drug Dosing ml/min Est GFR ( Amer) ml/min Est GFR (Non-Af Amer) ml/min BUN/Creatinine Ratio (10-20) Glucose (70-99(Fasting)) mg/dl Lactate (0.4-2.0) mmol/L Calcium (8.6-10.3) mg/dl Magnesium (1.7-2.4) mg/dl Total Bilirubin (0.2-1.0) mg/dl AST (13-39) U/L ALT (7-52) U/L Alkaline Phosphatase (34-104) U/L Troponin I High Sens (0-20) pg/ml Total Protein (6.0-8.3) gm/dl Albumin (3.4-5.0) gm/dl Globulin (2.5-4.0) gm/dl Albumin/Globulin Ratio (0.9-2) Adenovirus (PCR) Not Detected (NotDetected) B. pertussis DNA (PCR) Not Detected (NotDetected) B.parapertussis DNA PCR Not Detected (NotDetected) C. pneumoniae DNA (PCR) Not Detected (NotDetected) Coronavirus OC43 (PCR) Not Detected (NotDetected) Coronavirus HKU1 (PCR) Not Detected (NotDetected) Coronavirus 229E (PCR) Not Detected (NotDetected) SARS-CoV-2 (PCR) Not Detected (NotDetected) Coronavirus NL63 (PCR) Not Detected (NotDetected) Human Metapneumovir PCR Not Detected (NotDetected) Influenza Type A (PCR) Not Detected (NotDetected) Influenza Type B (PCR) Not Detected (NotDetected) M. pneumoniae (PCR) Not Detected (NotDetected) Parainfluenza 1 (PCR) Not Detected (NotDetected) Parainfluenza 2 (PCR) Not Detected (NotDetected) Parainfluenza 3 (PCR) Not Detected (NotDetected) Parainfluenza 4 (PCR) Not Detected (NotDetected) RSV (PCR) Not Detected (NotDetected) Entero/Rhino (PCR) Not Detected (NotDetected) 02/10/23 02/10/23 Range/Units 20:17 20:17 WBC (4.8-10.8) K/ul RBC (4.70-6.10) M/uL Hgb (14.0-18.0) g/dl Hct (42.0-52.0) % MCV (80.0-100.0) fL MCH (25.0-34.0) pg MCHC (32.0-36.0) g/dL RDW Std Deviation (36.4-46.3) fL RDW Coeff of Pacheco (11.5-14.5) % Plt Count (130-400) K/uL MPV (9.4-12.4) fL Immature Gran % (Auto) % Neut % (Auto) % Lymph % (Auto) % [place] % (Auto) % Eos % (Auto) % Baso % (Auto) % Neut # (Auto) (1.40-6.50) K/uL Lymph # (Auto) (1.2-3.4) K/uL [place] # (Auto) (0.11-0.59) K/uL Eos # (Auto) (0-0.50) K/uL Baso # (Auto) (0-0.2) K/uL Immature Gran # (Auto) (0.01-0.20) K/uL PT (9.0-12.0) Seconds INR (0.9-1.1) APTT (21.0-31.0) Seconds PTT Ratio Sodium 136 (136-145) mmol/L Potassium 3.7 (3.5-5.1) mmol/L Chloride 102 (98-107) mmol/L Carbon Dioxide 27 (21-32) mmol/L Anion Gap 7 (3-11) BUN 3 L (6-23) mg/dl Creatinine 1.01 (0.6-1.4) mg/dl Est Cr Clr Drug Dosing 159.4 ml/min Est GFR ( Amer) 117.6 ml/min Est GFR (Non-Af Amer) 101.5 ml/min BUN/Creatinine Ratio 3.0 L (10-20) Glucose 87 (70-99(Fasting)) mg/dl Lactate 1.2 (0.4-2.0) mmol/L Calcium 9.1 (8.6-10.3) mg/dl Magnesium 2.1 (1.7-2.4) mg/dl Total Bilirubin 0.5 (0.2-1.0) mg/dl AST 39 (13-39) U/L ALT 24 (7-52) U/L Alkaline Phosphatase 72 (34-104) U/L Troponin I High Sens 4.2 (0-20) pg/ml Total Protein 7.2 (6.0-8.3) gm/dl Albumin 3.5 (3.4-5.0) gm/dl Globulin 3.7 (2.5-4.0) gm/dl Albumin/Globulin Ratio 0.9 (0.9-2) Adenovirus (PCR) (NotDetected) B. pertussis DNA (PCR) (NotDetected) B.parapertussis DNA PCR (NotDetected) C. pneumoniae DNA (PCR) (NotDetected) Coronavirus OC43 (PCR) (NotDetected) Coronavirus HKU1 (PCR) (NotDetected) Coronavirus 229E (PCR) (NotDetected) SARS-CoV-2 (PCR) (NotDetected) Coronavirus NL63 (PCR) (NotDetected) Human Metapneumovir PCR (NotDetected) Influenza Type A (PCR) (NotDetected) Influenza Type B (PCR) (NotDetected) M. pneumoniae (PCR) (NotDetected) Parainfluenza 1 (PCR) (NotDetected) Parainfluenza 2 (PCR) (NotDetected) Parainfluenza 3 (PCR) (NotDetected) Parainfluenza 4 (PCR) (NotDetected) RSV (PCR) (NotDetected) Entero/Rhino (PCR) (NotDetected) Administered Medications Discontinued Medications Albuterol (Albut/Ipratrop 3mg/0.5mg Neb 3 Ml Vial) 3 ml NEB NOW STA; Protocol Stop: 02/10/23 19:40 Last Admin: 02/10/23 19:57 Dose: 3 ml Documented By: Sodium Chloride (Nss 1000ml) 500 mls @ 999 mls/hr IV .Q31M ONE Stop: 02/10/23 20:09 Last Infusion: 02/10/23 21:21 Dose: 0 mls/hr Documented By: Admin: 02/10/23 19:57 Dose: 999 mls/hr Documented By: Methylprednisolone (Methylprednisolone 125 Mg/2 Ml Vial) 125 mg IV NOW STA Stop: 02/10/23 19:40 Last Admin: 02/10/23 19:57 Dose: 125 mg Documented By: Imaging Data Radiologist's Impression: Chest X-Ray 02/10/23 18:48 SINGLE VIEW CHEST CLINICAL HISTORY: Atypical chest pain. FINDINGS: An AP, portable, upright chest radiograph is compared to study dated 02/03/2023 and correlated with chest CT dated 02/04/2023. The cardiomediastinal silhouette is unremarkable. A left-sided chest tube has been removed. There is a small pneumothorax seen on the left lateral pleural space with approximately 7 mm pleural separation. There is trace left pleural effusion. Linear atelectasis is seen in the left midlung. The right lung is clear. No pneumothorax is seen on the right. The bony thorax is grossly intact. IMPRESSION: 1. A left-sided chest tube has been removed. 2. There is a small lateral pneumothorax on the left. 3. Trace left pleural effusion. ACT 112: Negative or not required by law. Electronically signed by: Avelino Griffin M.D. 02/10/2023 8:27 PM Discharge Plan Visit Data Chief Complaint: Chest Pain Stated Complaint: SOB, CHEST PAIN, DIZZY, NAUSEA ED Provider: Avelino Cordoba Discharge Problem: SOB (shortness of breath), Pneumothorax, Wheezing, Tachycardia, History of chest tube placement Patient Disposition: Admitted As Inpatient Condition: Fair Forms Stand Alone Forms: [employer] [facility] [employer] Prescriptions Prescriptions: No Action albuterol sulfate 2.5 mg /3 mL (0.083 %) solution for nebulization 2.5 mg INH Q4H PRN (Reason: shortness of breath or wheezing) Qty: 180 5RF albuterol sulfate [Ventolin HFA] 90 mcg/actuation HFA aerosol inhaler 2 puffs INH QID PRN (Reason: shortness of breath or wheezing) Qty: 18 5RF ondansetron 4 mg tablet,disintegrating 4 mg translingual BID PRN (Reason: Nausea) cyclobenzaprine 10 mg tablet 10 mg PO TID PRN (Reason: Spasms) naltrexone 50 mg tablet 50 mg PO DAILY buspirone 10 mg tablet 10 mg PO TID mirtazapine 15 mg tablet,disintegrating 15 mg translingual HS gabapentin 300 mg capsule 300 mg PO TID sennosides-docusate sodium [Senokot-S] 8.6-50 mg Tablet 1 tab PO QAM Qty: 30 0RF amoxicillin-pot clavulanate 875-125 mg tablet 1 tab PO BID Referrals Referrals: Lorenza Mcdonough DO [Primary Care Provider] -
--- NOTE | 2023-02-10 20:29 | XRay Report ---
SINGLE VIEW CHEST CLINICAL HISTORY: Atypical chest pain. FINDINGS: An AP, portable, upright chest radiograph is compared to study dated 02/03/2023 and correlat ed with chest CT dated 02/04/2023. The cardiomediastinal silhouette is unremarkable. A left-sided ches t tube has been removed. There is a small pneumothorax seen on the left lateral pleural space with ap proximately 7 mm pleural separation. There is trace left pleural effusion. Linear atelectasis is seen in the left midlung. The right lung is clear. No pneumothorax is seen on the right. The bony thorax is grossly intact. IMPRESSION: 1. A left-sided chest tube has been removed. 2. There is a small lateral pneumothorax on the left. 3. Trace left pleural effusion. ACT 112: Negative or not required by law. Electronically signed by: Avelino Griffin M.D. 02/10/2023 8:27 PM
[2023-02-10 20:46] LABS: Basophils # (auto) 0.02 K/uL (0-0.2); Basophils % (auto) 0.3 %; Eosinophils # (auto) 0.23 K/uL (0-0.50); Eosinophils % (auto) 3.8 %; Hematocrit (blood only) 39.8 % (42.0-52.0); Hemoglobin 13.1 g/dl (14.0-18.0); Immature Granulocytes # (auto) 0.05 K/uL (0.01-0.20); Immature Granulocytes % (auto) 0.8 %; Mean Corpuscular Hemoglobin 30.4 pg (25.0-34.0); Mean Corpuscular Hgb Conc 32.9 g/dL (32.0-36.0); Mean Corpuscular Volume 92.3 fL (80.0-100.0); Mean Platelet Volume 9.9 fL (9.4-12.4); Monocytes # (auto) 0.27 K/uL (0.11-0.59); Monocytes % (auto) 4.5 %; Neutrophils # (auto) 3.92 K/uL (1.40-6.50); Neutrophils % (auto) 65.6 %; Platelet Count 453 K/uL (130-400); RDW Standard Deviation 47.7 fL (36.4-46.3); Red Blood Count 4.31 M/uL (4.70-6.10); White Blood Count 5.99 K/ul (4.8-10.8)
[2023-02-10 21:10] LABS: Albumin Globulin Ratio 0.9 (0.9-2); Albumin Level 3.5 gm/dl (3.4-5.0); Bilirubin,Total 0.5 mg/dl (0.2-1.0); Calcium 9.1 mg/dl (8.6-10.3); Creatinine Clr Calc Pharmacy 159.4 ml/min; Est GFR (African American) 117.6 ml/min; Est GFR (Non-African American) 101.5 ml/min; Globulin 3.7 gm/dl (2.5-4.0); Magnesium 2.1 mg/dl (1.7-2.4); Potassium 3.7 mmol/L (3.5-5.1); Total Protein 7.2 gm/dl (6.0-8.3)
[2023-02-10 21:16] LABS: Troponin I High Sensitivity 4.2 pg/ml (0-20)
[2023-02-10 21:24] LABS: INR 1.1 (0.9-1.1); Partial Thromboplastin Ratio 0.9; Partial Thromboplastin Time 26.7 Seconds (21.0-31.0); Prothrombin Time 12.2 Seconds (9.0-12.0)
[2023-02-10 21:35] LABS: Adenovirus PCR Not Detected (NotDetected); Bordetella parapertussis PCR Not Detected (NotDetected); Bordetella pertussis PCR Not Detected (NotDetected); Chlamydia pneumoniae PCR Not Detected (NotDetected); Coronavirus 229E PCR Not Detected (NotDetected); Coronavirus CoV-2 (COVID19)PCR Not Detected (NotDetected); Coronavirus HKU1 PCR Not Detected (NotDetected); Coronavirus NL63 PCR Not Detected (NotDetected); Coronavirus OC43PCR Not Detected (NotDetected); Human Metapneumovirus PCR Not Detected (NotDetected); Influenza A PCR Not Detected (NotDetected); Influenza B PCR Not Detected (NotDetected); Mycoplasma pneumoniae PCR Not Detected (NotDetected); Parainfluenza Virus 1 PCR Not Detected (NotDetected); Parainfluenza Virus 2 PCR Not Detected (NotDetected); Parainfluenza Virus 3 PCR Not Detected (NotDetected); Parainfluenza Virus 4 PCR Not Detected (NotDetected); Respiratory Syncytial VirusPCR Not Detected (NotDetected); Rhinovirus/Enterovirus PCR Not Detected (NotDetected)
--- NOTE | 2023-02-10 22:25 | History & Physical Report ---
Date of Service February 10, 2023 Assessment & Plan (1) SOB (shortness of breath): Plan: 27-year-old male with past medical significant for severe persistent asthma, insulin resistant, morbid obesity, GERD, hyperplastic polyp of ascending colon, history of cervical radiculopathy, history of depression and suicide attempt and general anxiety disorder and panic attacks presents with shortness of breath and chest tightness Shortness of breath Chest tightness Occasional wheezing on exam currently Mostly asthma exacerbation Received IV Solu-Medrol and nebs in the ER We will continue with IV Solu-Medrol 40 mg 3 times daily DuoNebs [id number] and IV Zosyn Empyema Admitted on January 30 with sepsis and empyema S/p pigtail catheter and treated with Unasyn Repeat CT scan little residual collection so transferred to [facility] for VATS procedure At [facility] interventional radiology placed a new chest tube and old catheter was taken out Fluid collection resolved. Cultures did not grow anything was discharged on Augmentin for 4 weeks and advised to follow outpatient with ID. Chest x-ray today shows small left pleural effusion and small left pneumothorax. We will consult pulmonary for further recommendations Monitoring telemetry Morbid obesity needs counseling Prediabetes We will follow HbA1c levels History of depression History of suicidal attempt Generalized anxiety disorder Panic disorder On Remeron and buspirone Dark stools Hemoglobin 13.1 We will follow stool for Hemoccult. History of ASD as per records Echo done on last admission was okay [place]-Schlatter disease per records DVT prophylaxis Lovenox for now Disposition telemetry floor Full code History of Present Illness Chief Complaint: Shortness of breath and chest tightness Primary Care Provider: Lorenza Mcdonough DO 27-year-old male with past medical significant for severe persistent asthma, insulin resistant, morbid obesity, GERD, hyperplastic polyp of ascending colon, history of cervical radiculopathy, history of depression and suicide attempt and general anxiety disorder and panic attacks presents with shortness of breath and chest tightness. Patient was admitted in January 30 to the hospital with sepsis secondary to left-sided empyema s/p pigtail catheter insertion. Pigtail catheter drained about 300 cc per records. Was on Unasyn. Cultures did not grow anything. And repeat CT showed some residual empyema posteromedially and pigtail pleural Drainage catheter was seemed to be away from collection. P atient was transferred to [facility] for VATS procedure. A new chest tube was placed by interventional radiology at [facility] and old drain was removed. The patient effusion resolved and the new drain was removed. The fluid from the cultures did not grow any organisms. Patient was discharged on Augmentin for 4- week course and to follow-up with ID as outpatient. Patient was discharged on February 07. Patient states again last night he was feeling short of breath and chest tightness.. Breathing treatments were not helping. Called PCP and advised to come to the ER. Currently resting comfortably and hemodynamic stable. Says has dry cough. Denies any fevers. Has night sweats. Currently no headache. Has some blurred visions. No earache or runny nose or sore throat. Appetite is okay. No difficulty swallowing. No nausea. Has some abdominal discomfort. Was constipated. But since patient is discharged home he had few bowel movements and states they are dark and attributes to the medication. Micturating okay. Past medical history as mentioned above. ASD and [place]-Schlatter disease per records. Past surgical history colonoscopy, EGD, EGD with biopsy, esophagogastric fundo plasty, laparoscopic cholecystectomy. Social history snuff tobacco 1 can every 2 days. Sees used to drink alcohol heavily but lately drinking occasionally, last drink was couple of weeks ago. No drug use Family history Brother has allergies, asthma. Father has allergies, asthma, hypertension. Mother has allergies, fibromyalgia. Sister has heart issue. Maternal grandmother had Crohn's disease. Allergies Allergy/AdvReac Type Severity Reaction Status Date / Time nitroglycerin Allergy Severe TROUBLE Verified 02/10/23 20:50 BREATHING Sulfa (Sulfonamide Allergy Intermediate EYES Verified 02/10/23 20:50 Antibiotics) SWELLING/WITH EYE DROPS sulfamethoxazole Allergy Intermediate EYES Verified 02/10/23 20:50 SWELLING trimethoprim Allergy Intermediate EYES Verified 02/10/23 20:50 SWELLING Bactrim Allergy Unknown UNK Verified 11/16/15 23:40 Home Medications Medication Instructions Recorded Confirmed Type albuterol sulfate 2.5 mg/3 mL 2.5 mg (3 mL) inhalation Q4H PRN 12/07/19 02/10/23 Rx (0.083 %) solution for nebulization shortness of breath or wheezing #180 mL albuterol sulfate 90 mcg/actuation 2 puffs inhalation QID PRN 12/07/19 02/10/23 Rx aerosol inhaler (Ventolin HFA) shortness of breath or wheezing #18 grams buspirone 10 mg tablet 10 mg PO TID 01/30/23 02/10/23 History cyclobenzaprine 10 mg tablet 10 mg PO TID PRN Spasms 01/30/23 02/10/23 History gabapentin 300 mg capsule 300 mg PO TID 01/30/23 02/10/23 History mirtazapine 15 mg disintegrating 15 mg translingual HS 01/30/23 02/10/23 History tablet naltrexone 50 mg tablet 50 mg PO DAILY 01/30/23 02/10/23 History ondansetron 4 mg disintegrating 4 mg translingual BID PRN Nausea 01/30/23 02/10/23 History tablet sennosides 8.6 mg-docusate sodium 1 tab PO QAM #30 tabs 02/04/23 02/10/23 Rx 50 mg tablet (Senokot-S) amoxicillin 875 mg-potassium 1 tab PO BID 02/10/23 02/10/23 History clavulanate 125 mg tablet Past Med/Surg History Medical History Anxiety and depression Asthma last exacerbation > 3 months ago, rescue inhaler use daily in the morning and HS Cervical radiculopathy Environmental and seasonal allergies Eosinophilic esophagitis GERD (gastroesophageal reflux disease) no current medications, controlled per pt History of atrial septal defect "spontaneous ASD closure on echo 12/1998" History of COVID-19 06/14/20-denies residual issues Hypertension controlled, stable per pt Post traumatic stress disorder denies concerns regarding upcoming surgery, OR room securing restraints/claustrophobia Pre-diabetes pt denies, states was on metformin and then d/c by PCP. Pre-op A1c 5.1% Sleep apnea not currently on treatment Tachycardia reports intermittent history, denies palpitations, dizziness, lightheadedness Temporomandibular joint disorder JAW CLICKING/has locked twice-last 3 yrs ago-unrelated to procedure per pt Surgical History Family history of reaction to anesthesia FATHER-WAKES UP IN MIDDLE OF PROCEDURE History of anesthesia reaction WAKES UP WITH ANESTHESIA-endoscopy History of appendectomy History of bronchoscopy MULTIPLE TIMES History of colonoscopy History of esophagogastroduodenoscopy (EGD) History of Katherine fundoplication 2009 AT [place] Hx laparoscopic cholecystectomy [facility] Family History Grandfather (Maternal) Family history of diabetes mellitus Social History Smoking Status: Never smoker Tobacco Type: Smokeless Tobacco (Dip or Chew) Second Hand Exposure: No; Do You Dip or Chew Tobacco: Yes (rarely); Tobacco Cessation Education Requested by Patient: No Hx Alcohol Use: Yes Alcohol type: hard liquor Hx Substance Use: No Preferred Language: Salvadorean Communication Ability: Effective Power Brake Operator Required: No Beliefs That Will Affect Care: None Current Living Situation: Alone Other Information That Helps Us Care for You: No Feels Safe at Home: Yes Safety Concerns: Feels Safe At This Time Assistive Devices: None Review of Systems Review of Systems: All systems reviewed & are unremarkable except as noted in HPI & below Physical Exam Physical Exam: General- Not in distress. Obese Head- atraumatic Eyes- PERRL. ENT- oropharynx clear Neck- supple, no JVD, . Lungs- clear to auscultation mild occasional wheezing, no crackles Heart- regular rate and rhythm; no murmur, no gallop. Abdomen- normal bowel sounds, soft, nontender, no distension. Extremities- no pretibial edema, no erythema seen. Neuro- alert, oriented x 3; PERRL, no facial palsy; no dysarthria; non focal. Skin- warm & dry Results & Data Results & Data Vital Signs (Past 12 Hours) Vital Signs Temp Pulse Resp BP Pulse Ox O2 Del Method 02/10/23 21:30 99 H 19 94 Room Air 02/10/23 21:30 122/88 02/10/23 21:00 95 H 19 95 Room Air 02/10/23 21:00 127/88 02/10/23 20:30 102 H 15 95 02/10/23 20:30 138/90 02/10/23 19:47 98 H 02/10/23 20:20 103 H 20 97 Room Air 02/10/23 20:10 92 H 16 100 Room Air 02/10/23 20:00 96 H 13 97 Room Air 02/10/23 19:50 101 H 13 96 Room Air 02/10/23 19:46 99 H 18 100 Room Air 02/10/23 20:09 100 Room Air 02/10/23 18:43 36.8 C 104 H 18 142/93 H 99 Room Air ECG Additional Comments: ECG sinus tachycardia rate of 107. No significant change was found Code Status & VTE Plan VTE Prophylaxis Plan VTE Prophylaxis will be ordered: Yes
[2023-02-10] MEDS ORDERED: ACETAMINOPHEN 325 MG TAB PO PRN (22:58)
[2023-02-10] MEDS ORDERED: NITROGLYCERIN SL 0.4 MG/TAB TAB SL PRN (22:58)
[2023-02-10] MEDS ORDERED: ALBUTEROL HFA 8 GM INHALER INH PRN (22:58)
[2023-02-10] MEDS ORDERED: ALBUTEROL 0.083% NEBU SOLN 3 ML VIAL INH PRN (22:58)
[2023-02-10] MEDS ORDERED: CYCLOBENZAPRINE HCL 10 MG TAB PO PRN (22:58)
[2023-02-10] MEDS ORDERED: ONDANSETRON 4 MG OD TAB SL PRN (22:58)
[2023-02-10] MEDS ORDERED: PIPERACILLIN/TAZOBACTAM 4.5 GM in DEXTROSE 5% 100 ML IV ONE (23:30)
[2023-02-11] MEDS ORDERED: PIPERACILLIN/TAZOBACTAM 4.5 GM in DEXTROSE 5% 100 ML IV SCH (06:00)
[2023-02-11] MEDS ORDERED: ENOXAPARIN INJ 40 MG/0.4 ML SYR SQ SCH (06:00)
[2023-02-11] MEDS ORDERED: methylPREDNISolone 40 MG in SYRINGE 0 ML IV SCH ×2 (06:00→14:00)
[2023-02-11] MEDS: ALBUT/IPRATROP 3MG/0.5MG NEB 3 ML VIAL NEB SCH ×3 (07:17→13:58)
[2023-02-11 07:30] LABS: Basophils # (auto) 0.01 K/uL (0-0.2); Basophils % (auto) 0.2 %; Hemoglobin 12.9 g/dl (14.0-18.0); Immature Granulocytes # (auto) 0.06 K/uL (0.01-0.20); Lymphocytes # (auto) 0.64 K/uL (1.2-3.4); Lymphocytes % (auto) 10.8 %; Mean Corpuscular Hemoglobin 30.6 pg (25.0-34.0); Mean Corpuscular Hgb Conc 33.9 g/dL (32.0-36.0); Monocytes # (auto) 0.07 K/uL (0.11-0.59); Monocytes % (auto) 1.2 %; Neutrophils # (auto) 5.16 K/uL (1.40-6.50); Neutrophils % (auto) 86.8 %; Platelet Count 534 K/uL (130-400); RDW Coefficient of Variation 13.8 % (11.5-14.5); RDW Standard Deviation 45.2 fL (36.4-46.3); Red Blood Count 4.22 M/uL (4.70-6.10); White Blood Count 5.94 K/ul (4.8-10.8)
--- NOTE | 2023-02-11 07:41 | XRay Report ---
XR chest 1V portable HISTORY: 27 years-old Male pneumothorax acute shortness of breath COMPARISON: 02/10/2023 TECHNIQUE: AP view of the chest FINDINGS: Decreased size of the trace left-sided pneumothorax, now with pleural separation of 3 mm laterally, p reviously 7 mm. A left midlung and left basilar linear atelectasis. Cardiac mediastinal and hilar blake houettes are unchanged. The right lung is clear. Trace left pleural effusion. IMPRESSION: Trace left hydropneumothorax with decreased size of the pneumothorax component. ACT 112: Negative or not required by law. The above report was generated using voice recognition software. It may contain grammatical, syntax o r spelling errors. Electronically signed by: Faustino Jefferson M.D. 02/11/2023 7:39 AM
[2023-02-11 07:47] LABS: BUN Creatinine Ratio 7.5 (10-20); Calcium 9.4 mg/dl (8.6-10.3); Creatinine Clr Calc Pharmacy 200.3 ml/min; Est GFR (African American) 141.9 ml/min; Est GFR (Non-African American) 122.4 ml/min; Magnesium 2.3 mg/dl (1.7-2.4); Potassium 4.6 mmol/L (3.5-5.1)
[2023-02-11 07:54] LABS: Troponin I High Sensitivity 3.1 pg/ml (0-20)
--- NOTE | 2023-02-11 07:54 | Pulmonary Consultation ---
Date of Consultation February 11, 2023 Assessment & Plan (1) Pneumothorax ex vacuo: (2) Pleural effusion: (3) SOB (shortness of breath): (4) History of chest tube placement: (5) Hydropneumothorax: Plan CT chest 02/04/2023 personally reviewed: Hydropneumothorax on the left side with left-sided posterior pleural effusion Subcu emphysema on the left side Minimal dependent ectasis of the right lower lobes No significant mediastinal lymphadenopathy -- Shortness of breath No wheezing on physical exam Does complain of pleuritic chest pain Currently on Zosyn Bio fire negative for everything on 02/10/2023 -- Empyema S/p pigtail catheter placement 01/30/2023 Patient was transferred to [place] where the pigtail catheter was removed and another catheter was placed with evacuation of residual pleural effusion Cultures are negative to date -- Pneumothorax ex vacuo Patient does have small pneumothorax this is likely from trapped lung from empyema which she had It will gradually resolve with time No intervention needed -- Asthma On Dupixent at home and as needed albuterol Not on any maintenance inhaler --History of ISACC Noncompliant with CPAP Patient does have large duarte which will cause large leak with any of the mask. This was mentioned to the patient and he got upset stating duarte has nothing to do with leak Plan: Decree Solu-Medrol to 40 mg on a daily basis. Can taper it off over the next 4 days Continue with Zosyn. Can transition to p.o. Augmentin prior to discharge for total of 21 days since 01/30/2023 CTA chest to be done to make sure there is no clot. Case was discussed with Dr. Arana Please note the above document was generated using voice recognition software. It may contain grammatical, syntax or spelling errors.Any formal questions or concerns about the content, text or information contained within the body of this dictation should be directly addressed to the provider for clarification. History of Present Illness Attending Physician: Bryce Arana MD History of Present Illness 27-year-old male presented to the hospital with complaints of left-sided chest pain and shortness of breath Past medical history: Asthma on Dupixent, empyema earlier this month s/p chest tube, ISACC noncompliant with CPAP Pulmonary consulted for persistent left-sided small Gardner pneumo Previous records and images personally reviewed Patient was here on 01/30/2023 for left-sided empyema, chest tube was placed by Dr. Rae. On the repeat CT chest he still had loculated effusion and was sent to [place] for VATS. At [place] patient had another pigtail placed but no surgical procedure was done. He was sent home on antibiotics His mother was in the room at the time of examination At the time of examination patient was saturating 97% on room air at rest. He was not in any respiratory distress No tachycardia. He stated that he still having pain when he takes deep breath in. Denied any wheezing when he got short of breath Denies any fever or chills Was having loose stools likely from the antibiotic which he is on. No hematochezia No nausea or vomiting. 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 Of tobacco. Non-smoker Allergies Allergy/AdvReac Type Severity Reaction Status Date / Time nitroglycerin Allergy Severe TROUBLE Verified 02/10/23 20:50 BREATHING Sulfa (Sulfonamide Allergy Intermediate EYES Verified 02/10/23 20:50 Antibiotics) SWELLING/WITH EYE DROPS sulfamethoxazole Allergy Intermediate EYES Verified 02/10/23 20:50 SWELLING trimethoprim Allergy Intermediate EYES Verified 02/10/23 20:50 SWELLING Bactrim Allergy Unknown UNK Verified 11/16/15 23:40 Home Medications Medication Instructions Recorded Confirmed Type albuterol sulfate 2.5 mg/3 mL 2.5 mg (3 mL) inhalation Q4H PRN 12/07/19 02/10/23 Rx (0.083 %) solution for nebulization shortness of breath or wheezing #180 mL albuterol sulfate 90 mcg/actuation 2 puffs inhalation QID PRN 12/07/19 02/10/23 Rx aerosol inhaler (Ventolin HFA) shortness of breath or wheezing #18 grams buspirone 10 mg tablet 10 mg PO TID 01/30/23 02/10/23 History cyclobenzaprine 10 mg tablet 10 mg PO TID PRN Spasms 01/30/23 02/10/23 History gabapentin 300 mg capsule 300 mg PO TID 01/30/23 02/10/23 History mirtazapine 15 mg disintegrating 15 mg translingual HS 01/30/23 02/10/23 History tablet naltrexone 50 mg tablet 50 mg PO DAILY 01/30/23 02/10/23 History ondansetron 4 mg disintegrating 4 mg translingual BID PRN Nausea 01/30/23 02/10/23 History tablet sennosides 8.6 mg-docusate sodium 1 tab PO QAM #30 tabs 02/04/23 02/10/23 Rx 50 mg tablet (Senokot-S) amoxicillin 875 mg-potassium 1 tab PO BID 02/10/23 02/10/23 History clavulanate 125 mg tablet Patient History Medical History Anxiety and depression Asthma last exacerbation > 3 months ago, rescue inhaler use daily in the morning and HS Cervical radiculopathy Environmental and seasonal allergies Eosinophilic esophagitis GERD (gastroesophageal reflux disease) no current medications, controlled per pt History of atrial septal defect "spontaneous ASD closure on echo 12/1998" History of COVID-19 06/14/20-denies residual issues Hypertension controlled, stable per pt Post traumatic stress disorder denies concerns regarding upcoming surgery, OR room securing restraints/claustrophobia Pre-diabetes pt denies, states was on metformin and then d/c by PCP. Pre-op A1c 5.1% Sleep apnea not currently on treatment Tachycardia reports intermittent history, denies palpitations, dizziness, lightheadedness Temporomandibular joint disorder JAW CLICKING/has locked twice-last 3 yrs ago-unrelated to procedure per pt Surgical History Family history of reaction to anesthesia FATHER-WAKES UP IN MIDDLE OF PROCEDURE History of anesthesia reaction WAKES UP WITH ANESTHESIA-endoscopy History of appendectomy History of bronchoscopy MULTIPLE TIMES History of colonoscopy History of esophagogastroduodenoscopy (EGD) History of Katherine fundoplication 2009 AT [place] Hx laparoscopic cholecystectomy [facility] Family History Grandfather (Maternal) Family history of diabetes mellitus Social History Smoking Status: Never smoker Tobacco Type: Smokeless Tobacco (Dip or Chew) Second Hand Exposure: No; Do You Dip or Chew Tobacco: Yes (rarely); Tobacco Cessation Education Requested by Patient: No Hx Alcohol Use: Yes Alcohol type: hard liquor Hx Substance Use: No Preferred Language: Kuwaiti Communication Ability: Effective Hardware Designer Required: No Beliefs That Will Affect Care: None Current Living Situation: Alone Other Information That Helps Us Care for You: No Feels Safe at Home: Yes Safety Concerns: Feels Safe At This Time Assistive Devices: None Review of Systems Review of Systems: All systems reviewed & are unremarkable except as noted in HPI & below Physical Exam Physical Exam: Constitutional: No acute distress HEENT: EOMI, PERRLA Respiratory system: Good air entry bilaterally, no wheeze, no rhonchi, no crackles CVS: S1-S2 positive, no murmurs or gallops Abdomen: Soft, nontender, nondistended, positive bowel sounds x4, obese Extremities: +2 pulses bilaterally radialis/ dorsalis pedis, no cyanosis, no edema Neuro: Awake alert oriented x3 Psych: Normal mood and affect G/U: No [place] Skin: no rashes, warm and dry Lymphatic: no cervical or axillary lymphadenopathy Results & Data Results & Data Vital Signs (Past 12 Hours) Vital Signs Temp Pulse Pulse Resp BP BP Pulse Ox 02/11/23 07:18 82 18 95 02/11/23 03:25 36.5 C 88 18 134/89 96 02/10/23 23:40 36.9 C 117 H 21 143/78 H 97 02/10/23 23:40 109 H 17 97 02/10/23 23:18 102 H 02/10/23 23:13 02/10/23 22:34 36.8 C 98 H 14 157/90 H 98 02/10/23 22:21 02/10/23 21:30 99 H 19 94 02/10/23 21:30 122/88 02/10/23 21:00 95 H 19 95 02/10/23 21:00 127/88 02/10/23 20:30 102 H 15 95 02/10/23 20:30 138/90 02/10/23 20:20 103 H 20 97 02/10/23 20:10 92 H 16 100 02/10/23 20:00 96 H 13 97 02/10/23 19:50 101 H 13 96 02/10/23 20:09 100 O2 Del Method FiO2 02/11/23 07:18 Room Air 02/11/23 03:25 Room Air 02/10/23 23:40 Room Air 02/10/23 23:40 Room Air 21 02/10/23 23:18 02/10/23 23:13 Room Air 02/10/23 22:34 Room Air 02/10/23 22:21 Room Air 02/10/23 21:30 Room Air 02/10/23 21:30 02/10/23 21:00 Room Air 02/10/23 21:00 02/10/23 20:30 02/10/23 20:30 02/10/23 20:20 Room Air 02/10/23 20:10 Room Air 02/10/23 20:00 Room Air 02/10/23 19:50 Room Air 02/10/23 20:09 Room Air Laboratory Results 02/11/23 06:37 02/11/23 06:37 PG Care Time/CCT Total # of Minutes Spent Total Time Spent with Patient: Total time spent is greater than 50% in coordination of care (as documented) at patient's floor/unit and/or counseling patient: [place] [address] IN/OBS CONSULT LVL 5,80M Patient Type New Diagnoses Pneumothorax ex vacuo J93.83 Pleural effusion J90 SOB (shortness of breath) R06.02 History of chest tube placement Z98.890 Hydropneumothorax J94.8
[2023-02-11] MEDS ORDERED: NALTREXONE HCL 50 MG TAB PO SCH (09:00)
[2023-02-11] MEDS ORDERED: GABAPENTIN 300 MG CAP PO SCH (09:00)
[2023-02-11] MEDS ORDERED: busPIRone 5 MG TAB PO SCH (09:00)
[2023-02-11] MEDS ORDERED: DOCUSATE SODIUM/SENNA 50/8.6MG TAB PO SCH (09:00)
--- NOTE | 2023-02-11 09:18 | Hospitalist Progress Note ---
Date of Service February 11, 2023 Assessment & Plan (1) SOB (shortness of breath): Plan: 27-year-old male with past medical significant for severe persistent asthma, insulin resistant, morbid obesity, GERD, hyperplastic polyp of ascending colon, history of cervical radiculopathy, history of depression and suicide attempt and general anxiety disorder and panic attacks presents with shortness of breath and chest tightness Shortness of breath Chest tightness Occasional wheezing on exam on admission - wheezing now resolved Mostly asthma exacerbation Received IV Solu-Medrol and nebs in the ER Continued with IV Solu-Medrol 40 mg 3 times daily DuoNebs [id number] and IV Zosyn on admission Empyema Admitted on January 30 with sepsis and empyema S/p pigtail catheter and treated with Unasyn Repeat CT scan little residual collection so transferred to [place] for VATS procedure At [place] interventional radiology placed a new chest tube and old catheter was taken out Fluid collection resolved. Cultures did not grow anything was discharged on Augmentin for 4 weeks and advised to follow outpatient with ID. Chest x-ray on admission shows small left pleural effusion and small left pneumothorax. Pulmonary consulted - CTA chest obtained - 1. No acute abnormality and in particular no evidence of pulmonary embolus. 2. Tiny left hydropneumothorax remains. Discussed w/ pulm. medicine - recommend to start on Breo inh. on DC, prednisone taper, cont. Augmentin as previously prescribed. Outpt follow up w/ pcp and pulmonary med. Morbid obesity needs counseling Prediabetes HbA1c 5.6% level History of depression History of suicidal attempt Generalized anxiety disorder Panic disorder On Remeron and buspirone Dark stools Hemoglobin 13.1 Hemoccult ordered, not obtained, follow up as outpt History of ASD as per records Echo done on last admission was okay [place]-Schlatter disease per records DVT prophylaxis Lovenox Full code Admission and Anticipated Discharge Date Admission Date: February 10, 2023 Subjective Pt seen in follow up of shortness of breath, chest pain, recent hospitalization for empyema and s/p chest tube placement and removal, now w/ small pneumothorax Sitting up in bed in NAD, breathing comfortably on RA Denies fever, chills, chest pain, currently also denies shortness of breath or significant pain - report pain 2/10 Pt's mother present at the bedside Pt seen by pulmonary medicine and CTA chest ordered Update: Discussed w/ pulmonary CT findings - ok to discharge and follow up as outpt Discussed results with the pt and he plans to follow up w/ PCP and 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 Review of Systems Review of Systems: All systems reviewed & are unremarkable except as noted in Subjective Physical Exam Physical Exam: General- young obese male in NAD Head- atraumatic Eyes- PERRL. ENT- oropharynx clear Neck- thick, no JVD Lungs- clear to auscultation b/l, no crackles Heart- regular rate and rhythm; no murmur, no gallop. Abdomen- normal bowel sounds, soft, nontender, no distension. Extremities- no pretibial edema, no erythema seen. Neuro- alert, oriented x 3; PERRL, no facial palsy; no dysarthria; moves extremities Skin- warm & dry Results & Data Results & Data Vital Signs (Past 12 Hours) Vital Signs Temp Pulse Pulse Resp BP BP Pulse Ox 02/11/23 07:47 36.4 C L 89 18 131/85 94 02/11/23 07:18 82 18 95 02/11/23 03:25 36.5 C 88 18 134/89 96 02/10/23 23:40 36.9 C 117 H 21 143/78 H 97 02/10/23 23:40 109 H 17 97 02/10/23 23:18 102 H 02/10/23 23:13 02/10/23 22:34 36.8 C 98 H 14 157/90 H 98 02/10/23 22:21 02/10/23 21:30 99 H 19 94 02/10/23 21:30 122/88 O2 Del Method FiO2 02/11/23 07:47 Room Air 02/11/23 07:18 Room Air 02/11/23 03:25 Room Air 02/10/23 23:40 Room Air 02/10/23 23:40 Room Air 21 02/10/23 23:18 02/10/23 23:13 Room Air 02/10/23 22:34 Room Air 02/10/23 22:21 Room Air 02/10/23 21:30 Room Air 02/10/23 21:30 Laboratory Results 02/11/23 02/11/23 02/10/23 Range/Units 06:37 06:37 20:17 WBC 5.94 (4.8-10.8) K/ul RBC 4.22 L (4.70-6.10) M/uL Hgb 12.9 L (14.0-18.0) g/dl Hct 38.0 L (42.0-52.0) % MCV 90.0 (80.0-100.0) fL MCH 30.6 (25.0-34.0) pg MCHC 33.9 (32.0-36.0) g/dL RDW Std Deviation 45.2 (36.4-46.3) fL RDW Coeff of Pacheco 13.8 (11.5-14.5) % Plt Count 534 H (130-400) K/uL MPV 10.0 (9.4-12.4) fL Immature Gran % (Auto) 1.0 % Neut % (Auto) 86.8 % Lymph % (Auto) 10.8 % Major % (Auto) 1.2 % Eos % (Auto) 0.0 % Baso % (Auto) 0.2 % Neut # (Auto) 5.16 (1.40-6.50) K/uL Lymph # (Auto) 0.64 L (1.2-3.4) K/uL Major # (Auto) 0.07 L (0.11-0.59) K/uL Eos # (Auto) 0.00 (0-0.50) K/uL Baso # (Auto) 0.01 (0-0.2) K/uL Immature Gran # (Auto) 0.06 (0.01-0.20) K/uL PT (9.0-12.0) Seconds INR (0.9-1.1) APTT (21.0-31.0) Seconds PTT Ratio Sodium 134 L (136-145) mmol/L Potassium 4.6 D (3.5-5.1) mmol/L Chloride 103 (98-107) mmol/L Carbon Dioxide 25 (21-32) mmol/L Anion Gap 6 (3-11) BUN 6 (6-23) mg/dl Creatinine 0.80 (0.6-1.4) mg/dl Est Cr Clr Drug Dosing 200.3 ml/min Est GFR ( Amer) 141.9 ml/min Est GFR (Non-Af Amer) 122.4 ml/min BUN/Creatinine Ratio 7.5 L (10-20) Glucose 153 H (70-99(Fasting)) mg/dl Lactate 1.2 (0.4-2.0) mmol/L Calcium 9.4 (8.6-10.3) mg/dl Magnesium 2.3 (1.7-2.4) mg/dl Total Bilirubin (0.2-1.0) mg/dl AST (13-39) U/L ALT (7-52) U/L Alkaline Phosphatase (34-104) U/L Troponin I High Sens 3.1 (0-20) pg/ml Total Protein (6.0-8.3) gm/dl Albumin (3.4-5.0) gm/dl Globulin (2.5-4.0) gm/dl Albumin/Globulin Ratio (0.9-2) Adenovirus (PCR) (NotDetected) B. pertussis DNA (PCR) (NotDetected) B.parapertussis DNA PCR (NotDetected) C. pneumoniae DNA (PCR) (NotDetected) Coronavirus OC43 (PCR) (NotDetected) Coronavirus HKU1 (PCR) (NotDetected) Coronavirus 229E (PCR) (NotDetected) SARS-CoV-2 (PCR) (NotDetected) Coronavirus NL63 (PCR) (NotDetected) Human Metapneumovir PCR (NotDetected) Influenza Type A (PCR) (NotDetected) Influenza Type B (PCR) (NotDetected) M. pneumoniae (PCR) (NotDetected) Parainfluenza 1 (PCR) (NotDetected) Parainfluenza 2 (PCR) (NotDetected) Parainfluenza 3 (PCR) (NotDetected) Parainfluenza 4 (PCR) (NotDetected) RSV (PCR) (NotDetected) Entero/Rhino (PCR) (NotDetected) 02/10/23 02/10/23 02/10/23 Range/Units 20:17 20:17 20:17 WBC 5.99 (4.8-10.8) K/ul RBC 4.31 L (4.70-6.10) M/uL Hgb 13.1 L (14.0-18.0) g/dl Hct 39.8 L (42.0-52.0) % MCV 92.3 (80.0-100.0) fL MCH 30.4 (25.0-34.0) pg MCHC 32.9 (32.0-36.0) g/dL RDW Std Deviation 47.7 H (36.4-46.3) fL RDW Coeff of Pacheco 14.0 (11.5-14.5) % Plt Count 453 H (130-400) K/uL MPV 9.9 (9.4-12.4) fL Immature Gran % (Auto) 0.8 % Neut % (Auto) 65.6 % Lymph % (Auto) 25.0 % Major % (Auto) 4.5 % Eos % (Auto) 3.8 % Baso % (Auto) 0.3 % Neut # (Auto) 3.92 (1.40-6.50) K/uL Lymph # (Auto) 1.50 (1.2-3.4) K/uL Major # (Auto) 0.27 (0.11-0.59) K/uL Eos # (Auto) 0.23 (0-0.50) K/uL Baso # (Auto) 0.02 (0-0.2) K/uL Immature Gran # (Auto) 0.05 (0.01-0.20) K/uL PT 12.2 H (9.0-12.0) Seconds INR 1.1 (0.9-1.1) APTT 26.7 (21.0-31.0) Seconds PTT Ratio 0.9 Sodium 136 (136-145) mmol/L Potassium 3.7 (3.5-5.1) mmol/L Chloride 102 (98-107) mmol/L Carbon Dioxide 27 (21-32) mmol/L Anion Gap 7 (3-11) BUN 3 L (6-23) mg/dl Creatinine 1.01 (0.6-1.4) mg/dl Est Cr Clr Drug Dosing 159.4 ml/min Est GFR ( Amer) 117.6 ml/min Est GFR (Non-Af Amer) 101.5 ml/min BUN/Creatinine Ratio 3.0 L (10-20) Glucose 87 (70-99(Fasting)) mg/dl Lactate (0.4-2.0) mmol/L Calcium 9.1 (8.6-10.3) mg/dl Magnesium 2.1 (1.7-2.4) mg/dl Total Bilirubin 0.5 (0.2-1.0) mg/dl AST 39 (13-39) U/L ALT 24 (7-52) U/L Alkaline Phosphatase 72 (34-104) U/L Troponin I High Sens 4.2 (0-20) pg/ml Total Protein 7.2 (6.0-8.3) gm/dl Albumin 3.5 (3.4-5.0) gm/dl Globulin 3.7 (2.5-4.0) gm/dl Albumin/Globulin Ratio 0.9 (0.9-2) Adenovirus (PCR) (NotDetected) B. pertussis DNA (PCR) (NotDetected) B.parapertussis DNA PCR (NotDetected) C. pneumoniae DNA (PCR) (NotDetected) Coronavirus OC43 (PCR) (NotDetected) Coronavirus HKU1 (PCR) (NotDetected) Coronavirus 229E (PCR) (NotDetected) SARS-CoV-2 (PCR) (NotDetected) Coronavirus NL63 (PCR) (NotDetected) Human Metapneumovir PCR (NotDetected) Influenza Type A (PCR) (NotDetected) Influenza Type B (PCR) (NotDetected) M. pneumoniae (PCR) (NotDetected) Parainfluenza 1 (PCR) (NotDetected) Parainfluenza 2 (PCR) (NotDetected) Parainfluenza 3 (PCR) (NotDetected) Parainfluenza 4 (PCR) (NotDetected) RSV (PCR) (NotDetected) Entero/Rhino (PCR) (NotDetected) 02/10/23 Range/Units 20:05 WBC (4.8-10.8) K/ul RBC (4.70-6.10) M/uL Hgb (14.0-18.0) g/dl Hct (42.0-52.0) % MCV (80.0-100.0) fL MCH (25.0-34.0) pg MCHC (32.0-36.0) g/dL RDW Std Deviation (36.4-46.3) fL RDW Coeff of Pacheco (11.5-14.5) % Plt Count (130-400) K/uL MPV (9.4-12.4) fL Immature Gran % (Auto) % Neut % (Auto) % Lymph % (Auto) % Major % (Auto) % Eos % (Auto) % Baso % (Auto) % Neut # (Auto) (1.40-6.50) K/uL Lymph # (Auto) (1.2-3.4) K/uL Major # (Auto) (0.11-0.59) K/uL Eos # (Auto) (0-0.50) K/uL Baso # (Auto) (0-0.2) K/uL Immature Gran # (Auto) (0.01-0.20) K/uL PT (9.0-12.0) Seconds INR (0.9-1.1) APTT (21.0-31.0) Seconds PTT Ratio Sodium (136-145) mmol/L Potassium (3.5-5.1) mmol/L Chloride (98-107) mmol/L Carbon Dioxide (21-32) mmol/L Anion Gap (3-11) BUN (6-23) mg/dl Creatinine (0.6-1.4) mg/dl Est Cr Clr Drug Dosing ml/min Est GFR ( Amer) ml/min Est GFR (Non-Af Amer) ml/min BUN/Creatinine Ratio (10-20) Glucose (70-99(Fasting)) mg/dl Lactate (0.4-2.0) mmol/L Calcium (8.6-10.3) mg/dl Magnesium (1.7-2.4) mg/dl Total Bilirubin (0.2-1.0) mg/dl AST (13-39) U/L ALT (7-52) U/L Alkaline Phosphatase (34-104) U/L Troponin I High Sens (0-20) pg/ml Total Protein (6.0-8.3) gm/dl Albumin (3.4-5.0) gm/dl Globulin (2.5-4.0) gm/dl Albumin/Globulin Ratio (0.9-2) Adenovirus (PCR) Not Detected (NotDetected) B. pertussis DNA (PCR) Not Detected (NotDetected) B.parapertussis DNA PCR Not Detected (NotDetected) C. pneumoniae DNA (PCR) Not Detected (NotDetected) Coronavirus OC43 (PCR) Not Detected (NotDetected) Coronavirus HKU1 (PCR) Not Detected (NotDetected) Coronavirus 229E (PCR) Not Detected (NotDetected) SARS-CoV-2 (PCR) Not Detected (NotDetected) Coronavirus NL63 (PCR) Not Detected (NotDetected) Human Metapneumovir PCR Not Detected (NotDetected) Influenza Type A (PCR) Not Detected (NotDetected) Influenza Type B (PCR) Not Detected (NotDetected) M. pneumoniae (PCR) Not Detected (NotDetected) Parainfluenza 1 (PCR) Not Detected (NotDetected) Parainfluenza 2 (PCR) Not Detected (NotDetected) Parainfluenza 3 (PCR) Not Detected (NotDetected) Parainfluenza 4 (PCR) Not Detected (NotDetected) RSV (PCR) Not Detected (NotDetected) Entero/Rhino (PCR) Not Detected (NotDetected) Medications Administered Current Inpatient Medications Acetaminophen (Acetaminophen 325 Mg Tab) 650 mg PO Q4H PRN PRN Reason: Pain or Fever Stop: 03/12/23 22:57 Albuterol (Albuterol 0.083% Nebu Soln 3 Ml Vial) 2.5 mg INH Q4H PRN; Protocol PRN Reason: shortness of breath or wheezing Stop: 03/12/23 22:57 Last Admin: 02/10/23 23:39 Dose: 2.5 mg Albuterol (Albuterol Hfa 8 Gm Inhaler) 2 puffs INH QID PRN PRN Reason: shortness of breath or wheezing Stop: 03/12/23 22:57 Albuterol (Albut/Ipratrop 3mg/0.5mg Neb 3 Ml Vial) 3 ml NEB QIDR OMI; Protocol Stop: 03/13/23 06:59 Last Admin: 02/11/23 07:17 Dose: 3 ml Buspirone HCl (Buspirone 5 Mg Tab) 10 mg PO TID OMI Stop: 03/13/23 08:59 Last Admin: 02/11/23 08:07 Dose: 10 mg Cyclobenzaprine HCl (Cyclobenzaprine Hcl 10 Mg Tab) 10 mg PO TID PRN PRN Reason: Spasms Stop: 03/12/23 22:57 Enoxaparin Sodium (Enoxaparin Inj 40 Mg/0.4 Ml Syr) 40 mg SQ Q12H OMI Stop: 03/13/23 05:59 Last Admin: 02/11/23 05:30 Dose: 40 mg Gabapentin (Gabapentin 300 Mg Cap) 300 mg PO TID OMI Stop: 03/13/23 08:59 Last Admin: 02/11/23 08:07 Dose: 300 mg Piperacillin Sod/Tazobactam (Sod 4.5 gm/ Dextrose) 120 mls @ 30 mls/hr IV Q8H [facility]; Protocol Stop: 02/18/23 05:59 Last Admin: 02/11/23 05:30 Dose: 30 mls/hr Methylprednisolone 40 mg/ (Syringe) 0.64 mls @ 1.5 mls/min IV Q24H [facility] Stop: 03/13/23 13:59 Mirtazapine (Mirtazapine Soltab 15 Mg) 15 mg PO HS [facility] Stop: 03/13/23 20:59 Naltrexone HCl (Naltrexone Hcl 50 Mg Tab) 50 mg PO DAILY OMI Stop: 03/13/23 08:59 Last Admin: 02/11/23 08:07 Dose: 50 mg Ondansetron HCl (Ondansetron 4 Mg Od Tab) 4 mg SL BID PRN PRN Reason: Nausea Stop: 03/12/23 22:57 Senna/Docusate Sodium (Docusate Sodium/Senna 50/8.6mg Tab) 1 tab PO QAM [facility] Stop: 03/13/23 08:59 Last Admin: 02/11/23 08:07 Dose: 1 tab
[2023-02-11] MEDS ORDERED: IOVERSOL 350 MG 125mL Prefilled Syringe IV ONE (11:04)
--- NOTE | 2023-02-11 11:35 | CT Scan Report ---
CT angio chest PE protocol CLINICAL HISTORY: PE TECHNIQUE: Multidetector row helical CT of the chest was performed with angiographic protocol. Santillan l and sagittal reformations were obtained. Coronal and sagittal MIPS were obtained from the axial yudelka a set and were submitted for review. Automated dose lowering techniques and/or adjustment according to patient size were utilized for this exam. CT DOSE: 939.99 mGy.cm Comparison: Comparison is made to CT chest 01/25/2023 FINDINGS: Lungs and pleura: There is a small left hydropneumothorax. Atelectasis is seen. Previously noted pigt ail catheter has been removed. Heart and pericardium: Heart size is normal. No pericardial effusion. Vessels: No evidence of pulmonary embolism. Mediastinum and aster: Subcentimeter lymph nodes are seen. Chest wall and lower neck: Unremarkable. Abdomen: Hepatic steatosis is noted. Bones: Unremarkable. IMPRESSION: 1. No acute abnormality and in particular no evidence of pulmonary embolus. 2. Tiny left hydropneumothorax remains. ACT 112: Negative or not required by law. Electronically signed by: Froilan Galvan M.D. 02/11/2023 11:33 AM
--- NOTE | 2023-02-11 13:11 | Discharge Summary ---
Date of Service February 11, 2023 Admission HPI Per Admitting Provider 27-year-old male with past medical significant for severe persistent asthma, insulin resistant, morbid obesity, GERD, hyperplastic polyp of ascending colon, history of cervical radiculopathy, history of depression and suicide attempt and general anxiety disorder and panic attacks presents with shortness of breath and chest tightness. Patient was admitted in January 30 to the hospital with sepsis secondary to left-sided empyema s/p pigtail catheter insertion. Pigtail catheter drained about 300 cc per records. Was on Unasyn. Cultures did not grow anything. And repeat CT showed some residual empyema posteromedially and pigtail pleural Drainage catheter was seemed to be away from collection. Patient was transferred to [place] for VATS procedure. A new chest tube was placed by interventional radiology at [place] and old drain was removed. The patient effusion resolved and the new drain was removed. The fluid from the cultures did not grow any organisms. Patient was discharged on Augmentin for 4- week course and to follow-up with ID as outpatient. Patient was discharged on February 07. Patient states again last night he was feeling short of breath and chest tightness.. Breathing treatments were not helping. Called PCP and advised to come to the ER. Currently resting comfortably and hemodynamic stable. Says has dry cough. Denies any fevers. Has night sweats. Currently no headache. Has some blurred visions. No earache or runny nose or sore throat. Appetite is okay. No difficulty swallowing. No nausea. Has some abdominal discomfort. Was constipated. But since patient is discharged home he had few bowel movements and states they are dark and attributes to the medication. Micturating okay. Past medical history as mentioned above. ASD and [place]-Schlatter disease per r ecords. Past surgical history colonoscopy, EGD, EGD with biopsy, esophagogastric fundoplasty, laparoscopic cholecystectomy. Social history snuff tobacco 1 can every 2 days. Sees used to drink alcohol heavily but lately drinking occasionally, last drink was couple of weeks ago. No drug use Family history Brother has allergies, asthma. Father has allergies, asthma, hypertension. Mother has allergies, fibromyalgia. Sister has heart issue. Maternal grandmother had Crohn's disease. Admission Exam Per Admitting Provider General- Not in distress. Obese Head- atraumatic Eyes- PERRL. ENT- oropharynx clear Neck- supple, no JVD, . Lungs- clear to auscultation mild occasional wheezing, no crackles Heart- regular rate and rhythm; no murmur, no gallop. Abdomen- normal bowel sounds, soft, nontender, no distension. Extremities- no pretibial edema, no erythema seen. Neuro- alert, oriented x 3; PERRL, no facial palsy; no dysarthria; non focal. Skin- warm & dry Principal Diagnosis Asthma Pneumothorax ex vacuo Recent hx of empyema Discharge Exam General- young obese male in NAD Head- atraumatic Eyes- PERRL. ENT- oropharynx clear Neck- thick, no JVD Lungs- clear to auscultation b/l, no crackles Heart- regular rate and rhythm; no murmur, no gallop. Abdomen- normal bowel sounds, soft, nontender, no distension. Extremities- no pretibial edema, no erythema seen. Neuro- alert, oriented x 3; PERRL, no facial palsy; no dysarthria; moves extremities Skin- warm & dry Discharge Data Allergies Allergy/AdvReac Type Severity Reaction Status Date / Time nitroglycerin Allergy Severe TROUBLE Verified 02/10/23 20:50 BREATHING Sulfa (Sulfonamide Allergy Intermediate EYES Verified 02/10/23 20:50 Antibiotics) SWELLING/WITH EYE DROPS sulfamethoxazole Allergy Intermediate EYES Verified 02/10/23 20:50 SWELLING trimethoprim Allergy Intermediate EYES Verified 02/10/23 20:50 SWELLING Bactrim Allergy Unknown UNK Verified 11/16/15 23:40 Consultations 02/10/23 20:43 ED Decision to Admit Stat 02/11/23 08:00 Consult Pulmonology Routine Ordered Studies 02/11/23 09:01 CT for pulmonary embolism PE [CT angio chest PE protocol] Urgent FINDINGS: Lungs and pleura: There is a small left hydropneumothorax. Atelectasis is seen. Previously noted pigtail catheter has been removed. Heart and pericardium: Heart size is normal. No pericardial effusion. Vessels: No evidence of pulmonary embolism. Mediastinum and aster: Subcentimeter lymph nodes are seen. Chest wall and lower neck: Unremarkable. Abdomen: Hepatic steatosis is noted. Bones: Unremarkable. IMPRESSION: 1. No acute abnormality and in particular no evidence of pulmonary embolus. 2. Tiny left hydropneumothorax remains. Hospital Course (1) SOB (shortness of breath): 27-year-old male with past medical significant for severe persistent asthma, insulin resistant, morbid obesity, GERD, hyperplastic polyp of ascending colon, history of cervical radiculopathy, history of depression and suicide attempt and general anxiety disorder and panic attacks presents with shortness of breath and chest tightness Shortness of breath Chest tightness Occasional wheezing on exam on admission - wheezing now resolved Mostly asthma exacerbation Received IV Solu-Medrol and nebs in the ER Continued with IV Solu-Medrol 40 mg 3 times daily DuoNebs [id number] and IV Zosyn on admission Empyema Admitted on January 30 with sepsis and empyema S/p pigtail catheter and treated with Unasyn Repeat CT scan little residual collection so transferred to [place] for VATS procedure At [place] interventional radiology placed a new chest tube and old catheter was taken out Fluid collection resolved. Cultures did not grow anything was discharged on Augmentin for 4 weeks and advised to follow outpatient with ID. Chest x-ray on admission shows small left pleural effusion and small left pneumothorax. Pulmonary consulted - CTA chest obtained - 1. No acute abnormality and in particular no evidence of pulmonary embolus. 2. Tiny left hydropneumothorax remains. Discussed w/ pulm. medicine - recommend to start on Breo inh. on DC, prednisone taper, cont. Augmentin as previously prescribed. Outpt follow up w/ pcp and pulmonary med. Morbid obesity needs counseling Prediabetes HbA1c 5.6% level History of depression History of suicidal attempt Generalized anxiety disorder Panic disorder On Remeron and buspirone Dark stools Hemoglobin 13.1 Hemoccult ordered, not obtained, follow up as outpt History of ASD as per records Echo done on last admission was okay [place]-Schlatter disease per records Total Time Total Time Spent Total Time Spent (In Minutes): 40 Discharge Plan Discharge Items Patient Disposition: Home - Self-Care Reason For Visit: ASTHMA EX, PNEUOMTHORAX Discharge Diagnosis: Asthma Pneumothorax ex vacuo Recent hx of empyema Condition on Discharge: Fair Activity: Per Instructions section Non-emergency contact: Primary Care Provider and Brand Engineer Call non-emergency contact if: you have any medication questions and your symptoms worsen Follow-up/Referrals: Lorenza Mcdonough DO [Primary Care Provider] - (Date & Time 02/19/2023 1:40 PM Provider Lorenza Mcdonough Department Family [facility] [place] ) Diet: Regular Addtl Attending Provider Instructions: Follow up with your primary care provider and food manager. The appointment with your primary care doctor was scheduled for you for February 19. Continue taking Augmentin as prescribed. Recommend to continue taking probiotic. Take prednisone 40 mg for 3 days, then 20 mg for 2 more days. You were also started on Breo inhaler - discuss this with your primary care doctor and food manager. Pending Studies at Discharge: Yes Studies:: blood cultx results Stand-Alone Forms: My [facility] [employer], Smoking Cessation Medications and DC Order Prescriptions: New fluticasone furoate-vilanterol [Breo Ellipta] 100-25 mcg/dose Blister With Device 1 ea inhalation DAILY Qty: 60 0RF prednisone 20 mg tablet 20 mg PO UD Qty: 8 0RF Rx Instructions: Take 2 tabs for 3 days, then take 1 tab for 2 days Continued albuterol sulfate 2.5 mg /3 mL (0.083 %) solution for nebulization 2.5 mg INH Q4H PRN (Reason: shortness of breath or wheezing) Qty: 180 5RF albuterol sulfate [Ventolin HFA] 90 mcg/actuation HFA aerosol inhaler 2 puffs INH QID PRN (Reason: shortness of breath or wheezing) Qty: 18 5RF ondansetron 4 mg tablet,disintegrating 4 mg translingual BID PRN (Reason: Nausea) cyclobenzaprine 10 mg tablet 10 mg PO TID PRN (Reason: Spasms) naltrexone 50 mg tablet 50 mg PO DAILY buspirone 10 mg tablet 10 mg PO TID mirtazapine 15 mg tablet,disintegrating 15 mg translingual HS gabapentin 300 mg capsule 300 mg PO TID sennosides-docusate sodium [Senokot-S] 8.6-50 mg Tablet 1 tab PO QAM Qty: 30 0RF amoxicillin-pot clavulanate 875-125 mg tablet 1 tab PO BID Discharge Orders: Discharge Order (Routine); Ordered 02/11/23 Ordered By: Bryce Arana Admission Data Admit Date/Time: 02/10/23 21:41 Attending Provider: Bryce Arana Admit Provider: Vj Vick Primary Care Provider: Lorenza Mcdonough Other Providers: Vj Vick ; Perez Rae
--- NOTE | 2023-02-11 17:20 | Electrocardiogram Report ---
Test Reason : Blood Pressure : / mmHG Vent. Rate : 107 BPM Atrial Rate : 107 BPM P-R Int : 150 ms QRS Dur : 088 ms QT Int : 334 ms P-R-T Axes : 039 030 025 degrees QTc Int : 445 ms Sinus tachycardia Otherwise normal ECG When compared with ECG of 29-JAN-2023 21:58, No significant change was found Confirmed by Jaime Rosenbaum ([id number]) on 02/11/2023 5:20:20 PM Referred By: Lorenza Mcdonough Confirmed By:Jaime Rosenbaum
[2023-02-11] MEDS ORDERED: MIRTAZAPINE SOLTAB 15 MG PO SCH (21:00)
[2023-02-12] MEDS ORDERED: FLUTICASONE/VILANTEROL 100/25MCG 14 PUFFS/INHALER INH SCH (09:00)
== END 2023-02-11 14:15 | disposition home or self-care (01) | DRG 202 ==
LOC: ED 18:33 → 2S 21:41